=== PATIENT | male | born 1950 | race American Indian/Alaskan Native ===

== ENCOUNTER 2018-03-25 03:30 | Inpatient (IN) | payer MEDICARE ==
[2018-03-25 04:06] LABS: Basophils % (Auto) 0.4 % (0.0-1.8); Eosinophils # (Auto) 0.6 K/mm3 (0.0-0.4); Eosinophils % (Auto) 11.6 % (0.0-4.3); Hematocrit 34.6 % (35.5-45.6); Hemoglobin 11.1 gm/dl (11.8-15.2); Lymphocytes # (Auto) 1.5 K/mm3 (1.2-5.4); Lymphocytes % (Auto) 28.8 % (13.4-35.0); Mean Corpuscular HGB Conc 32 % (32-34); Mean Corpuscular Volume 97 fl (84-94); Monocytes # (Auto) 0.5 K/mm3 (0.0-0.8); Monocytes % (Auto) 9.7 % (0.0-7.3); Platelet Count 236 K/mm3 (140-440); Red Blood Count 3.56 M/mm3 (3.65-5.03); Red Cell Distribution Width 16.6 % (13.2-15.2)
[2018-03-25 04:23] LABS: Calcium 8.8 mg/dL (8.4-10.2)
--- NOTE | 2018-03-25 04:32 | XRay Report ---
FINAL REPORT EXAM: XR CHEST 1V AP HISTORY: sob TECHNIQUE: AP portable view(s) of the chest obtained. PRIORS: 08/08/2017 FINDINGS: No mediastinal shift. Cardiac silhouette is not enlarged. No pneumothorax, effusion, or focal pulmona ry opacity identified. No acute skeletal findings. IMPRESSION: No acute pulmonary finding identified.
[2018-03-25 04:53] LABS: Chol/HDL Ratio 3.31 %
--- NOTE | 2018-03-25 05:15 | Emergency Department Report ---
ED General Adult HPI - General Chief complaint: Chest Pain Stated complaint: MISSING DIALYSIS Time Seen by Provider: 03/25/18 03:57 Source: patient Mode of arrival: Ambulatory Limitations: No Limitations - History of Present Illness Initial comments: 67-year-old male with ESRD presents to the ED for dialysis. She states it has been one week since he was dialyzed states he missed 3 sessions because he was out of town. When patient returned to his dialysis clinic today, he was told to come to the ER. Patient reports very mild chest pain and shortness of breath. 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 States has no PCP. -: week(s) (1) Location: chest Consistency: intermittent Improves with: none Worsens with: none Associated Symptoms: chest pain, shortness of breath - Related Data Home Medications Medication Instructions Recorded Confirmed Last Taken Allopurinol [Zyloprim] 100 mg PO QDAY 11/02/17 03/25/18 01/04/18 Cholecalciferol (Vitamin D3) 2,000 unit PO DAILY 11/02/17 03/25/18 01/04/18 [Vitamin D3] Furosemide [Lasix] 80 mg PO DAILY 11/02/17 03/25/18 01/04/18 Omeprazole 40 mg PO QDAY 11/02/17 03/25/18 01/05/18 04:15 Previous Rx's Medication Instructions Recorded Last Taken Type AtorvaSTATin [Lipitor] 40 mg PO QHS #30 tab 08/14/17 01/04/18 Rx Polyethylene Glycol 3350 [Miralax 17 gm PO BID #60 packet 08/14/17 01/04/18 Rx 3350] Aspirin EC [Aspirin Enteric Coated 81 mg PO QDAY #30 tablet 11/04/17 01/04/18 Rx TAB] HYDROcodone/ACETAMINOPHEN 1 each PO Q6H PRN #20 tablet 01/05/18 Unknown Rx [Hydrocodone-Acetamin 5-325 mg] Allergies Allergy/AdvReac Type Severity Reaction Status Date / Time No Known Allergies Allergy Verified 11/02/17 07:12 ED Review of Systems ROS: Stated complaint: MISSING DIALYSIS Other details as noted in HPI Comment: All other systems reviewed and negative Constitutional: denies: chills, fever Respiratory: shortness of breath Cardiovascular: chest pain ED Past Medical Hx - Past Medical History Previous Medical History?: Yes Hx Hypertension: Yes Hx CVA: Yes Hx Heart Attack/AMI: Yes (07/2017) Hx Congestive Heart Failure: Yes Hx GERD: Yes Hx Renal Disease: Yes Hx Arthritis: Yes (Feet, ankles) Hx Seizures: No Hx Asthma: Yes (asymptomatic today) Hx HIV: No Additional medical history: cholesterol - Surgical History Past Surgical History?: Yes Additional Surgical History: Exploratory laparotomy for his pancreas - Social History Smoking Status: Current Every Day Smoker Substance Use Type: Marijuana - Medications Home Medications: Home Medications Medication Instructions Recorded Confirmed Last Taken Type AtorvaSTATin [Lipitor] 40 mg PO QHS #30 tab 08/14/17 03/25/18 01/04/18 Rx Polyethylene Glycol 3350 [Miralax 17 gm PO BID #60 packet 08/14/17 03/25/18 01/04/18 Rx 3350] Allopurinol [Zyloprim] 100 mg PO QDAY 11/02/17 03/25/18 01/04/18 History Cholecalciferol (Vitamin D3) 2,000 unit PO DAILY 11/02/17 03/25/18 01/04/18 History [Vitamin D3] Furosemide [Lasix] 80 mg PO DAILY 11/02/17 03/25/18 01/04/18 History Omeprazole 40 mg PO QDAY 11/02/17 03/25/18 01/05/18 04:15 History Aspirin EC [Aspirin Enteric Coated 81 mg PO QDAY #30 tablet 11/04/17 03/25/18 01/04/18 Rx TAB] HYDROcodone/ACETAMINOPHEN 1 each PO Q6H PRN #20 tablet 01/05/18 03/25/18 Unknown Rx [Hydrocodone-Acetamin 5-325 mg] ED Physical Exam - General Limitations: No Limitations General appearance: alert, in no apparent distress - Head Head exam: Present: atraumatic, normocephalic - Eye Eye exam: Present: normal appearance - ENT ENT exam: Present: mucous membranes moist - Neck Neck exam: Present: normal inspection - Respiratory Respiratory exam: Present: normal lung sounds bilaterally. Absent: respiratory distress - Cardiovascular Cardiovascular Exam: Present: regular rate, normal rhythm - GI/Abdominal GI/Abdominal exam: Present: soft. Absent: distended - Extremities Exam Extremities exam: Present: normal inspection - Neurological Exam Neurological exam: Present: alert, oriented X3 - Psychiatric Psychiatric exam: Present: normal affect, normal mood - Skin Skin exam: Present: warm, dry, intact, normal color. Absent: rash ED Course Vital Signs 03/25/18 03/25/18 03/25/18 03:39 04:08 05:00 Temperature 98.3 F 97.9 F Pulse Rate 82 70 64 Respiratory 18 17 14 Rate Blood Pressure 187/86 148/79 Blood Pressure 137/72 [Right] O2 Sat by Pulse 98 100 97 Oximetry ED Medical Decision Making - Lab Data Result diagrams: 03/25/18 03:49 03/25/18 03:49 - EKG Data -: EKG Interpreted by Me EKG shows normal: sinus rhythm, axis, QRS complexes, ST-T waves Rate: normal - EKG Data Interpretation: other (prolonged QT) - Radiology Data Radiology results: report reviewed, image reviewed - Medical Decision Making 67-year-old male has not been to dialysis in one week. Potassium normal, patient in no respiratory distress, chest x-ray normal. No signs of pulmonary edema. Will admit patient so that he may be dialyzed. - Differential Diagnosis hyperkalemia, pulm edema Critical care attestation.: If time is entered above; I have spent that time in minutes in the direct care of this critically ill patient, excluding procedure time. ED Disposition Clinical Impression: ESRD (end stage renal disease) Disposition: -09 OP ADMIT IP TO THIS HOSP Is pt being admited?: Yes Condition: Stable Time of Disposition: 05:14
--- NOTE | 2018-03-25 15:30 | History and Physical Report ---
History of Present Illness Date of examination: 03/25/18 Date of admission: 03/25/18 05:14 Chief complaint: L AVF Malfunction History of present illness: 67-year-old male with ESRD presents to the ED for dialysis. paatient states his last HD was on Wednesday.He missed 2 HD sessions on Wednesday and . When patient returned to his dialysis clinic today, he was told to come to the ER. Patient reports very mild chest pain and shortness of breath.He follows with [facility].No Orthopnea. Past Medical History Previous Medical History?: Yes Hx Hypertension: Yes Hx CVA: Yes Hx Heart Attack/AMI: Yes (07/2017) Hx Congestive Heart Failure: Yes Hx GERD: Yes Hx Renal Disease: Yes Hx Arthritis: Yes (Feet, ankles) Hx Asthma: Yes (asymptomatic today) Additional medical history: cholesterol Surgical History Past Surgical History?: Yes Additional Surgical History: Exploratory laparotomy for his pancreas Social History Smoking Status: Current Every Day Smoker Substance Use Type: Marijuana Family History Htn Medications Home Medications: Home Medications Medication Instructions Recorded Confirmed Last Taken Type AtorvaSTATin [Lipitor] 40 mg PO QHS #30 tab 08/14/17 03/25/18 01/04/18 Rx Polyethylene Glycol 3350 [Miralax 17 gm PO BID #60 packet 08/14/17 03/25/18 01/04/18 Rx 3350] Allopurinol [Zyloprim] 100 mg PO QDAY 11/02/17 03/25/18 01/04/18 History Cholecalciferol (Vitamin D3) 2,000 unit PO DAILY 11/02/17 03/25/18 01/04/18 History [Vitamin D3] Furosemide [Lasix] 80 mg PO DAILY 11/02/17 03/25/18 01/04/18 History Omeprazole 40 mg PO QDAY 11/02/17 03/25/18 01/05/18 04:15 History Aspirin EC [Aspirin Enteric Coated 81 mg PO QDAY #30 tablet 11/04/17 03/25/18 01/04/18 Rx TAB] HYDROcodone/ACETAMINOPHEN 1 each PO Q6H PRN #20 tablet 01/05/18 03/25/18 Unknown Rx [Hydrocodone-Acetamin 5-325 mg] Review of Systems ROS: Stated complaint: MISSING DIALYSIS Other details as noted in HPI Comment: All other systems reviewed and negative Constitutional: denies: chills, fever Respiratory: shortness of breath Cardiovascular: chest pain Medications and Allergies Allergies Allergy/AdvReac Type Severity Reaction Status Date / Time No Known Allergies Allergy Verified 11/02/17 07:12 Home Medications Medication Instructions Recorded Confirmed Last Taken Type AtorvaSTATin [Lipitor] 40 mg PO QHS #30 tab 08/14/17 03/25/18 01/04/18 Rx Polyethylene Glycol 3350 [Miralax 17 gm PO BID #60 packet 08/14/17 03/25/18 01/04/18 Rx 3350] Allopurinol [Zyloprim] 100 mg PO QDAY 11/02/17 03/25/18 01/04/18 History Cholecalciferol (Vitamin D3) 2,000 unit PO DAILY 11/02/17 03/25/18 01/04/18 History [Vitamin D3] Furosemide [Lasix] 80 mg PO DAILY 11/02/17 03/25/18 01/04/18 History Omeprazole 40 mg PO QDAY 11/02/17 03/25/18 01/05/18 04:15 History Aspirin EC [Aspirin Enteric Coated 81 mg PO QDAY #30 tablet 11/04/17 03/25/18 1 03/06/17 Rx TAB] HYDROcodone/ACETAMINOPHEN 1 each PO Q6H PRN #20 tablet 01/05/18 03/25/18 Unknown Rx [Hydrocodone-Acetamin 5-325 mg] Exam - Constitutional Vitals: Temp Pulse Resp BP Pulse Ox 98.1 F 66 18 127/73 99 03/25/18 13:56 03/25/18 13:56 03/25/18 13:56 03/25/18 13:56 03/25/18 13:56 General appearance: Present: no acute distress, well-nourished - EENT Eyes: Present: PERRL ENT: hearing intact, clear oral mucosa - Neck Neck: Present: supple, normal ROM - Respiratory Respiratory effort: normal Respiratory: bilateral: CTA - Cardiovascular Heart rate: 78 Rhythm: regular Heart Sounds: Present: S1 & S2. Absent: rub, click - Extremities Extremities: no ischemia, pulses symmetrical, No edema, abnormal (L AVG --No thrill) Peripheral Pulses: within normal limits - Abdominal General gastrointestinal: Present: soft, non-tender, non-distended, normal bowel sounds Male genitourinary: Present: normal - Rectal Rectal Exam: deferred - Integumentary Integumentary: Present: clear, warm, dry - Musculoskeletal Musculoskeletal: gait normal, strength equal bilaterally - Psychiatric Psychiatric: appropriate mood/affect, intact judgment & insight - Neurologic Neurologic: CNII-XII intact, moves all extremities Results - Labs CBC & Chem 7: 03/25/18 03:49 03/25/18 03:49 Labs: Laboratory Last Values WBC 5.2 K/mm3 (4.5-11.0) 03/25/18 03:49 RBC 3.56 M/mm3 (3.65-5.03) L 03/25/18 03:49 Hgb 11.1 gm/dl (11.8-15.2) L 03/25/18 03:49 Hct 34.6 % (35.5-45.6) L 03/25/18 03:49 MCV 97 fl (84-94) H 03/25/18 03:49 MCH 31 pg (28-32) 03/25/18 03:49 MCHC 32 % (32-34) 03/25/18 03:49 RDW 16.6 % (13.2-15.2) H 03/25/18 03:49 Plt Count 236 K/mm3 (140-440) 03/25/18 03:49 Lymph % (Auto) 28.8 % (13.4-35.0) 03/25/18 03:49 [place] % (Auto) 9.7 % (0.0-7.3) H 03/25/18 03:49 Eos % (Auto) 11.6 % (0.0-4.3) H 03/25/18 03:49 Baso % (Auto) 0.4 % (0.0-1.8) 03/25/18 03:49 Lymph # 1.5 K/mm3 (1.2-5.4) 03/25/18 03:49 [place] # 0.5 K/mm3 (0.0-0.8) 03/25/18 03:49 Eos # 0.6 K/mm3 (0.0-0.4) H 03/25/18 03:49 Baso # 0.0 K/mm3 (0.0-0.1) 03/25/18 03:49 Seg Neutrophils % 49.5 % (40.0-70.0) 03/25/18 03:49 Seg Neutrophils # 2.6 K/mm3 (1.8-7.7) 03/25/18 03:49 Sodium 144 mmol/L (137-145) 03/25/18 03:49 Potassium 4.8 mmol/L (3.6-5.0) 03/25/18 03:49 Chloride 103.5 mmol/L (98-107) 03/25/18 03:49 Carbon Dioxide 24 mmol/L (22-30) 03/25/18 03:49 Anion Gap 21 mmol/L 03/25/18 03:49 BUN 79 mg/dL (9-20) H 03/25/18 03:49 Creatinine 14.2 mg/dL (0.8-1.5) H 03/25/18 03:49 Estimated GFR 4 ml/min 03/25/18 03:49 BUN/Creatinine Ratio 6 % 03/25/18 03:49 Glucose 96 mg/dL (75-100) 03/25/18 03:49 Calcium 8.8 mg/dL (8.4-10.2) 03/25/18 03:49 Troponin T 0.048 ng/mL (0.00-0.029) H 03/25/18 10:15 Triglycerides 153 mg/dL (2-149) H 03/25/18 03:49 Cholesterol 169 mg/dL (50-199) 03/25/18 03:49 LDL Cholesterol Direct 105 mg/dL (50-130) 03/25/18 03:49 HDL Cholesterol 51 mg/dL (40-59) 03/25/18 03:49 Cholesterol/HDL Ratio 3.31 % 03/25/18 03:49 Assessment and Plan Advance Directives: Yes (Full code) VTE prophylaxis?: Chemical Plan of care discussed with patient/family: Yes - Patient Problems (1) Acute exacerbation of CHF (congestive heart failure) Current Visit: No Status: Acute Qualifiers: Heart failure type: combined systolic and diastolic Qualified Code(s): I 50.43 - Acute on chronic combined systolic (congestive) and diastolic (congestive) heart failure Plan to address problem: Sec to volume overload Needs HD for increased UF (2) HTN (hypertension) Current Visit: Yes Status: Chronic Qualifiers: Hypertension type: essential hypertension Qualified Code(s): I10 - Essential (primary) hypertension Plan to address problem: Well controlled (3) Volume overload Current Visit: Yes Status: Acute (4) Malfunction of arteriovenous graft Current Visit: Yes Status: Acute Qualifiers: Encounter type: initial encounter Qualified Code(s): T82.590A - Other mechanical complication of surgically created arteriovenous fistula, initial encounter Plan to address problem: Vascular surgery consult requested (5) GERD (gastroesophageal reflux disease) Current Visit: Yes Status: Chronic Qualifiers: Esophagitis presence: without esophagitis Qualified Code(s): K21.9 - Gastro-esophageal reflux disease without esophagitis Plan to address problem: Cont Famotidine (6) HLD (hyperlipidemia) Current Visit: Yes Status: Chronic Qualifiers: Hyperlipidemia type: mixed hyperlipidemia Qualified Code(s): E78.2 - Mixed hyperlipidemia Plan to address problem: Cont statins (7) Gout Current Visit: Yes Status: Inactive Plan to address problem: Cont Allopurinol (8) DVT prophylaxis Current Visit: Yes Status: Acute Plan to address problem: On Heparin
[2018-03-25] MEDS ORDERED: REGLAN IV PRN (15:56)
[2018-03-25] MEDS ORDERED: DILAUDID IV PRN (15:56)
[2018-03-25] MEDS ORDERED: TYLENOL PO PRN (15:56)
[2018-03-25] MEDS ORDERED: ZOFRAN IV PRN (15:56)
[2018-03-25] MEDS ORDERED: SODIUM CHLORIDE FLUSH SYRINGE 10 ML IV PRN (15:56)
[2018-03-25] MEDS ORDERED: NORCO 5/325 PO PRN (16:02)
[2018-03-25] MEDS ORDERED: NON-FORMULARY (Furosemide [Lasix] 80 MG) PO SCH (16:15)
[2018-03-25] MEDS ORDERED: NON-FORMULARY (Cholecalciferol (Vitamin D3) [Vitamin D3] 2,000 UNIT) PO SCH (16:15)
[2018-03-25] MEDS: LASIX PO SCH (17:54)
[2018-03-25] MEDS: HALFPRIN EC PO SCH (17:54)
[2018-03-25] MEDS: ZYLOPRIM PO SCH (17:55)
[2018-03-25] MEDS: MIRALAX 3350 PO SCH (21:13)
[2018-03-25] MEDS: SODIUM CHLORIDE FLUSH SYRINGE 10 ML IV SCH (21:15)
[2018-03-25] MEDS ORDERED: PEPCID PO SCH (22:00)
[2018-03-25] MEDS: PEPCID PO SCH (22:36)
[2018-03-26 04:59] LABS: Basophils % (Auto) 0.7 % (0.0-1.8); Eosinophils # (Auto) 0.6 K/mm3 (0.0-0.4); Eosinophils % (Auto) 11.8 % (0.0-4.3); Hematocrit 32.6 % (35.5-45.6); Hemoglobin 10.6 gm/dl (11.8-15.2); Lymphocytes # (Auto) 1.5 K/mm3 (1.2-5.4); Mean Corpuscular HGB Conc 33 % (32-34); Mean Corpuscular Volume 96 fl (84-94); Monocytes # (Auto) 0.6 K/mm3 (0.0-0.8); Monocytes % (Auto) 10.8 % (0.0-7.3); Platelet Count 228 K/mm3 (140-440); Red Blood Count 3.39 M/mm3 (3.65-5.03); Red Cell Distribution Width 16.3 % (13.2-15.2)
[2018-03-26] MEDS: LASIX PO SCH (05:06)
[2018-03-26 05:15] LABS: Albumin 3.6 g/dL (3.9-5)
[2018-03-26] MEDS: PEPCID PO SCH ×2 (09:45→21:10)
[2018-03-26] MEDS: HALFPRIN EC PO SCH (09:46)
[2018-03-26] MEDS: ZYLOPRIM PO SCH (09:46)
[2018-03-26] MEDS: VITAMIN D3 PO SCH (09:46)
[2018-03-26] MEDS: MIRALAX 3350 PO SCH ×2 (09:46→21:11)
[2018-03-26] MEDS: SODIUM CHLORIDE FLUSH SYRINGE 10 ML IV SCH ×2 (09:47→21:11)
--- NOTE | 2018-03-26 10:27 | Consultation ---
History of Present Illness - Reason for Consult Consult date: 03/26/18 end stage renal disease, accelerated hypertension Requesting physician: LADARIUS TELLEZ - History of Present Illness 67-year-old male with ESRD presents to the ED for dialysis. She states it has been one week since he was dialyzed states he missed 3 sessions because he was out of town. When patient returned to his dialysis clinic today, he was told to come to the ER. Patient reports very mild chest pain and shortness of breath. 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 States has no PCP. -: week(s) (1) Location: chest Consistency: intermittent Improves with: none Worsens with: none Associated Symptoms: chest pain, shortness of breath ROS: Stated complaint: MISSING DIALYSIS Other details as noted in HPI Comment: All other systems reviewed and negative Constitutional: denies: chills, fever Respiratory: shortness of breath Cardiovascular: chest pain - Past Medical History Previous Medical History?: Yes Hx Hypertension: Yes Hx CVA: Yes Hx Heart Attack/AMI: Yes (07/2017) Hx Congestive Heart Failure: Yes Hx GERD: Yes Hx Renal Disease: Yes Hx Arthritis: Yes (Feet, ankles) Hx Seizures: No Hx Asthma: Yes (asymptomatic today) Hx HIV: No Additional medical history: cholesterol - Surgical History Past Surgical History?: Yes Additional Surgical History: Exploratory laparotomy for his pancreas - Social History Smoking Status: Current Every Day Smoker Substance Use Type: Marijuana Medications and Allergies Allergies Allergy/AdvReac Type Severity Reaction Status Date / Time No Known Allergies Allergy Verified 11/02/17 07:12 Home Medications Medication Instructions Recorded Confirmed Last Taken Type AtorvaSTATin [Lipitor] 40 mg PO QHS #30 tab 08/14/17 03/25/18 01/04/18 Rx Polyethylene Glycol 3350 [Miralax 17 gm PO BID #60 packet 08/14/17 03/25/18 01/04/18 Rx 3350] Allopurinol [Zyloprim] 100 mg PO QDAY 11/02/17 03/25/18 01/04/18 History Cholecalciferol (Vitamin D3) 2,000 unit PO DAILY 11/02/17 03/25/18 01/04/18 History [Vitamin D3] Furosemide [Lasix] 80 mg PO DAILY 11/02/17 03/25/18 01/04/18 History Omeprazole 40 mg PO QDAY 11/02/17 03/25/18 01/05/18 04:15 History Aspirin EC [Aspirin Enteric Coated 81 mg PO QDAY #30 tablet 11/04/17 03/25/18 01/04/18 Rx TAB] HYDROcodone/ACETAMINOPHEN 1 each PO Q6H PRN #20 tablet 01/05/18 03/25/18 Unknown Rx [Hydrocodone-Acetamin 5-325 mg] Active Meds: Active Medications Acetaminophen (Tylenol) 650 mg PO Q4H PRN PRN Reason: Pain MILD(1-3)/Fever >100.5/[place] Acetaminophen/Hydrocodone Bitart ([place] 5/325) 1 each PO Q6H PRN PRN Reason: Pain, Moderate (4-6) Allopurinol (Zyloprim) 100 mg PO QDAY [facility] Last Admin: 03/26/18 09:46 Dose: 100 mg Documented by: Aspirin (Halfprin Ec) 81 mg PO QDAY [facility] Last Admin: 03/26/18 09:46 Dose: 81 mg Documented by: Atorvastatin Calcium (Lipitor) 40 mg PO QHS [facility] Last Admin: 03/25/18 21:12 Dose: 40 mg Documented by: Cholecalciferol (Vitamin D3) 2,000 unit PO DAILY [facility] Last Admin: 03/26/18 09:46 Dose: 2,000 unit Documented by: Famotidine (Pepcid) 10 mg PO BID [facility] Last Admin: 03/26/18 09:45 Dose: 10 mg Documented by: Furosemide (Lasix) 80 mg PO DAILY@0600 [facility] Last Admin: 03/26/18 05:06 Dose: 80 mg Documented by: Hydromorphone HCl (Dilaudid) 0.5 mg IV Q3H PRN PRN Reason: Pain , Severe (7-10) Metoclopramide HCl (Reglan) 5 mg IV Q6H PRN PRN Reason: Nausea And Vomiting Ondansetron HCl (Zofran) 4 mg IV Q8H PRN PRN Reason: Nausea And Vomiting Polyethylene Glycol (Miralax 3350) 17 gm PO BID [facility] Last Admin: 03/26/18 09:46 Dose: 17 gm Documented by: Sodium Chloride (Sodium Chloride Flush Syringe 10 Ml) 10 ml IV BID [facility] Last Admin: 03/26/18 09:47 Dose: 10 ml Documented by: Sodium Chloride (Sodium Chloride Flush Syringe 10 Ml) 10 ml IV PRN PRN PRN Reason: LINE FLUSH Exam - Vital Signs Vital signs: Vital Signs Temp Pulse Resp BP Pulse Ox 98.3 F 82 18 187/86 98 03/25/18 03:39 03/25/18 03:39 03/25/18 03:39 03/25/18 03:39 03/25/18 03:39 - Physical Exam Narrative exam: - General Limitations: No Limitations General appearance: alert, in no apparent distress - Head Head exam: Present: atraumatic, normocephalic - Eye Eye exam: Present: normal appearance - ENT ENT exam: Present: mucous membranes moist - Neck Neck exam: Present: normal inspection - Respiratory Respiratory exam: Present: normal lung sounds bilaterally. Absent: respiratory distress - Cardiovascular Cardiovascular Exam: Present: regular rate, normal rhythm - GI/Abdominal GI/Abdominal exam: Present: soft. Absent: distended - Extremities Exam Extremities exam: Present: normal inspection - Neurological Exam Neurological exam: Present: alert, oriented X3 - Psychiatric Psychiatric exam: Present: normal affect, normal mood - Skin Skin exam: Present: warm, dry, intact, normal color. Absent: rash Results - Lab Results 03/26/18 04:12 03/26/18 04:12 Most recent lab results Calcium 8.0 mg/dL (8.4-10.2) L 03/26/18 04:12 Assessment and Plan impression * Chest pain * ESRD * noncompliance with dialysis * Hypertension * Anemia * Diabetes Recommendations * Continue dialysis on TTS schedule as outpatient * avoid nephrotoxins * Adjust diet and meds for ESRD state * No IV, BP or venipuncture in access arm * Procrit with dialysis * Binders with diet * OK to discharge after dialysis from renal standpoint
[2018-03-26] MEDS ORDERED: NACL 0.9% 100 ML IV PRN (10:29)
--- NOTE | 2018-03-26 12:14 | Consultation ---
History of Present Illness - Reason for Consult Consult date: 03/26/18 left arm AVF malfunction - History of Present Illness Patient admitted for that having dialysis for about a week. Last dialysis session was last and fascia was irrigated nonfunctional, clotted on Wednesday. Patient had to go out of town for and came back now. He is walking around ok, no SOB. Past History Past Medical History: diabetes, dialysis, hypertension Past Surgical History: Other (right knee surgery, right neck, permcath x 2, AVF, stomach surgeries) Social history: smoking, IV drug use (Marijuana) Medications and Allergies Allergies Allergy/AdvReac Type Severity Reaction Status Date / Time No Known Allergies Allergy Verified 11/02/17 07:12 Home Medications Medication Instructions Recorded Confirmed Last Taken Type AtorvaSTATin [Lipitor] 40 mg PO QHS #30 tab 08/14/17 03/25/18 01/04/18 Rx Polyethylene Glycol 3350 [Miralax 17 gm PO BID #60 packet 08/14/17 03/25/18 01/04/18 Rx 3350] Allopurinol [Zyloprim] 100 mg PO QDAY 11/02/17 03/25/18 01/04/18 History Cholecalciferol (Vitamin D3) 2,000 unit PO DAILY 11/02/17 03/25/18 01/04/18 History [Vitamin D3] Furosemide [Lasix] 80 mg PO DAILY 11/02/17 03/25/18 01/04/18 History Omeprazole 40 mg PO QDAY 11/02/17 03/25/18 01/05/18 04:15 History Aspirin EC [Aspirin Enteric Coated 81 mg PO QDAY #30 tablet 11/04/17 03/25/18 01/04/18 Rx TAB] HYDROcodone/ACETAMINOPHEN 1 each PO Q6H PRN #20 tablet 01/05/18 03/25/18 Unknown Rx [Hydrocodone-Acetamin 5-325 mg] Active Meds: Active Medications Acetaminophen (Tylenol) 650 mg PO Q4H PRN PRN Reason: Pain MILD(1-3)/Fever >100.5/[place] Acetaminophen/Hydrocodone Bitart ([place] 5/325) 1 each PO Q6H PRN PRN Reason: Pain, Moderate (4-6) Allopurinol (Zyloprim) 100 mg PO QDAY [facility] Last Admin: 03/26/18 09:46 Dose: 100 mg Documented by: Aspirin (Halfprin Ec) 81 mg PO QDAY [facility] Last Admin: 03/26/18 09:46 Dose: 81 mg Documented by: Atorvastatin Calcium (Lipitor) 40 mg PO QHS [facility] Last Admin: 03/25/18 21:12 Dose: 40 mg Documented by: Cholecalciferol (Vitamin D3) 2,000 unit PO DAILY [facility] Last Admin: 03/26/18 09:46 Dose: 2,000 unit Documented by: Famotidine (Pepcid) 10 mg PO BID [facility] Last Admin: 03/26/18 09:45 Dose: 10 mg Documented by: Furosemide (Lasix) 80 mg PO DAILY@0600 [facility] Last Admin: 03/26/18 05:06 Dose: 80 mg Documented by: Hydromorphone HCl (Dilaudid) 0.5 mg IV Q3H PRN PRN Reason: Pain , Severe (7-10) Sodium Chloride (Nacl 0.9%) 100 mls @ 999 mls/hr IV NAHOMI PRN PRN Reason: Hypotension Metoclopramide HCl (Reglan) 5 mg IV Q6H PRN PRN Reason: Nausea And Vomiting Ondansetron HCl (Zofran) 4 mg IV Q8H PRN PRN Reason: Nausea And Vomiting Polyethylene Glycol (Miralax 3350) 17 gm PO BID [facility] Last Admin: 03/26/18 09:46 Dose: 17 gm Documented by: Sodium Chloride (Sodium Chloride Flush Syringe 10 Ml) 10 ml IV BID [facility] Last Admin: 03/26/18 09:47 Dose: 10 ml Documented by: Sodium Chloride (Sodium Chloride Flush Syringe 10 Ml) 10 ml IV PRN PRN PRN Reason: LINE FLUSH Review of Systems All systems: negative (mentioned in HPI) Exam - Physical Exam Narrative exam: no thrill over left AVF site - Constitutional Vitals: Temp Pulse Resp BP Pulse Ox 98.1 F 68 18 145/85 96 03/26/18 07:56 03/26/18 07:56 03/26/18 07:56 03/26/18 07:56 03/26/18 07:56 General appearance: Present: no acute distress - Cardiovascular Heart Sounds: Present: S1 & S2 - Extremities Extremities: no ischemia Results - Labs CBC & Chem 7: 03/26/18 04:12 03/26/18 04:12 Labs: Abnormal lab results 03/26/18 03/26/18 Range/Units 04:12 04:12 RBC 3.39 L (3.65-5.03) M/mm3 Hgb 10.6 L (11.8-15.2) gm/dl Hct 32.6 L (35.5-45.6) % MCV 96 H (84-94) fl RDW 16.3 H (13.2-15.2) % [place] % (Auto) 10.8 H (0.0-7.3) % Eos % (Auto) 11.8 H (0.0-4.3) % Eos # 0.6 H (0.0-0.4) K/mm3 Potassium 5.2 H (3.6-5.0) mmol/L Chloride 111.7 H (98-107) mmol/L BUN 81 H (9-20) mg/dL Creatinine 14.0 H (0.8-1.5) mg/dL Glucose 70 L (75-100) mg/dL Calcium 8.0 L (8.4-10.2) mg/dL Albumin 3.6 L (3.9-5) g/dL Assessment and Plan 67-year-old with clotted AV access Plan for left arm AV graft creation on Wednesday If patient needs urgent dialysis over the weekend, we'll put a temporary catheter in.
[2018-03-26 12:32] LABS: Hepatitis B Surface Antigen Non-Reactive (Negative); Hepatitis C Virus Antibody Non-Reactive (NonReactive)
[2018-03-27] MEDS: LASIX PO SCH (05:30)
--- NOTE | 2018-03-27 06:26 | Progress Note ---
Assessment and Plan - Patient Problems (1) Acute exacerbation of CHF (congestive heart failure) Current Visit: No Status: Acute Qualifiers: Heart failure type: combined systolic and diastolic Qualified Code(s): I50.43 - Acute on chronic combined systolic (congestive) and diastolic (congestive) heart failure Plan to address problem: Sec to volume overload Needs HD for increased UF (2) HTN (hypertension) Current Visit: Yes Status: Chronic Qualifiers: Hypertension type: essential hypertension Qualified Code(s): I10 - Essential (primary) hypertension Plan to address problem: Well controlled (3) Volume overload Current Visit: Yes Status: Acute Plan to address problem: Needs HD Not acutely SOB (4) Malfunction of arteriovenous graft Current Visit: Yes Status: Acute Qualifiers: Encounter type: initial encounter Qualified Code(s): T82.590A - Other mechanical complication of surgically created arteriovenous fistula, initial encounter Plan to address problem: For AVG On Tuesday 03/28 D/w Dr Charles (5) GERD (gastroesophageal reflux disease) Current Visit: Yes Status: Chronic Qualifiers: Esophagitis presence: without esophagitis Qualified Code(s): K21.9 - Gastro-esophageal reflux disease without esophagitis Plan to address problem: Cont Famotidine (6) HLD (hyperlipidemia) Current Visit: Yes Status: Chronic Qualifiers: Hyperlipidemia type: mixed hyperlipidemia Qualified Code(s): E78.2 - Mixed hyperlipidemia Plan to address problem: Cont statins (7) Gout Current Visit: Yes Status: Inactive Plan to address problem: Cont Allopurinol (8) DVT prophylaxis Current Visit: Yes Status: Acute Plan to address problem: On Heparin Subjective Date of service: 03/26/18 Principal diagnosis: Clotted AV access Interval history: No SOB,Walking around Objective - Constitutional Vitals: Vital Signs - 12hr 03/26/18 03/26/18 03/27/18 20:04 22:00 00:13 Temperature 98.5 F Pulse Rate 66 Pulse Rate [ 69 Right Brachial] Respiratory 20 20 Rate Blood Pressure 174/89 140/86 O2 Sat by Pulse 98 98 Oximetry General appearance: Present: no acute distress, well-nourished - EENT Eyes: PERRL, EOM intact ENT: hearing intact, clear oral mucosa Ears: bilateral: normal - Neck Neck: supple, normal ROM - Respiratory Respiratory effort: normal Respiratory: bilateral: CTA - Breasts Breasts: normal - Cardiovascular Rhythm: regular Heart Sounds: Present: S1 & S2. Absent: gallop, rub Extremities: pulses intact, No edema, normal color, Full ROM - Gastrointestinal General gastrointestinal: Present: soft, non-tender, non-distended, normal bowel sounds - Genitourinary Male genitourinary: normal - Integumentary Integumentary: clear, warm, dry - Musculoskeletal Musculoskeletal: 1, strength equal bilaterally - Neurologic Neurologic: moves all extremities - Psychiatric Psychiatric: memory intact, appropriate mood/affect, intact judgment & insight - Labs CBC & Chem 7: 03/26/18 04:12 03/26/18 04:12
[2018-03-27] MEDS: PEPCID PO SCH ×2 (09:34→21:28)
[2018-03-27] MEDS: HALFPRIN EC PO SCH (09:34)
[2018-03-27] MEDS: VITAMIN D3 PO SCH (09:35)
[2018-03-27] MEDS: ZYLOPRIM PO SCH (09:35)
[2018-03-27] MEDS: MIRALAX 3350 PO SCH ×2 (09:36→21:28)
[2018-03-27] MEDS: SODIUM CHLORIDE FLUSH SYRINGE 10 ML IV SCH ×2 (09:36→21:28)
--- NOTE | 2018-03-27 12:10 | Progress Note ---
Assessment and Plan 67-year-old with clotted AV access Plan for left arm AV graft creation on Wednesday discussed with patient in detail Subjective Date of service: 03/27/18 Principal diagnosis: Clotted AV access Interval history: Patient is doing well, comfortable Objective - Exam Narrative Exam: no thrill over left AVF site - Constitutional Vitals: Vital Signs - 12hr 03/27/18 03/27/18 03/27/18 00:13 01:57 07:35 Temperature 98.2 F 98.5 F Pulse Rate 68 71 Pulse Rate [ Right Brachial] Respiratory 18 20 Rate Blood Pressure 140/86 163/85 129/72 O2 Sat by Pulse 94 95 Oximetry 03/27/18 10:00 Temperature Pulse Rate Pulse Rate [ 71 Right Brachial] Respiratory 20 Rate Blood Pressure O2 Sat by Pulse 95 Oximetry - Labs CBC & Chem 7: 03/26/18 04:12 03/26/18 04:12 Medications & Allergies - Medications Allergies/Adverse Reactions: Allergies No Known Allergies Allergy (Verified 11/02/17 07:12) Home Medications: Home Medications Medication Instructions Recorded Confirmed Last Taken Type AtorvaSTATin [Lipitor] 40 mg PO QHS #30 tab 08/14/17 03/25/18 01/04/18 Rx Polyethylene Glycol 3350 [Miralax 17 gm PO BID #60 packet 08/14/17 03/25/18 01/04/18 Rx 3350] Allopurinol [Zyloprim] 100 mg PO QDAY 11/02/17 03/25/18 01/04/18 History Cholecalciferol (Vitamin D3) 2,000 unit PO DAILY 11/02/17 03/25/18 01/04/18 History [Vitamin D3] Furosemide [Lasix] 80 mg PO DAILY 11/02/17 03/25/18 01/04/18 History Omeprazole 40 mg PO QDAY 11/02/17 03/25/18 01/05/18 04:15 History Aspirin EC [Aspirin Enteric Coated 81 mg PO QDAY #30 tablet 11/04/17 03/25/18 01/04/18 Rx TAB] HYDROcodone/ACETAMINOPHEN 1 each PO Q6H PRN #20 tablet 01/05/18 03/25/18 Unknown Rx [Hydrocodone-Acetamin 5-325 mg] Active Medications: Generic Name Dose Route Start Last Admin Trade Name Freq PRN Reason Stop Dose Admin Acetaminophen 650 mg 03/25/18 15:56 Tylenol PO Q4H PRN Pain MILD(1-3)/Fever >100.5/TH[place]ON Acetaminophen/Hydrocodone Bitart 1 each 03/25/18 16:02 [place] 5/325 PO Q6H PRN Pain, Moderate (4-6) Allopurinol 100 mg 03/25/18 17:00 03/27/18 09:35 Zyloprim PO 100 mg QDAY ZENAIDA Administration Aspirin 81 mg 03/25/18 17:00 03/27/18 09:34 Halfprin Ec PO 81 mg QDAY ZENAIDA Administration Atorvastatin Calcium 40 mg 03/25/18 22:00 03/26/18 21:10 Lipitor PO 40 mg QHS ZENAIDA Administration Cholecalciferol 2,000 unit 03/26/18 10:00 03/27/18 09:35 Vitamin D3 PO 2,000 unit DAILY ZENAIDA Administration Famotidine 10 mg 03/25/18 22:00 03/27/18 09:34 Pepcid PO 10 mg BID ZENAIDA Administration Furosemide 80 mg 03/25/18 17:00 03/27/18 05:30 Lasix PO 80 mg DAILY@0600 ZENAIDA Administration Hydromorphone HCl 0.5 mg 03/25/18 15:56 Dilaudid IV Q3H PRN Pain , Severe (7-10) Sodium Chloride 100 mls @ 999 mls/hr 03/26/18 10:29 Nacl 0.9% IV NAHOMI PRN Hypotension Metoclopramide HCl 5 mg 03/25/18 15:56 Reglan IV Q6H PRN Nausea And Vomiting Ondansetron HCl 4 mg 03/25/18 15:56 Zofran IV Q8H PRN Nausea And Vomiting Polyethylene Glycol 17 gm 03/25/18 22:00 03/27/18 09:36 Miralax 3350 PO 17 gm BID ZENAIDA Administration Sodium Chloride 10 ml 03/25/18 22:00 03/27/18 09:36 Sodium Chloride Flush Syringe 10 Ml IV 10 ml BID ZENAIDA Administration Sodium Chloride 10 ml 03/25/18 15:56 Sodium Chloride Flush Syringe 10 Ml IV PRN PRN LINE FLUSH
--- NOTE | 2018-03-27 12:14 | Progress Note ---
Assessment and Plan impression * Chest pain * ESRD * noncompliance with dialysis * Hypertension * Anemia * Diabetes Recommendations * Continue dialysis on TTS schedule as outpatient * plans for hd after vascular access placed * avoid nephrotoxins * Adjust diet and meds for ESRD state * No IV, BP or venipuncture in access arm * Procrit with dialysis * Binders with diet Subjective Date of service: 03/20/18 Principal diagnosis: Clotted AV access Interval history: resting in bed Objective - Exam Narrative Exam: - General Limitations: No Limitations General appearance: alert, in no apparent distress - Head Head exam: Present: atraumatic, normocephalic - Eye Eye exam: Present: normal appearance - ENT ENT exam: Present: mucous membranes moist - Neck Neck exam: Present: normal inspection - Respiratory Respiratory exam: Present: normal lung sounds bilaterally. Absent: respiratory distress - Cardiovascular Cardiovascular Exam: Present: regular rate, normal rhythm - GI/Abdominal GI/Abdominal exam: Present: soft. Absent: distended - Extremities Exam Extremities exam: Present: normal inspection - Neurological Exam Neurological exam: Present: alert, oriented X3 - Psychiatric Psychiatric exam: Present: normal affect, normal mood - Skin Skin exam: Present: warm, dry, intact, normal color. Absent: rash - Vital Signs Vital signs: Vital Signs - 12hr 03/27/18 03/27/18 03/27/18 01:57 07:35 10:00 Temperature 98.2 F 98.5 F Pulse Rate 68 71 Pulse Rate [ 71 Right Brachial] Respiratory 18 20 20 Rate Blood Pressure 163/85 129/72 O2 Sat by Pulse 94 95 95 Oximetry - Lab 03/26/18 04:12 03/26/18 04:12 Most recent lab results Calcium 8.0 mg/dL (8.4-10.2) L 03/26/18 04:12 Medications & Allergies - Medications Allergies/Adverse Reactions: Allergies No Known Allergies Allergy (Verified 11/02/17 07:12) Home Medications: Home Medications Medication Instructions Recorded Confirmed Last Taken Type AtorvaSTATin [Lipitor] 40 mg PO QHS #30 tab 08/14/17 03/25/18 01/04/18 Rx Polyethylene Glycol 3350 [Miralax 17 gm PO BID #60 packet 08/14/17 03/25/18 01/04/18 Rx 3350] Allopurinol [Zyloprim] 100 mg PO QDAY 09/06/1603/25/18 01/04/18 History Cholecalciferol (Vitamin D3) 2,000 unit PO DAILY 11/02/17 03/25/18 01/04/18 History [Vitamin D3] Furosemide [Lasix] 80 mg PO DAILY 11/02/17 03/25/18 01/04/18 History Omeprazole 40 mg PO QDAY 11/02/17 03/25/18 01/05/18 04:15 History Aspirin EC [Aspirin Enteric Coated 81 mg PO QDAY #30 tablet 11/04/17 03/25/18 01/04/18 Rx TAB] HYDROcodone/ACETAMINOPHEN 1 each PO Q6H PRN #20 tablet 01/05/18 03/25/18 Unknown Rx [Hydrocodone-Acetamin 5-325 mg] Active Medications: Generic Name Dose Route Start Last Admin Trade Name Freq PRN Reason Stop Dose Admin Acetaminophen 650 mg 03/25/18 15:56 Tylenol PO Q4H PRN Pain MILD(1-3)/Fever >100.5/[place] Acetaminophen/Hydrocodone Bitart 1 each 03/25/18 16:02 [place] 5/325 PO Q6H PRN Pain, Moderate (4-6) Allopurinol 100 mg 03/25/18 17:00 03/27/18 09:35 Zyloprim PO 100 mg QDAY ZENAIDA Administration Aspirin 81 mg 03/25/18 17:00 03/27/18 09:34 Halfprin Ec PO 81 mg QDAY ZENAIDA Administration Atorvastatin Calcium 40 mg 03/25/18 22:00 03/26/18 21:10 Lipitor PO 40 mg QHS ZENAIDA Administration Cholecalciferol 2,000 unit 03/26/18 10:00 03/27/18 09:35 Vitamin D3 PO 2,000 unit DAILY ZENAIDA Administration Famotidine 10 mg 03/25/18 22:00 03/27/18 09:34 Pepcid PO 10 mg BID ZENAIDA Administration Furosemide 80 mg 03/25/18 17:00 03/27/18 05:30 Lasix PO 80 mg DAILY@0600 ZENAIDA Administration Hydromorphone HCl 0.5 mg 03/25/18 15:56 Dilaudid IV Q3H PRN Pain , Severe (7-10) Sodium Chloride 100 mls @ 999 mls/hr 03/26/18 10:29 Nacl 0.9% IV NAHOMI PRN Hypotension Metoclopramide HCl 5 mg 03/25/18 15:56 Reglan IV Q6H PRN Nausea And Vomiting Ondansetron HCl 4 mg 03/25/18 15:56 Zofran IV Q8H PRN Nausea And Vomiting Polyethylene Glycol 17 gm 03/25/18 22:00 03/27/18 09:36 Miralax 3350 PO 17 gm BID ZENAIDA Administration Sodium Chloride 10 ml 03/25/18 22:00 03/27/18 09:36 Sodium Chloride Flush Syringe 10 Ml IV 10 ml BID ZENAIDA Administration Sodium Chloride 10 ml 03/25/18 15:56 Sodium Chloride Flush Syringe 10 Ml IV PRN PRN LINE FLUSH
--- NOTE | 2018-03-27 13:22 | Progress Note ---
Assessment and Plan / Acute exacerbation of CHF (congestive heart failure): Sec to volume overload, s/p emergent HD Now compensated, cont home meds EF 40-45% on 10/2017 /HTN (hypertension) Well controlled on current meds /Volume overload due to mossed HD, resolved now after HD / Malfunction of arteriovenous graft For AVG On Tuesday 03/[address] Charles / GERD (gastroesophageal reflux disease) Cont Famotidine / HLD (hyperlipidemia) Cont statins / Gout Cont Allopurinol /Atypical chest pain, denies now likely from GERD, troponin chronically elevated /Anemia of CD, follow h/h /DVT prophylaxis On Heparin Brief History: Patient admitted for that not having dialysis for about a week. Last dialysis session was last and fascia was irrigated nonfunctional, clotted on Wednesday. Patient was out of town for and came back now. Plan for AV graft placement on Wednesday. Subjective Date of service: 03/27/18 Principal diagnosis: Clotted AV access Interval history: Pt seen and examined denies chest pain or SOB tolerating diet, no acute issue Objective - Constitutional Vitals: Vital Signs - 12hr 03/27/18 03/27/18 03/27/18 01:57 07:35 10:00 Temperature 98.2 F 98.5 F Pulse Rate 68 71 Pulse Rate [ 71 Right Brachial] Respiratory 18 20 20 Rate Blood Pressure 163/85 129/72 O2 Sat by Pulse 94 95 95 Oximetry General appearance: Present: no acute distress, well-nourished - EENT Eyes: PERRL, EOM intact ENT: hearing intact, clear oral mucosa Ears: bilateral: normal - Neck Neck: supple, normal ROM - Respiratory Respiratory effort: normal Respiratory: bilateral: CTA - Cardiovascular Rhythm: regular Heart Sounds: Present: S1 & S2. Absent: gallop, rub Extremities: pulses intact, No edema, normal color, Full ROM - Gastrointestinal General gastrointestinal: Present: soft, non-tender, non-distended, normal bowel sounds - Integumentary Integumentary: clear, warm, dry - Musculoskeletal Musculoskeletal: 1, strength equal bilaterally - Neurologic Neurologic: moves all extremities - Psychiatric Psychiatric: memory intact, appropriate mood/affect, intact judgment & insight - Labs CBC & Chem 7: 03/26/18 04:12 03/28/18 05:53
[2018-03-27 14:38] LABS: Calcium 7.8 mg/dL (8.4-10.2)
[2018-03-28] MEDS: LASIX PO SCH (05:09)
[2018-03-28 06:50] LABS: Calcium 7.7 mg/dL (8.4-10.2)
[2018-03-28] MEDS: ZYLOPRIM PO SCH (09:18)
[2018-03-28] MEDS: HALFPRIN EC PO SCH (09:18)
[2018-03-28] MEDS: VITAMIN D3 PO SCH (09:18)
[2018-03-28] MEDS: PEPCID PO SCH ×2 (09:18→21:54)
[2018-03-28] MEDS: SODIUM CHLORIDE FLUSH SYRINGE 10 ML IV SCH ×2 (09:21→21:57)
[2018-03-28] MEDS: MIRALAX 3350 PO SCH ×2 (09:21→21:56)
--- NOTE | 2018-03-28 11:31 | Progress Note ---
Assessment and Plan impression * Chest pain * ESRD * noncompliance with dialysis * Hypertension * Anemia * Diabetes Recommendations * Continue dialysis on TTS schedule as outpatient * plans for hd after vascular access placed today * avoid nephrotoxins * Adjust diet and meds for ESRD state * No IV, BP or venipuncture in access arm * Procrit with dialysis * Binders with diet Subjective Date of service: 03/28/18 Principal diagnosis: Clotted AV access Interval history: resting in bed Objective - Exam Narrative Exam: - General Limitations: No Limitations General appearance: alert, in no apparent distress - Head Head exam: Present: atraumatic, normocephalic - Eye Eye exam: Present: normal appearance - ENT ENT exam: Present: mucous membranes moist - Neck Neck exam: Present: normal inspection - Respiratory Respiratory exam: Present: normal lung sounds bilaterally. Absent: respiratory distress - Cardiovascular Cardiovascular Exam: Present: regular rate, normal rhythm - GI/Abdominal GI/Abdominal exam: Present: soft. Absent: distended - Extremities Exam Extremities exam: Present: normal inspection - Neurological Exam Neurological exam: Present: alert, oriented X3 - Psychiatric Psychiatric exam: Present: normal affect, normal mood - Skin Skin exam: Present: warm, dry, intact, normal color. Absent: rash - Vital Signs Vital signs: Vital Signs - 12hr 03/28/18 03/28/18 03/28/18 02:15 02:17 02:18 Temperature 98.0 F Pulse Rate 75 Pulse Rate [ Right Radial] Respiratory Rate Blood Pressure 126/79 O2 Sat by Pulse Oximetry 03/28/18 03/28/18 03/28/18 08:04 08:40 10:00 Temperature 97.7 F Pulse Rate 72 Pulse Rate [ 72 Right Radial] Respiratory 18 Rate Blood Pressure 112/81 O2 Sat by Pulse 96 96 Oximetry - Lab 03/26/18 04:12 03/28/18 05:53 Most recent lab results Calcium 7.7 mg/dL (8.4-10.2) L 03/28/18 05:53 Medications & Allergies - Medications Allergies/Adverse Reactions: Allergies No Known Allergies Allergy (Verified 11/02/17 07:12) Home Medications: Home Medications Medication Instructions Recorded Confirmed Last Taken Type AtorvaSTATin [Lipitor] 40 mg PO QHS #30 tab 08/14/17 03/25/18 01/04/18 Rx Polyethylene Glycol 3350 [Miralax 17 gm PO BID #60 packet 08/14/17 03/25/18 01/04/18 Rx 3350] Allopurinol [Zyloprim] 100 mg PO QDAY 11/02/17 03/25/18 01/04/18 History Cholecalciferol (Vitamin D3) 2,000 unit PO DAILY 11/02/17 03/25/18 01/04/18 History [Vitamin D3] Furosemide [Lasix] 80 mg PO DAILY 11/02/17 03/25/18 01/04/18 History Omeprazole 40 mg PO QDAY 11/02/17 03/25/18 01/05/18 04:15 History Aspirin EC [Aspirin Enteric Coated 81 mg PO QDAY #30 tablet 11/04/17 03/25/18 01/04/18 Rx TAB] HYDROcodone/ACETAMINOPHEN 1 each PO Q6H PRN #20 tablet 01/05/18 03/25/18 Unknown Rx [Hydrocodone-Acetamin 5-325 mg] Active Medications: Generic Name Dose Route Start Last Admin Trade Name Freq PRN Reason Stop Dose Admin Acetaminophen 650 mg 03/25/18 15:56 Tylenol PO Q4H PRN Pain MILD(1-3)/Fever >100.5/THOMPSON Acetaminophen/Hydrocodone Bitart 1 each 03/25/18 16:02 [place] 5/325 PO Q6H PRN Pain, Moderate (4-6) Allopurinol 100 mg 03/25/18 17:00 03/28/18 09:18 Zyloprim PO 100 mg QDAY ZENAIDA Administration Aspirin 81 mg 03/25/18 17:00 03/28/18 09:18 Halfprin Ec PO 81 mg QDAY ZENAIDA Administration Atorvastatin Calcium 40 mg 03/25/18 22:00 03/27/18 21:28 Lipitor PO 40 mg QHS ZENAIDA Administration Cholecalciferol 2,000 unit 03/26/18 10:00 03/28/18 09:18 Vitamin D3 PO 2,000 unit DAILY ZENAIDA Administration Famotidine 10 mg 03/25/18 22:00 03/28/18 09:18 Pepcid PO 10 mg BID ZENAIDA Administration Furosemide 80 mg 03/25/18 17:00 03/28/18 05:09 Lasix PO 80 mg DAILY@0600 ZENAIDA Administration Hydromorphone HCl 0.5 mg 03/25/18 15:56 Dilaudid IV Q3H PRN Pain , Severe (7-10) Sodium Chloride 100 mls @ 999 mls/hr 03/26/18 10:29 Nacl 0.9% IV NAHOMI PRN Hypotension Metoclopramide HCl 5 mg 03/25/18 15:56 Reglan IV Q6H PRN Nausea And Vomiting Ondansetron HCl 4 mg 03/25/18 15:56 Zofran IV Q8H PRN Nausea And Vomiting Polyethylene Glycol 17 gm 03/25/18 22:00 03/28/18 09:21 Miralax 3350 PO Not Given BID ZENAIDA Sodium Chloride 10 ml 03/25/18 22:00 03/28/18 09:21 Sodium Chloride Flush Syringe 10 Ml IV 10 ml BID ZENAIDA Administration Sodium Chloride 10 ml 03/25/18 15:56 Sodium Chloride Flush Syringe 10 Ml IV PRN PRN LINE FLUSH
[2018-03-28] MEDS ORDERED: HEPARIN 10,000 UNITS/10 ML ONE (13:33)
[2018-03-28] MEDS ORDERED: MARCAINE-EPI/PF 0.25%-1:200,000 INFILTRATI ONE ×2 (13:33→14:49)
[2018-03-28] MEDS ORDERED: XYLOCAINE 1%/ EPI 1:100,000 INFILTRATI ONE ×2 (13:33→13:34)
[2018-03-28] MEDS ORDERED: THROMBIN (BOVINE) TP ONE (13:33)
[2018-03-28] MEDS ORDERED: GELFOAM TP ONE (13:34)
[2018-03-28] MEDS ORDERED: NACL 0.9% 500 ML 500 ML ONE (13:34)
[2018-03-28] MEDS ORDERED: ANCEF/STERILE WATER 2 GM/20 ML 2 GM/20 ML SYRINGE IV ONE (14:32)
--- NOTE | 2018-03-28 14:48 | Discharge Summary ---
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 Notified:: Sasha Phone number called:: [phone] Was contact made?: Yes If yes, spoke with:: Sasha Time called:: 09:00 03/25/18 13:19 Physical Therapy Evaluation and Treat [CONS] Routine Comment: Reason For Exam: General Weakness 03/25/18 15:54 Consult to Physician [CONS] Routine Comment: Consulting Provider: TEENA MOORE Physician Instructions: Reason For Exam: ESRD on HD 03/25/18 15:55 Consult to Physician [CONS] Routine Comment: Consulting Provider: ADALID PADILLA Physician Instructions: Reason For Exam: Malfunctioning AV Graft L arm Primary care physician: YENNI WHITT Hospitalization Reason for admission: missed HD Condition: Stable Pertinent studies: CXR : No acute pulmonary finding identified. Hospital course: Brief History: Patient admitted for that not having dialysis for about a week. Last dialysis session was last and fascia was irrigated nonfunctional, clotted on Wednesday. Patient was out of town for and came back now. admitted for malfunctioning AVF, vascular consulted. Discharge diagnosis and management: / Acute exacerbation of CHF (congestive heart failure): Sec to volume overload, due to missed HD Now compensated, cont home meds EF 40-45% on 10/2017 /HTN (hypertension) Well controlled on current meds /Volume overload due to missed HD, resolved now after HD /hyperkalemia, due to ESRD, improved with HD / Malfunction of arteriovenous graft s/p AVG thombolysis On 03/[address] Charles, but it was rethrombosed s/p perm cath placed today for HD, will f/u outpt / GERD (gastroesophageal reflux disease) Cont Famotidine / HLD (hyperlipidemia) Cont statins / Gout Cont Allopurinol /Atypical chest pain, denies now likely from GERD, troponin chronically elevated /Anemia of CD, follow h/h /DVT prophylaxis On Heparin Disposition: DC/[place]-06 HOME UNDER HOME HL Time spent for discharge: 34 minutes Core Measure Documentation - Palliative Care Palliative Care/ Comfort Measures: Not Applicable - Core Measures Any of the following diagnoses?: history only Exam - Physical Exam Narrative exam: General appearance: Present: no acute distress, well-nourished - EENT Eyes: PERRL, EOM intact ENT: hearing intact, clear oral mucosa Ears: bilateral: normal - Neck Neck: supple, normal ROM - Respiratory Respiratory effort: normal Respiratory: bilateral: CTA - Cardiovascular Rhythm: regular Heart Sounds: Present: S1 & S2. Absent: gallop, rub Extremities: pulses intact, No edema, normal color, Full ROM - Gastrointestinal General gastrointestinal: Present: soft, non-tender, non-distended, normal bowel sounds - Integumentary Integumentary: clear, warm, dry - Musculoskeletal Musculoskeletal: 1, strength equal bilaterally - Neurologic Neurologic: moves all extremities - Psychiatric Psychiatric: memory intact, appropriate mood/affect, intact judgment & insight - Constitutional Vitals: Temp Pulse Resp BP Pulse Ox 97.7 F 72 18 112/81 96 03/28/18 08:04 03/28/18 10:00 03/28/18 08:04 03/28/18 08:04 03/28/18 10:00 Plan Activity: advance as tolerated Weight Bearing Status: Weight Bear as Tolerated Diet: renal Follow up with: YENNI WHITT DO [Primary Care Provider] - 3-5 Days
[2018-03-28] MEDS ORDERED: NACL 0.9% IR ONE (14:49)
[2018-03-28] MEDS ORDERED: NACL 0.9% 500 ML IRRIGATION ONE (14:50)
[2018-03-28] MEDS ORDERED: HEPARIN 10,000 UNITS/10 ML IV ONE (14:51)
[2018-03-28] MEDS ORDERED: DIPRIVAN 10 MG/ML IV ONE (16:02)
[2018-03-28] MEDS ORDERED: SUBLIMAZE ONE (16:02)
[2018-03-28] MEDS ORDERED: ZOFRAN ONE (16:03)
--- NOTE | 2018-03-28 16:23 | Operative Report ---
Operative Report Operative Report: Operative note: Date: 03/28/2018 Preoperative diagnosis: Clotted left arm AV access Postoperative diagnosis: Same. Operation: Open thrombectomy of brachioaxillary AV graft. Fistulogram. Balloon angioplasty of axillary vein Surgeon: Lana Charles. Asst.: Jared Griffin Anesthesia: Gen. 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 No residual stenosis after angioplasty. Indications: 67-year-old gentleman came in with [id number] thrombosed AV access while he was out of town. He was discussed a possible placement of new AV graft. All risks, benefits and alternative procedure were discussed patient agreed and signed informed consent. Operative details: Patient was brought to the operating room and placed in supine position. Left arm was placed in extension table. It was ultrasounded before procedure and noted to have not AV fistula, but brachioaxillary AV graft. Decision was made to attempt to recover. Timeout was performed and all team members in agreement. Incision was made on the proximal portion of AV graft in a transverse fashion and dissected using electrocautery. Proximal and distal portions significantly graft was taken on vessel. Graftotomy was performed using 11 blade and extended with Thurman scissors. Proximal portion of AV graft toward the venous anastomosis thrombectomy was performed using #5 Damaso. Good backbleeding was seen. 7 [place] sheath was inserted. Fistulogram was performed identifying occlusion at the axillary vein at the venous anastomosis. Glidewire was advanced toward the lesion and vertebral catheter was followed. Wire was successfully maneuvered after few attempts into central system. Catheter was removed and 8 x 40 [place] balloon w as positioned at the occluded portion and balloon angioplasty was performed with few inflation 1 minute each. Postintervention venogram showed no residual stenosis. Thrombectomy of the graft was then performed with #5 Damaso and good backbleeding was appreciated. Next, I advanced #3 Damaso toward the arterial anastomosis and successful but there was performed with excellent backbleeding. It was irrigated with saline. An graftotomy was closed with 6-0 Prolene starting from each corner and finishing at the middle. At the end of procedure femoral and radial pulses were appreciated. Patient tolerated procedure well and was transferred to PACU in stable condition.
[2018-03-28] MEDS ORDERED: NACL 0.9 (PRIMING MACHINE ONLY DIALYSIS) MC ONE (18:19)
[2018-03-29 05:03] LABS: Basophils % (Auto) 0.5 % (0.0-1.8); Eosinophils # (Auto) 0.4 K/mm3 (0.0-0.4); Eosinophils % (Auto) 7.7 % (0.0-4.3); Hematocrit 34.4 % (35.5-45.6); Hemoglobin 10.8 gm/dl (11.8-15.2); Lymphocytes % (Auto) 18.2 % (13.4-35.0); Mean Corpuscular HGB Conc 32 % (32-34); Mean Corpuscular Volume 98 fl (84-94); Monocytes # (Auto) 0.5 K/mm3 (0.0-0.8); Monocytes % (Auto) 8.5 % (0.0-7.3); Platelet Count 128 K/mm3 (140-440); Red Blood Count 3.51 M/mm3 (3.65-5.03); Red Cell Distribution Width 16.6 % (13.2-15.2)
[2018-03-29] MEDS: LASIX PO SCH (05:44)
[2018-03-29 06:46] LABS: BUN/Creatinine Ratio TNR; Blood Urea Nitrogen TNR mg/dL (9-20); Calcium TNR mg/dL (8.4-10.2)
[2018-03-29 06:47] LABS: Hemolysis Index TNR
[2018-03-29 07:32] LABS: Calcium 7.5 mg/dL (8.4-10.2)
[2018-03-29] MEDS ORDERED: HEPARIN/NS 5000 UNIT/500ML(CATH LAB) 500 ML IR ONE (09:25)
[2018-03-29] MEDS ORDERED: HEPARIN 10,000 UNITS/10 ML ONE (09:25)
[2018-03-29] MEDS ORDERED: NACL 0.9% 250ML 250 ML ONE (09:35)
[2018-03-29] MEDS ORDERED: ANCEF/STERILE WATER 2 GM/20 ML 2 GM/20 ML SYRINGE IV ONE (09:48)
[2018-03-29] MEDS: VERSED ONE ×2 (09:49→10:02)
[2018-03-29] MEDS: SUBLIMAZE ONE ×2 (09:49→10:02)
[2018-03-29] MEDS: XYLOCAINE 2% INFILTRATI ONE ×2 (09:51→10:16)
--- NOTE | 2018-03-29 11:01 | Operative Report ---
Operative Report Operative Report: Operative note: Date: 03/29/2018 Preoperative diagnosis: Renal failure, thrombosed AV graft Postoperative diagnosis: Same. Operation: Left internal jugular PermCath insertion Surgeon: Lana Charles. Asst.: None Anesthesia: Gen. EBL: Minimal Indications: Renal failure requiring dialysis. Patient had missed dialysis for one week with knowing thrombosed AV graft. It was attempted to be rescued yesterday, however he thrombosed shortly after procedure. Patient needs dialysis access. Patient was discussed risks and benefits of procedure and chose to proceed, signed informed consent. Operative details: Patient was brought to the operating room and placed in supine position. She is left neck was prepped and draped in sterile fashion. Timeout was performed and all team members in agreement. Under ultrasound guidance left IJ was accessed with micropuncture needle. It was difficult to a dvance micropuncture wire shot with contrast was performed through the needle. This showed a tortuous left brachiocephalic vein. I used the 18 wire and navigated that through the turn into SVC. Micropuncture sheath was advanced. It was changed to a 5 [place] access sheath and used a vertebral catheter to navigate the wire into the IVC. J-wire was advanced into the distal IVC and catheter was removed. Tunnel was infiltrated with local anesthetic skin incision was created at the exit site. 27 cm PermCath was tunneled. Tract was dilated, but required a stiffer wire to go over that turn. I put a vertebral catheter again and changed J-wire to Amplatz wire. Tunnel was successfully dilated with serial dilators and peel-away sheath was inserted. The dilator from sheath was removed and wire was tracked into the PermCath tract into the peel-away sheath. It was positioned in the SVC atrial junction. Peel-away was peeled and the wire was maneuvered to remove extra curvature. It was secured in place using 2-0 nylon and Vicryl for entrance site. Ports were flushed and locked with 2 mL of heparin each. Sterile dressing was applied. Patient tolerated procedure well and was transferred to PACU in stable condition to go to dialysis. .
[2018-03-29] MEDS: MIRALAX 3350 PO SCH (11:04)
[2018-03-29] MEDS: PEPCID PO SCH (11:04)
[2018-03-29] MEDS: HALFPRIN EC PO SCH (11:04)
[2018-03-29] MEDS: SODIUM CHLORIDE FLUSH SYRINGE 10 ML IV SCH (11:04)
[2018-03-29] MEDS: VITAMIN D3 PO SCH (11:05)
[2018-03-29] MEDS: ZYLOPRIM PO SCH (11:05)
--- NOTE | 2018-03-29 12:59 | Progress Note ---
Assessment and Plan / Acute exacerbation of CHF (congestive heart failure): Sec to volume overload, as he is missed HD and now AVF is thrombosed Now compensated, cont home meds EF 40-45% on 10/2017 /HTN (hypertension) Well controlled on current meds /Volume overload due to mossed HD, resolved now after HD /hyperkalemia, due to ESRD, improved with HD / Malfunction of arteriovenous graft s/p AVG thombolysis today by Dr Charles, but it was rethrombosed planned for perm cath placement tomorrow for HD, / GERD (gastroesophageal reflux disease) Cont Famotidine / HLD (hyperlipidemia) Cont statins / Gout Cont Allopurinol /Atypical chest pain, denies now likely from GERD, troponin chronically elevated /Anemia of CD, follow h/h /DVT prophylaxis On Heparin Brief History: Patient admitted for that not having dialysis for about a week. Last dialysis session was last and fascia was irrigated nonfunctional, clotted on Wednesday. Patient was out of town for and came back now. Plan for AV graft placement on Wednesday. Subjective Date of service: 03/28/18 Principal diagnosis: Clotted AV access Interval history: Pt seen and examined denies chest pain or SOB tolerating diet, no acute issue unable to get HD as AVF didnot work even after thrombolysis Objective - Exam Narrative Exam: General appearance: Present: no acute distress, well-nourished - EENT Eyes: PERRL, EOM intact ENT: hearing intact, clear oral mucosa Ears: bilateral: normal - Neck Neck: supple, normal ROM - Respiratory Respiratory effort: normal Respiratory: bilateral: CTA - Cardiovascular Rhythm: regular Heart Sounds: Present: S1 & S2. Absent: gallop, rub Extremities: pulses intact, No edema, normal color, Full ROM - Gastrointestinal General gastrointestinal: Present: soft, non-tender, non-distended, normal bowel sounds - Integumentary Integumentary: clear, warm, dry - Musculoskeletal Musculoskeletal: 1, strength equal bilaterally - Neurologic Neurologic: moves all extremities - Psychiatric Psychiatric: memory intact, appropriate mood/affect, intact judgment & insight - Constitutional Vitals: Vital Signs - 12hr 03/29/18 03/29/18 03/29/18 01:44 02:35 07:37 Temperature 98.4 F 97.7 F Pulse Rate 74 72 Pulse Rate [ Right Radial] Respiratory 20 20 Rate Blood Pressure 122/76 141/76 O2 Sat by Pulse 96 95 Oximetry 03/29/18 03/29/18 10:00 11:10 Temperature 97.7 F Pulse Rate 66 Pulse Rate [ 72 Right Radial] Respiratory 18 18 Rate Blood Pressure 156/86 O2 Sat by Pulse Oximetry - Labs CBC & Chem 7: 03/29/18 03:56 03/29/18 06:58 Labs: Abnormal lab results 03/29/18 03/29/18 Range/Units 03:56 06:58 RBC 3.51 L (3.65-5.03) M/mm3 Hgb 10.8 L (11.8-15.2) gm/dl Hct 34.4 L (35.5-45.6) % MCV 98 H (84-94) fl RDW 16.6 H (13.2-15.2) % Plt Count 128 L (140-440) K/mm3 [place] % (Auto) 8.5 H (0.0-7.3) % Eos % (Auto) 7.7 H (0.0-4.3) % Lymph # 1.0 L (1.2-5.4) K/mm3 Potassium 5.1 H (3.6-5.0) mmol/L Carbon Dioxide 19 L (22-30) mmol/L BUN 86 H (9-20) mg/dL Creatinine 14.9 H (0.8-1.5) mg/dL Calcium 7.5 L (8.4-10.2) mg/dL
[2018-03-29 14:54] VITALS: BP 140/83
--- NOTE | 2018-03-29 15:40 | Progress Note ---
Assessment and Plan impression * Chest pain * ESRD * noncompliance with dialysis * Hypertension * Anemia * Diabetes Recommendations * Continue dialysis on TTS schedule as outpatient * new perm cath placed * avoid nephrotoxins * Adjust diet and meds for ESRD state * No IV, BP or venipuncture in access arm * Procrit with dialysis * Binders with diet * ok to dc home today Subjective Date of service: 03/29/18 Principal diagnosis: Clotted AV access Interval history: resting in bed Objective - Exam Narrative Exam: - General Limitations: No Limitations General appearance: alert, in no apparent distress - Head Head exam: Present: atraumatic, normocephalic - Eye Eye exam: Present: normal appearance - ENT ENT exam: Present: mucous membranes moist - Neck Neck exam: Present: normal inspection - Respiratory Respiratory exam: Present: normal lung sounds bilaterally. Absent: respiratory distress - Cardiovascular Cardiovascular Exam: Present: regular rate, normal rhythm - GI/Abdominal GI/Abdominal exam: Present: soft. Absent: distended - Extremities Exam Extremities exam: Present: normal inspection - Neurological Exam Neurological exam: Present: alert, oriented X3 - Psychiatric Psychiatric exam: Present: normal affect, normal mood - Skin Skin exam: Present: warm, dry, intact, normal color. Absent: rash - Vital Signs Vital signs: Vital Signs - 12hr 03/29/18 03/29/18 03/29/18 07:37 10:00 11:10 Temperature 97.7 F 97.7 F Pulse Rate 72 66 Pulse Rate [ 72 Right Radial] Respiratory 20 18 18 Rate Blood Pressure 141/76 156/86 O2 Sat by Pulse 95 Oximetry 03/29/18 03/29/18 03/29/18 11:15 11:30 11:45 Temperature Pulse Rate 67 72 74 Pulse Rate [ Right Radial] Respiratory Rate Blood Pressure 163/91 140/89 156/94 O2 Sat by Pulse Oximetry 03/29/18 03/29/18 03/29/18 12:00 12:15 12:30 Temperature Pulse Rate 72 78 72 Pulse Rate [ Right Radial] Respiratory Rate Blood Pressure 133/95 154/92 130/88 O2 Sat by Pulse Oximetry 03/29/18 03/29/18 03/29/18 12:45 13:00 13:15 Temperature Pulse Rate 76 75 89 Pulse Rate [ Right Radial] Respiratory Rate Blood Pressure 135/91 140/95 131/91 O2 Sat by Pulse Oximetry 03/29/18 03/29/18 03/29/18 13:30 13:45 14:00 Temperature Pulse Rate 78 76 76 Pulse Rate [ Right Radial] Respiratory Rate Blood Pressure 125/90 136/88 135/91 O2 Sat by Pulse Oximetry 03/29/18 03/29/18 03/29/18 14:15 14:30 14:40 Temperature Pulse Rate 83 75 76 Pulse Rate [ Right Radial] Respiratory Rate Blood Pressure 130/92 142/88 140/83 O2 Sat by Pulse Oximetry - Lab 03/29/18 03:56 03/29/18 06:58 Most recent lab results Calcium 7.5 mg/dL (8.4-10.2) L 03/29/18 06:58 Medications & Allergies - Medications Allergies/Adverse Reactions: Allergies No Known Allergies Allergy (Verified 11/02/17 07:12) Home Medications: Home Medications Medication Instructions Recorded Confirmed Last Taken Type AtorvaSTATin [Lipitor] 40 mg PO QHS #30 tab 08/14/17 03/25/18 01/04/18 Rx Polyethylene Glycol 3350 [Miralax 17 gm PO BID #60 packet 08/14/17 03/25/18 1108/16 Rx 3350] Allopurinol [Zyloprim] 100 mg PO QDAY 11/02/17 03/25/18 01/04/18 History Cholecalciferol (Vitamin D3) 2,000 unit PO DAILY 11/02/17 03/25/18 01/04/18 History [Vitamin D3] Furosemide [Lasix] 80 mg PO DAILY 11/02/17 03/25/18 01/04/18 History Omeprazole 40 mg PO QDAY 11/02/17 03/25/18 01/05/18 04:15 History Aspirin EC [Aspirin Enteric Coated 81 mg PO QDAY #30 tablet 11/04/17 03/25/18 01/04/18 Rx TAB] HYDROcodone/ACETAMINOPHEN 1 each PO Q6H PRN #20 tablet 01/05/18 03/25/18 Unknown Rx [Hydrocodone-Acetamin 5-325 mg] Active Medications: Generic Name Dose Route Start Last Admin Trade Name Freq PRN Reason Stop Dose Admin Acetaminophen 650 mg 03/25/18 15:56 Tylenol PO Q4H PRN Pain MILD(1-3)/Fever >100.5/[place] Acetaminophen/Hydrocodone Bitart 1 each 03/25/18 16:02 [place] 5/325 PO Q6H PRN Pain, Moderate (4-6) Allopurinol 100 mg 03/25/18 17:00 03/29/18 11:05 Zyloprim PO Not Given QDAY [facility] Aspirin 81 mg 03/25/18 17:00 03/29/18 11:04 Halfprin Ec PO Not Given QDAY [facility] Atorvastatin Calcium 40 mg 03/25/18 22:00 03/28/18 21:54 Lipitor PO 40 mg QHS [facility] Administration Cholecalciferol 2,000 unit 03/26/18 10:00 03/29/18 11:05 Vitamin D3 PO Not Given DAILY [facility] Famotidine 10 mg 03/25/18 22:00 03/29/18 11:04 Pepcid PO Not Given BID [facility] Furosemide 80 mg 03/25/18 17:00 03/29/18 05:44 Lasix PO Not Given DAILY@0600 [facility] Hydromorphone HCl 0.5 mg 03/25/18 15:56 Dilaudid IV Q3H PRN Pain , Severe (7-10) Sodium Chloride 100 mls @ 999 mls/hr 03/26/18 10:29 Nacl 0.9% IV NAHOMI PRN Hypotension Metoclopramide HCl 5 mg 03/25/18 15:56 Reglan IV Q6H PRN Nausea And Vomiting Ondansetron HCl 4 mg 03/25/18 15:56 Zofran IV Q8H PRN Nausea And Vomiting Polyethylene Glycol 17 gm 03/25/18 22:00 03/29/18 11:04 Miralax 3350 PO Not Given BID [facility] Sodium Chloride 10 ml 03/25/18 22:00 03/29/18 11:04 Sodium Chloride Flush Syringe 10 Ml IV Not Given BID [facility] Sodium Chloride 10 ml 03/25/18 15:56 Sodium Chloride Flush Syringe 10 Ml IV PRN PRN LINE FLUSH
[2018-03-29] MEDS ORDERED: NACL 0.9 (PRIMING MACHINE ONLY DIALYSIS) MC ONE (15:52)
== END 2018-03-29 18:25 | disposition home health service (06) | DRG 252 ==
LOC: ED 03:30 → 2B-ACE 05:14 → OBSVTOIN 03-28 09:37
PROVIDERS: ADMIT Internal Medicine; ATTEND Internal Medicine
PROC: 05C80ZZ Extirpation of Matter from Left Axillary Vein, Open Approach (ICD-10-PCS; principal; 2018-03-28)
PROC: 05780DZ Dilation of Left Axillary Vein with Intraluminal Device, Open Approach (ICD-10-PCS; 2018-03-28)
PROC: B51W1ZZ Fluoroscopy of Dialysis Shunt/Fistula using Low Osmolar Contrast (ICD-10-PCS; 2018-03-28)
PROC: 5A1D70Z Performance of Urinary Filtration, Intermittent, Less than 6 Hours Per Day (ICD-10-PCS; 2018-03-29)
PROC: 0JH63XZ Insertion of Tunneled Vascular Access Device into Chest Subcutaneous Tissue and Fascia, Percutaneous Approach (ICD-10-PCS; 2018-03-29)
PROC: 02HV33Z Insertion of Infusion Device into Superior Vena Cava, Percutaneous Approach (ICD-10-PCS; 2018-03-29)
PROC: B548ZZA Ultrasonography of Superior Vena Cava, Guidance (ICD-10-PCS; 2018-03-29)
DX: T82.868A Thrombosis due to vascular prosthetic devices, implants and grafts, initial encounter (principal); I50.43 Acute on chronic combined systolic (congestive) and diastolic (congestive) heart failure; N18.6 End stage renal disease; T82.318A Breakdown (mechanical) of other vascular grafts, initial encounter; I13.2 Hypertensive heart and chronic kidney disease with heart failure and with stage 5 chronic kidney disease, or end stage renal disease; I25.2 Old myocardial infarction; K21.9 Gastro-esophageal reflux disease without esophagitis; M19.072 Primary osteoarthritis, left ankle and foot; M19.071 Primary osteoarthritis, right ankle and foot; J45.909 Unspecified asthma, uncomplicated; F17.210 Nicotine dependence, cigarettes, uncomplicated; Y83.8 Other surgical procedures as the cause of abnormal reaction of the patient, or of later complication, without mention of misadventure at the time of the procedure; Y92.89 Other specified places as the place of occurrence of the external cause; E78.2 Mixed hyperlipidemia; M10.9 Gout, unspecified; E11.22 Type 2 diabetes mellitus with diabetic chronic kidney disease; D63.8 Anemia in other chronic diseases classified elsewhere; E87.5 Hyperkalemia; E87.70 Fluid overload, unspecified; Z91.15 Patient's noncompliance with renal dialysis; Z79.82 Long term (current) use of aspirin; Z86.73 Personal history of transient ischemic attack (TIA), and cerebral infarction without residual deficits
CPT/HCPCS: 36415; 36558; 71045; 76937; 77001; 80048; 80053; 80061; 80074; 83036; 84484; 85025; 93005; 93010; G0378; A4649; A9270-GY; C1725; C1750; C1751; C1757; C1769; C1894; J0690; J1644; J2250; J2405; J2704; J3010; J7030; J7040; J7050; Q9966; Q9967

== ENCOUNTER 2018-05-19 07:13 | Day surgery (SDC) | payer MEDICARE ==
[~2018-05-19 07:13] MED LIST: ANCEF/STERILE WATER 2 GM/20 ML 2 GM/20 ML SYRINGE IV NR; NACL 0.9% 1000 ML 1,000 ML IV SCH; VERSED IV NR
[2018-05-19] MEDS ORDERED: XYLOCAINE MPF 2% ONE (07:17)
[2018-05-19] MEDS ORDERED: DIPRIVAN 10 MG/ML IV ONE (07:18)
[2018-05-19] MEDS ORDERED: SUBLIMAZE ONE (07:18)
[2018-05-19] MEDS ORDERED: XYLOCAINE 1%/ EPI 1:100,000 INFILTRATI ONE (07:44)
[2018-05-19] MEDS ORDERED: MARCAINE 0.5% INFILTRATI ONE ×3 (07:44→09:05)
[2018-05-19] MEDS ORDERED: NACL 0.9% 500 ML 500 ML ONE (07:44)
[2018-05-19] MEDS ORDERED: HEPARIN 10,000 UNITS/10 ML ONE (07:44)
[2018-05-19] MEDS ORDERED: SODIUM BICARBONATE ONE (07:45)
[2018-05-19] MEDS ORDERED: PROVENTIL IH ONE (08:03)
[2018-05-19] MEDS ORDERED: PEPCID IV ONE (08:04)
--- NOTE | 2018-05-19 08:41 | Anesthesia Day of Surgery ---
Anesthesia Day of Surgery - Day of Surgery Patient Examined: Yes Patient H&P Reviewed: Yes Patient is NPO: Yes
--- NOTE | 2018-05-19 08:41 | Anesthesia Consultation ---
Anesthesia Consult and Med Hx Date of service: 05/19/18 - Airway Anesthetic Teeth Evaluation: Poor ROM Head & Neck: Adequate Mental/Hyoid Distance: Adequate Mallampati Class: Class III Intubation Access Assessment: Probably Good (previous easy LMA placements) - Pulmonary Exam CTA: No (expiratory wheezing and rhonchi somewhat improved with cough) - Cardiac Exam Cardiac Exam: RRR - Pre-Operative Health Status ASA Pre-Surgery Classification: ASA4 Proposed Anesthetic Plan: General - Pulmonary Hx Smoking: Yes Hx Asthma: Yes (albuterol neb in POHA) Hx Respiratory Symptoms: Yes (chronic productive cough) Home Oxygen Therapy: No Hx Sleep Apnea: Yes (noncompliant with CPAP) - Cardiovascular System Hx Hypertension: Yes Hx Coronary Artery Disease: Yes Hx Heart Attack/AMI: Yes (07/2017) Hx Percutaneous Transluminal Coronary Angioplasty (PTCA): No Hx Cardia Arrhythmia: No - Central Nervous System CVA: Yes (no residual deficits) Hx Psychiatric Problems: No - Endocrine Hx Renal Disease: Yes Hx End Stage Renal Disease: Yes (last HD 05/18/18) Hx Non-Insulin Dependent Diabetes: Yes Hx Thyroid Disease: No - Hematic Hx Anemia: Yes - Other Systems Hx Substance Use: Yes (Marijuana daily) Hx Cancer: No Hx Obesity: Yes - Additional Comments Anesthesia Medical History Comments: No hx anesthetic complications. Hx CHF with EF 45-50% in 2018.
[2018-05-19] MEDS ORDERED: SUBLIMAZE IV PRN (09:00)
[2018-05-19] MEDS ORDERED: NACL 0.9% 500 ML IRRIGATION ONE (09:03)
[2018-05-19] MEDS ORDERED: NACL 0.9% IR ONE (09:03)
[2018-05-19] MEDS ORDERED: HEPARIN 10,000 UNITS/10 ML IV ONE (09:04)
--- NOTE | 2018-05-19 11:17 | Operative Report ---
Operative Report Operative Report: Date of procedure: 05/19/2018 Pre-operative diagnosis: Mechanical complication of AV graft, end-stage renal disease Post-operative diagnosis: Same Procedure name(s): Creation of brachial artery to axillary vein hemodialysis graft right arm using bovine carotid artery (Artegraft) Surgeon: Leif Oliver MD Cellophane Tester: None Anesthesia: Gen. via LMA EBL: Minimal Specimen(s): None Complications: None Findings: Adequate caliber brachial artery. Good thrill and bruit in graft at the completion of surgery. All radial pulse. Procedure: Patient in the supine position with the right arm extended the entire extremity is prepped and draped using standard sterile technique. Through anesthetized skin longitudinal incision was made over the brachial pulse just above the antecubital fossa and carried down through the subcutaneous tissue. The brachial artery was identified and mobilized for several centimeters and encircled using vessel loops. Attention was then turned to the axilla where again a longitudinal incision was made through anesthetized skin and carried d own through subcutaneous tissue until the axillary vein was identified and mobilized for several centimeters. Attention was then again and turned to the brachial incision with artery was occluded and a longitudinal arteriotomy was then made. A 7 mm Artegraft t was brought into the surgical field,and an end to side anastomosis was then created using 6-0 Prolene suture and running technique. The arteriotomy was Smaller than the graft and the graft was cuffed in place using standard technique. Prior to completion of the suture line antegrade and retrograde flushing was performed. Suture line was then completed, the graft controlled and flow was released back to the hand. A curved Chantal-Wick tunneling device was used to create a curvilinear subcutaneous tunnel from the axillary incision into the brachial incision. The graft was then attached and withdrawn in a nonrotational fashion. Axillary vein was then controlled and opened longitudinally and the graft was then trimmed to an a ppropriate length and configuration and sutured end to side fashion with 6-0 Prolene suture 4 needle technique. The graft was then released evacuating air. Flow was then released retrograde down the brachial vein and subsequently released to the shoulder. Hemostasis was excellent. Graft developed a very nice thrill and bruit. There was a strong radial pulse at the completion of the procedure. Hemostasis was adequate. The incisions were then blocked with Marcaine 0.5% plain and closed in layers using 3-0 Vicryl subcutaneous for Monocryl subcuticular. Skin was reapproximated with octylseal. Patient was then extubated and returned to the recovery room in stable condition having tolerated the procedure well. Sponge and needle counts were correct.
[2018-05-19] MEDS ORDERED: BREVIBLOC IV ONE (11:20)
[2018-05-19] MEDS ORDERED: ZOFRAN ONE (11:20)
--- NOTE | 2018-05-19 11:21 | Short Stay Summary ---
Short Stay Documentation Date of service: 05/19/18 Narrative H&P: Patient is admitted to the operating room for outpatient creation of a hemodialysis graft in his right arm - History H&P: obtained from office - Allergies and Medications Current Medications: Allergies No Known Allergies Allergy (Verified 05/18/18 14:57) Home Medications Medication Instructions Recorded Confirmed Last Taken Type AtorvaSTATin [Lipitor] 40 mg PO QHS #30 tab 08/14/17 05/19/18 05/18/18 20:00 Rx Polyethylene Glycol 3350 [Miralax 17 gm PO BID #60 packet 08/14/17 05/19/18 05/18/18 20:00 Rx 3350] Allopurinol [Zyloprim] 100 mg PO QDAY 11/02/17 05/19/18 05/18/18 20:00 History Cholecalciferol (Vitamin D3) 2,000 unit PO DAILY 11/02/17 05/19/18 05/18/18 09:00 History [Vitamin D3] Furosemide [Lasix] 80 mg PO DAILY 11/02/17 05/19/18 05/18/18 20:00 History Omeprazole 40 mg PO QDAY 11/02/17 05/19/18 05/18/18 20:00 History Aspirin EC [Aspirin Enteric Coated 81 mg PO QDAY #30 tablet 11/04/17 05/19/18 05/18/18 20:00 Rx TAB] HYDROcodone/ACETAMINOPHEN 1 each PO Q6H PRN #20 tablet 01/05/18 05/18/18 Unknown Rx [Hydrocodone-Acetamin 5-325 mg] Active Medications Fentanyl (Sublimaze) 50 mcg IV Q5MIN PRN PRN Reason: Pain , Severe (7-10) Stop: 05/19/18 16:00 Sodium Chloride (Nacl 0.9% 1000 Ml) 1,000 mls @ 42 mls/hr IV DIRECT ZENAIDA Last Admin: 05/19/18 07:45 Dose: 42 mls/hr Documented by: Cefazolin Sodium (Ancef/Sterile Water 2 Gm/20 Ml) 2 gm in 20 mls @ 80 mls/hr IV PREOP NR; Protocol Stop: 05/19/18 23:59 Midazolam HCl (Versed) 2 mg IV PREOP NR Stop: 05/19/18 23:00 - Brief post op/procedure progress note Date of procedure: 05/19/18 Procedure: Pre-operative diagnosis: Mechanical complication of AV graft, end-stage renal disease Post-operative diagnosis: Same Procedure name(s): Creation of brachial artery to axillary vein hemodialysis graft right arm using bovine carotid artery (Artegraft) Surgeon: Leif Oliver MD Technical Coordinator: None Anesthesia: Gen. via LMA EBL: Minimal Specimen(s): None Complications: None Findings: Adequate caliber brachial artery. Good thrill and bruit in graft at the completion of surgery. All radial pulse. Procedure: Patient in the supine position with the right arm extended the entire extremity is prepped and draped using standard sterile technique. Through anesthetized skin longitudinal incision was made over the brachial pulse just above the antecubital fossa and carried down through the subcutaneous tissue. The brachial artery was identified and mobilized for several centimeters and encircled using vessel loops. Attention was then turned to the axilla where again a longitudinal incision was made through anesthetized skin and carried down through subcutaneous tissue until the axillary vein was identified and mobilized for several centimeters. Attention was then again and turned to the brachial incision with artery was occluded and a longitudinal arteriotomy was then made. A 7 mm Artegraft t was brought into the surgical field,and an end to side anastomosis was then created using 6-0 Prolene suture and running technique. The arteriotomy was Smaller than the graft and the graft was cuffed in place using standard technique. Prior to completion of the suture line antegrade and retrograde flushing was performed. Suture line was then completed, the graft controlled and flow was released back to the hand. A curved Chantal-Wick tunneling device was used to create a curvilinear subcutaneous tunnel from the axillary incision into the brachial incision. The graft was then attached and withdrawn in a nonrotational fashion. Axillary vein was then controlled and opened longitudinally and the graft was then trimmed to an appropriate length and configuration and sutured end to side fashion with 6-0 Prolene suture 4 needle technique. The graft was then released evacuating air. Flow was then released retrograde down the brachial vein and subsequently released to the shoulder. Hemostasis was excellent. Graft developed a very nice thrill and bruit. There was a strong radial pulse at the completion of the procedure. Hemostasis was adequate. The incisions were then blocked with Marcaine 0.5% plain and closed in layers using 3-0 Vicryl subcutaneous for Monocryl subcuticular. Skin was reapproximated with octylseal. Patient was then extubated and returned to the recovery room in stable condition having tolerated the procedure well. Sponge and needle counts were correct. - Hospital course Hospital course: Unremarkable - Disposition Condition at discharge: Stable Disposition: DC-01 TO HOME OR SELFCARE - Discharge Diagnoses (1) ESRD (end stage renal disease) on dialysis Status: Chronic (2) Malfunction of arteriovenous graft Status: Chronic Qualifiers: Encounter type: subsequent encounter Qualified Code(s): T82.590D - Other mechanical complication of surgically created arteriovenous fistula, subsequent encounter Short Stay Discharge Plan Activity: advance as tolerated Weight Bearing Status: Full Weight Bearing Diet: renal Wound: keep clean and dry Special Instructions: no heavy lifting Follow up with: YENNI WHITT DO [Primary Care Provider] - 7 Days LEIF OLIVER MD [Staff Physician] - 7 Days Prescriptions: HYDROcodone/ACETAMINOPHEN [Hydrocodone-Acetamin 5-325 mg] 1 each PO Q6H PRN #20 tablet PRN Reason: Pain, Moderate (4-6)
[2018-05-19] MEDS ORDERED: NEO SYNEPHRINE/NS Syringe(OR USE) IV ONE (11:48)
[2018-05-19] MEDS ORDERED: NORCO 5/325 PO PRN (13:38)
[2018-05-19 13:53] VITALS: BP 119/59
--- NOTE | 2018-05-19 15:15 | Post Anesthesia Evaluation ---
- Post Anesthesia Evaluation Patient Participated: Yes Airway Patent: Yes Stable Respiratory Function: Yes Nausea/Vomiting: No Temp > 96.8F: Yes Pain Manageable: Yes Adequeate Hydration: Yes Anesthesia Complications: No
== END 2018-05-19 07:14 | disposition home or self-care (01) ==
LOC: OR 07:13
PROVIDERS: ATTEND Surgery Vascular Surgery
DX: T82.590A Other mechanical complication of surgically created arteriovenous fistula, initial encounter (principal); I13.2 Hypertensive heart and chronic kidney disease with heart failure and with stage 5 chronic kidney disease, or end stage renal disease; E11.22 Type 2 diabetes mellitus with diabetic chronic kidney disease; N18.6 End stage renal disease; I50.9 Heart failure, unspecified; D64.9 Anemia, unspecified; K21.9 Gastro-esophageal reflux disease without esophagitis; E78.5 Hyperlipidemia, unspecified; M10.9 Gout, unspecified; I25.10 Atherosclerotic heart disease of native coronary artery without angina pectoris; E78.00 Pure hypercholesterolemia, unspecified; G47.30 Sleep apnea, unspecified; J45.909 Unspecified asthma, uncomplicated; F17.210 Nicotine dependence, cigarettes, uncomplicated; E66.9 Obesity, unspecified; Z68.31 Body mass index [BMI] 31.0-31.9, adult; Z98.890 Other specified postprocedural states; Z79.899 Other long term (current) drug therapy; Z79.82 Long term (current) use of aspirin; Z86.73 Personal history of transient ischemic attack (TIA), and cerebral infarction without residual deficits; Y83.8 Other surgical procedures as the cause of abnormal reaction of the patient, or of later complication, without mention of misadventure at the time of the procedure; Y92.89 Other specified places as the place of occurrence of the external cause
CPT/HCPCS: 36830; 82803; C1768; J0690; J1644; J2370; J2405; J2704; J3010; J7030; J7040

== ENCOUNTER 2018-06-09 08:03 | Inpatient (IN) | payer MEDICARE ==
[2018-06-09] MEDS ORDERED: VANCOMYCIN 1,500 MG in NACL 0.9% 500 ML 500 ML IV ONE (08:52)
[2018-06-09] MEDS ORDERED: VANCOMYCIN PHARMACY TO DOSE IV SCH ×2 (09:00→22:00)
[2018-06-09] MEDS ORDERED: MAXIPIME/NS 2 GM/100 ML 2 GM/100 ML BAG IV SCH (09:00)
--- NOTE | 2018-06-09 09:09 | XRay Report ---
AP CHEST: HISTORY: Fever, Rales Compared to 03/25/18. AP view of the chest demonstrates a normal mediastinal and cardiac contour with clear lungs and normal bony and soft tissue structures. Left IJ dual-lumen venous catheter terminates in the right atrium. No pneumothorax. IMPRESSION: Unremarkable AP chest.
[2018-06-09 09:37] LABS: Basophils # (Auto) 0.1 K/mm3 (0.0-0.1); Basophils % (Auto) 0.6 % (0.0-1.8); Eosinophils # (Auto) 0.1 K/mm3 (0.0-0.4); Eosinophils % (Auto) 1.1 % (0.0-4.3); Hematocrit 32.1 % (35.5-45.6); Hemoglobin 10.5 gm/dl (11.8-15.2); Lymphocytes # (Auto) 1.2 K/mm3 (1.2-5.4); Lymphocytes % (Auto) 9.6 % (13.4-35.0); Mean Corpuscular HGB Conc 33 % (32-34); Mean Corpuscular Volume 100 fl (84-94); Monocytes # (Auto) 0.9 K/mm3 (0.0-0.8); Monocytes % (Auto) 7.3 % (0.0-7.3); Platelet Count 237 K/mm3 (140-440); Red Blood Count 3.22 M/mm3 (3.65-5.03); Red Cell Distribution Width 16.8 % (13.2-15.2)
[2018-06-09] MEDS ORDERED: NACL 0.9% 1000 ML 1,000 ML IV ONE ×2 (10:37→11:54)
[2018-06-09] MEDS ORDERED: TYLENOL PO ONE ×2 (10:39→19:45)
[2018-06-09 10:50] LABS: Albumin 3.4 g/dL (3.9-5)
[2018-06-09 11:01] LABS: Chol/HDL Ratio 3.23 %
[2018-06-09 12:32] LABS: Albumin 3.7 g/dL (3.9-5); BUN/Creatinine Ratio 4; Blood Urea Nitrogen 45 mg/dL (9-20); Calcium 8.8 mg/dL (8.4-10.2); Hemolysis Index 157
[2018-06-09 12:42] LABS: Alanine Aminotransferase TNR units/L (7-56)
--- NOTE | 2018-06-09 15:00 | Emergency Department Report ---
ED Fever HPI - General Chief Complaint: Chest Pain Stated Complaint: WEAKNESS/CHEST PAIN Time Seen by Provider: 06/09/18 08:44 - History of Present Illness Initial Comments: Mr. Ramirez is a 68-year-old male with history of end-stage renal disease on dialysis Wednesday who presents with generalized weakness and chills. He is concerned for infection or clot in his catheter. He feels a sharp pain at the site radiating to his back. He has associated chest pain which he attributes to the catheter. According to his history, "I feel really bad.". He has such generalized weakness that he was unable to walk. Denies any focal weakness. Last month underwent AV graft placement in the right upper extremity by Dr. Leif Oliver for dialysis access. He currently receives dialysis through a tunneled catheter on the left side. He is unable to recall the name of his recovery assistant. He receives dialysis in [place]. Timing/Duration: yesterday Fever Severity/Quality: subjective ED Review of Systems ROS: Stated complaint: WEAKNESS/CHEST PAIN Other details as noted in HPI Comment: All other systems reviewed and negative Constitutional: chills, fever, malaise Respiratory: cough ED Past Medical Hx - Past Medical History Previous Medical History?: Yes Hx Hypertension: Yes Hx CVA: Yes Hx Heart Attack/AMI: Yes (07/2017) Hx Congestive Heart Failure: Yes Hx GERD: Yes Hx Renal Disease: Yes Hx Arthritis: Yes (Feet, ankles) Hx Asthma: Yes (albuterol neb in [facility]) Additional medical history: cholesterol - Surgical History Past Surgical History?: Yes Additional Surgical History: Exploratory laparotomy for his pancreas, AV graft placement right upper extremity April 2018 - Social History Smoking Status: Current Every Day Smoker Substance Use Type: None - Medications Home Medications: Home Medications Medication Instructions Recorded Confirmed Last Taken Type AtorvaSTATin [Lipitor] 40 mg PO QHS #30 tab 08/14/17 06/09/18 05/18/18 20:00 Rx Polyethylene Glycol 3350 [Miralax 17 gm PO BID #60 packet 08/14/17 06/09/18 05/18/18 20:00 Rx 3350] Allopurinol [Zyloprim] 100 mg PO QDAY 11/02/17 06/09/18 05/18/18 20:00 History Cholecalciferol (Vitamin D3) 2,000 unit PO DAILY 11/02/17 06/09/18 05/18/18 09:00 History [Vitamin D3] Furosemide [Lasix] 80 mg PO DAILY 11/02/17 06/09/18 05/18/18 20:00 History Omeprazole 40 mg PO QDAY 11/02/17 06/09/18 05/18/18 20:00 History Aspirin EC [Aspirin Enteric Coated 81 mg PO QDAY #30 tablet 11/04/17 06/09/18 05/18/18 20:00 Rx TAB] HYDROcodone/ACETAMINOPHEN 1 each PO Q6H PRN #20 tablet 05/19/18 06/09/18 Unknown Rx [Hydrocodone-Acetamin 5-325 mg] ED Physical Exam - General Limitations: No Limitations General appearance: alert, other (appears frail, appears ill) - Head Head exam: Present: atraumatic, normocephalic - Eye Eye exam: Present: normal appearance - ENT ENT exam: Present: mucous membranes moist - Neck Neck exam: Present: normal inspection, full ROM - Respiratory Respiratory exam: Present: normal lung sounds bilaterally. Absent: respiratory distress, wheezes, rales, rhonchi, chest wall tenderness - Cardiovascular Cardiovascular Exam: Present: normal rhythm, tachycardia, normal heart sounds, other (left chest, left neck: very dirty tunneled catheter with sediment and debris at the entry site). Absent: systolic murmur, diastolic murmur, rubs, gallop - GI/Abdominal GI/Abdominal exam: Present: soft, normal bowel sounds. Absent: distended, tenderness, guarding - Rectal Rectal exam: Present: deferred - Extremities Exam Extremities exam: Present: other (right upper extremity well-healed incisional wound) - Neurological Exam Neurological exam: Present: alert, oriented X3 - Psychiatric Psychiatric exam: Present: normal affect, normal mood - Skin Skin exam: Present: warm, dry, intact, normal color. Absent: rash ED Course Vital Signs 06/09/18 06/09/18 06/09/18 09:00 09:10 10:13 Temperature 100.1 F H Pulse Rate 114 H Respiratory 20 20 19 Rate Blood Pressure 118/56 O2 Sat by Pulse 99 100 Oximetry 06/09/18 06/09/18 06/09/18 10:15 10:30 10:45 Temperature Pulse Rate 114 H 118 H 116 H Respiratory 28 H 25 H 26 H Rate Blood Pressure 101/50 101/50 110/59 O2 Sat by Pulse 94 97 Oximetry 06/09/18 06/09/18 06/09/18 10:46 10:54 11:00 Temperature 103.1 F H Pulse Rate 115 H Respiratory 18 27 H Rate Blood Pressure 99/66 O2 Sat by Pulse 96 Oximetry 06/09/18 06/09/18 06/09/18 11:15 11:30 11:45 Temperature Pulse Rate 116 H 120 H 116 H Respiratory 23 27 H 27 H Rate Blood Pressure 115/54 101/47 84/43 O2 Sat by Pulse 96 96 99 Oximetry 06/09/18 06/09/18 06/09/18 12:00 12:15 12:31 Temperature Pulse Rate 113 H 111 H 107 H Respiratory 23 15 16 Rate Blood Pressure 86/36 85/38 85/38 O2 Sat by Pulse 99 100 100 Oximetry 06/09/18 06/09/18 06/09/18 12:45 13:01 13:15 Temperature Pulse Rate 106 H 111 H 111 H Respiratory 15 18 17 Rate Blood Pressure 120/54 O2 Sat by Pulse 100 96 Oximetry 06/09/18 13:31 Temperature Pulse Rate 115 H Respiratory 20 Rate Blood Pressure O2 Sat by Pulse Oximetry - Central Line Placement Right Femoral Consent Obtained: verbal consent Time Out Performed: Yes Patient Placed on Monitor/Pulse Ox: Yes Prep: mask, gown, gloves, other (drape) Central Line Prep: sterile drapes applied Local Anesthesia Used: Lidocaine 1% Amount of Anesthesia Used (mls): 5 Ultrasound Used for Placement: Yes Central Line Lumen Inserted: triple Bloods Obtained for Lab: Yes (repeat lactic acid and potassium assays) Central Line Position: good blood return, all ports aspirated, flus, sutured in place with nyl Dressing Applied: Tegaderm, other (biopatch) Patient Tolerated Procedure: well, no complications Complications: none ED Medical Decision Making - Lab Data Result diagrams: 06/09/18 09:05 06/09/18 13:00 Laboratory Results - last 24 hr 06/09/18 06/09/18 06/09/18 09:05 09:05 09:05 WBC 12.2 H RBC 3.22 L Hgb 10.5 L Hct 32.1 L MCV 100 H MCH 33 H MCHC 33 RDW 16.8 H Plt Count 237 Lymph % (Auto) 9.6 L [place] % (Auto) 7.3 Eos % (Auto) 1.1 Baso % (Auto) 0.6 Lymph # 1.2 [place] # 0.9 H Eos # 0.1 Baso # 0.1 Seg Neutrophils % 81.4 H Seg Neutrophils # 9.9 H Sodium 137 Potassium 5.1 H Chloride 101.5 Carbon Dioxide 16 L Anion Gap 25 BUN 45 H Creatinine 10.6 H Estimated GFR 6 BUN/Creatinine Ratio 4 Glucose 72 L Lactic Acid 2.50 H* Calcium 9.0 Total Bilirubin 0.40 AST 34 ALT 11 Alkaline Phosphatase 60 Troponin T 0.063 H Total Protein 8.1 Albumin 3.4 L Albumin/Globulin Ratio 0.7 Triglycerides 120 Cholesterol 152 LDL Cholesterol Direct 92 HDL Cholesterol 47 Cholesterol/HDL Ratio 3.23 06/09/18 10:32 WBC RBC Hgb Hct MCV MCH MCHC RDW Plt Count Lymph % (Auto) [place] % (Auto) Eos % (Auto) Baso % (Auto) Lymph # [place] # Eos # Baso # Seg Neutrophils % Seg Neutrophils # Sodium 138 Potassium TNR Chloride 98.8 Carbon Dioxide 15 L Anion Gap 31 BUN 45 H Creatinine 10.9 H Estimated GFR 6 BUN/Creatinine Ratio 4 Glucose 65 L Lactic Acid Calcium 8.8 Total Bilirubin 0.40 AST TNR ALT TNR Alkaline Phosphatase 63 Troponin T Total Protein 7.5 Albumin 3.7 L Albumin/Globulin Ratio 1.0 Triglycerides Cholesterol LDL Cholesterol Direct HDL Cholesterol Cholesterol/HDL Ratio - Radiology Data Radiology results: report reviewed AP portable chest radiograph no acute process according to radiology report - Medical Decision Making Mr. Bynum presents with septic shock notable fever hypotension which resolved with IV fluid. He received 2 L normal saline which is short of the recommended 30 ml/kg due to history of end-stage renal disease. Femoral CVL's place. The femoral site was indicated due to suspected line sepsis; in this setting internal jugular or subclavian sites would not be recommended. Admitted to [facility]. Nephrology service of Dr. Hearn and Tatiana Gotti consulted. Dr. Urbina will admit in guarded condition. Critical Care Time: Yes Critical care time in (mins) excluding proc time.: 65 Critical care attestation.: If time is entered above; I have spent that time in minutes in the direct care of this critically ill patient, excluding procedure time. 65 minutes of critical care time excluding procedures were used in the care of the patient. Patient required multiple assessments and interventions. I reviewed the electronic medical record. I spoke with consultants involved in the care of the patient. ED Disposition Clinical Impression: Septic shock, Line sepsis associated with dialysis catheter Disposition: OP ADMIT IP TO THIS HOSP Is pt being admited?: Yes Does the pt Need Aspirin: No Condition: Critical
[2018-06-09] MEDS: LEVOPHED DRIP 4 MG/NS 250 ML 4 MG/250 ML BAG IV SCH (17:56)
[2018-06-09] MEDS ORDERED: TYLENOL ONE (20:00)
[2018-06-09] MEDS ORDERED: NORCO 5/325 PO PRN (21:32)
--- NOTE | 2018-06-09 21:32 | Event Note ---
Date: 06/09/18 See H/p in reports Sepsis/Bacteremia Line infection ESRD
[2018-06-09] MEDS ORDERED: ZOFRAN IV PRN (21:33)
[2018-06-09] MEDS ORDERED: TYLENOL PO PRN (21:33)
[2018-06-09] MEDS ORDERED: DILAUDID IV PRN (21:33)
[2018-06-09] MEDS ORDERED: SODIUM CHLORIDE FLUSH SYRINGE 10 ML IV PRN (21:33)
[2018-06-09] MEDS ORDERED: MAXIPIME/NS 1 GM/100 ML 1 GM/100 ML BAG IV SCH ×2 (22:00)
[2018-06-09] MEDS: SODIUM CHLORIDE FLUSH SYRINGE 10 ML IV SCH (22:55)
[2018-06-10] MEDS ORDERED: LEVOPHED DRIP 4 MG/NS 250 ML 4 MG/250 ML BAG IV ONE (03:44)
[2018-06-10] MEDS: LEVOPHED DRIP 4 MG/NS 250 ML 4 MG/250 ML BAG IV SCH (05:09)
--- NOTE | 2018-06-10 07:28 | History and Physical Report ---
CHIEF COMPLAINT: 1. Chest pain. 2. Fevers. HISTORY OF PRESENT ILLNESS: A 68-year-old male with history of end-stage renal disease comes in for chest pain secondary to his Vas-Cath. The patient has Vas-Cath in left infraclavicular region. The patient goes for dialysis on Tuesdays, and Saturdays. The patient has generalized weakness, fever, and chills. The patient also stated that he is unable to walk because of the severe weakness and feels lightheaded. The patient underwent AV graft placement in the right upper extremity for dialysis access. He currently receives dialysis via tunnel catheter on the left side. Unable to tell the vehicle maintenance technician's name. No recent travel. The patient also cannot tell me the date of the Vas-Cath placed placement. PAST MEDICAL HISTORY: Significant for hypertension, cerebrovascular accident, acute CO in the past in July 2017, congestive heart failure, GERD, end-stage renal disease, arthritis, asthma, and hyperlipidemia. PAST SURGICAL HISTORY: Exploratory laparotomy for his pancreas, AV graft placement in the right upper extremity in April 2018. SOCIAL HISTORY: Smokes over a pack a day. FAMILY HISTORY: Hypertension. CURRENT MEDICATIONS: Lipitor 40 mg daily, MiraLax 17 grams twice a day, allopurinol 100 mg once a day, Lasix 80 mg once a day, omeprazole 40 mg once a day, hydrocodone 5/325 one tablet q.6 p.r.n. REVIEW OF SYSTEMS: Significant for fever, chills and generalized weakness and difficulty walking. PHYSICAL EXAMINATION: GENERAL: Elderly male, cooperative during examination. VITAL SIGNS: Initial temperature was 101.3, blood pressure was 106/83. Later, blood pressure was 90/40, pulse is 105, respirations are 16, sats of 99%. HEENT: Unremarkable. Pupils are equal and reactive. NECK: Supple, no lymphadenopathy, no thyromegaly. CHEST: Has a Vas-Cath in the left infraclavicular region. LUNGS: Clear to auscultation and percussion. Good air entry. No rhonchi. CARDIOVASCULAR: S1, S2 heard. No gallop, no murmur, no rub. Apical impulse in left fifth intercostal space and midclavicular line. ABDOMEN: Soft and benign. No hepatosplenomegaly. No guarding, no rigidity. EXTREMITIES: Has a right AV fistula. CENTRAL NERVOUS SYSTEM: Alert and oriented x 4, nonfocal exam. LABORATORY DATA: Significant for white count of 12,200, H and H of 10.5 and 32.1, platelet count of 237,000. Sodium is 138, potassium is 5.1, BUN and creatinine is 45 and 10.9, glucose is 65. Lactic acid is 2.5. Troponin is 0.063, albumin is 3.7, slightly low. Chest x-ray is unremarkable chest x-ray. ASSESSMENT AND PLAN: 1. Sepsis/bacteremia. Gram-negative rods were reported by the ED nurse. Identification to follow. The patient started on IV cefepime and IV vancomycin. A Cardiology consult requested. Microbiology shows Gram-positive cocci in clusters. The report called to me was Gram-negative rods. ID consult for antibiotic recommendations. Vas-Cath needs to be removed. Vascular Surgery to be consulted. 2. Vas-Cath infection. Vas-Cath has to be removed. Dr. Leif Oliver was consulted. 3. End-stage renal disease. Nephrology, Dr. Hearn consulted. The patient to continue dialysis on Wednesday, and Saturdays 4. Hypertension, mild at this point. We will give 500 mL saline bolus. If necessary, the patient to be started on Levophed. 5. Gout. Continue allopurinol. 6. Hyperlipidemia. Continue atorvastatin. 7. Hypertension. The patient not on any medications at this point. 8. Deep venous thrombosis prophylaxis, heparin 5000 q.12. 9. Vitamin D deficiency. Continue vitamin D. CRITICAL CARE TIME: 32 minutes. JOB# [id number] NICOLAS/ALESSANDRO CALLEJAS
[2018-06-10] MEDS ORDERED: NON-FORMULARY (Furosemide [Lasix] 80 MG) PO SCH (10:00)
[2018-06-10] MEDS ORDERED: NON-FORMULARY (Cholecalciferol (Vitamin D3) [Vitamin D3] 2,000 UNIT) PO SCH (10:00)
[2018-06-10] MEDS ORDERED: NON-FORMULARY (Omeprazole [Omeprazole] 40 MG) PO SCH (10:00)
[2018-06-10] MEDS ORDERED: MAXIPIME/NS 1 GM/100 ML 1 GM/100 ML BAG IV SCH (10:00)
[2018-06-10 10:18] LABS: Basophils % (Auto) 0.4 % (0.0-1.8); Eosinophils # (Auto) 0.4 K/mm3 (0.0-0.4); Eosinophils % (Auto) 4.5 % (0.0-4.3); Hematocrit 29.1 % (35.5-45.6); Hemoglobin 9.3 gm/dl (11.8-15.2); Lymphocytes # (Auto) 0.8 K/mm3 (1.2-5.4); Lymphocytes % (Auto) 8.5 % (13.4-35.0); Mean Corpuscular HGB Conc 32 % (32-34); Mean Corpuscular Volume 99 fl (84-94); Monocytes # (Auto) 0.9 K/mm3 (0.0-0.8); Monocytes % (Auto) 9.3 % (0.0-7.3); Platelet Count 202 K/mm3 (140-440); Red Blood Count 2.94 M/mm3 (3.65-5.03); Red Cell Distribution Width 16.5 % (13.2-15.2)
[2018-06-10 10:38] LABS: Albumin 2.8 g/dL (3.9-5); Calcium 8.1 mg/dL (8.4-10.2)
--- NOTE | 2018-06-10 10:38 | Consultation ---
History of Present Illness - Reason for Consult Consult date: 06/10/18 end stage renal disease Requesting physician: LADARIUS TELLEZ - History of Present Illness Mr. Ramirez is a 68-year-old male with history of end-stage renal disease on dialysis Wednesday who presents with generalized weakness and chills. He is concerned for infection or clot in his catheter. He feels a sharp pain at the site radiating to his back. He has associated chest pain which he attributes to the catheter. According to his history, "I feel really bad.". He has such generalized weakness that he was unable to walk. Denies any focal weakness. Last month underwent AV graft placement in the right upper extremity by Dr. Leif Oliver for dialysis access. He currently receives dialysis through a tunneled catheter on the left side. 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 He receives dialysis in [place]. Timing/Duration: yesterday Fever Severity/Quality: subjective ROS: Stated complaint: WEAKNESS/CHEST PAIN Other details as noted in HPI Comment: All other systems reviewed and negative Constitutional: chills, fever, malaise Respiratory: cough - Past Medical History Previous Medical History?: Yes Hx Hypertension: Yes Hx CVA: Yes Hx Heart Attack/AMI: Yes (07/2017) Hx Congestive Heart Failure: Yes Hx GERD: Yes Hx Renal Disease: Yes Hx Arthritis: Yes (Feet, ankles) Hx Asthma: Yes (albuterol neb in [facility]) Additional medical history: cholesterol - Surgical History Past Surgical History?: Yes Additional Surgical History: Exploratory laparotomy for his pancreas, AV graft placement right upper extremity April 2018 - Social History Smoking Status: Current Every Day Smoker Substance Use Type: None Medications and Allergies Allergies Allergy/AdvReac Type Severity Reaction Status Date / Time No Known Allergies Allergy Verified 05/18/18 14:57 Home Medications Medication Instructions Recorded Confirmed Last Taken Type AtorvaSTATin [Lipitor] 40 mg PO QHS #30 tab 08/14/17 06/09/18 05/18/18 20:00 Rx Polyethylene Glycol 3350 [Miralax 17 gm PO BID #60 packet 08/14/17 06/09/18 05/18/18 20:00 Rx 3350] Allopurinol [Zyloprim] 100 mg PO QDAY 11/02/17 06/09/18 05/18/18 20:00 History Cholecalciferol (Vitamin D3) 2,000 unit PO DAILY 11/02/17 06/09/18 05/18/18 09:00 History [Vitamin D3] Furosemide [Lasix] 80 mg PO DAILY 11/02/17 06/09/18 05/18/18 20:00 History Omeprazole 40 mg PO QDAY 11/02/17 06/09/18 05/18/18 20:00 History Aspirin EC [Aspirin Enteric Coated 81 mg PO QDAY #30 tablet 11/04/17 06/09/18 05/18/18 20:00 Rx TAB] HYDROcodone/ACETAMINOPHEN 1 each PO Q6H PRN #20 tablet 05/19/18 06/09/18 Unknown Rx [Hydrocodone-Acetamin 5-325 mg] Active Meds: Active Medications Acetaminophen (Tylenol) 650 mg PO Q4H PRN PRN Reason: Pain MILD(1-3)/Fever >100.5/[place] Acetaminophen/Hydrocodone Bitart ([place] 5/325) 1 each PO Q6H PRN PRN Reason: Pain, Moderate (4-6) Allopurinol (Zyloprim) 100 mg PO QDAY [facility] Aspirin (Halfprin Ec) 81 mg PO QDAY [facility] Atorvastatin Calcium (Lipitor) 40 mg PO QHS [facility] Last Admin: 06/09/18 22:54 Dose: 40 mg Documented by: Cholecalciferol (Vitamin D3) 2,000 unit PO DAILY [facility] Furosemide (Lasix) 80 mg PO DAILY [facility] Hydromorphone HCl (Dilaudid) 0.5 mg IV Q3H PRN PRN Reason: Pain , Severe (7-10) Norepinephrine (Levophed Drip 4 Mg/Ns 250 Ml) 4 mg in 250 mls @ 7.5 mls/hr IV T ITR [facility]; Protocol Last Titration: 06/10/18 09:05 Dose: 4 mcg/min, 15 mls/hr Documented by: Cefepime HCl (Maxipime/Ns 1 Gm/100 Ml) 1 gm in 100 mls @ 200 mls/hr IV Q24H [facility]; Protocol Ondansetron HCl (Zofran) 4 mg IV Q8H PRN PRN Reason: Nausea And Vomiting Pantoprazole Sodium (Protonix) 40 mg PO DAILY [facility] Sodium Chloride (Sodium Chloride Flush Syringe 10 Ml) 10 ml IV BID [facility] Last Admin: 06/09/18 22:55 Dose: 10 ml Documented by: Sodium Chloride (Sodium Chloride Flush Syringe 10 Ml) 10 ml IV PRN PRN PRN Reason: LINE FLUSH Exam - Vital Signs Vital signs: Vital Signs Temp Pulse Resp BP Pulse Ox 100.1 F H 114 H 20 118/56 99 06/09/18 09:00 06/09/18 09:00 06/09/18 09:00 06/09/18 09:00 06/09/18 09:00 - Physical Exam Narrative exam: - General Limitations: No Limitations General appearance: alert, other (appears frail, appears ill) - Head Head exam: Present: atraumatic, normocephalic - Eye Eye exam: Present: normal appearance - ENT ENT exam: Present: mucous membranes moist - Neck Neck exam: Present: normal inspection, full ROM - Respiratory Respiratory exam: Present: normal lung sounds bilaterally. Absent: respiratory distress, wheezes, rales, rhonchi, chest wall tenderness - Cardiovascular Cardiovascular Exam: Present: normal rhythm, tachycardia, normal heart sounds, other (left chest, left neck: very dirty tunneled catheter with sediment and debris at the entry site). Absent: systolic murmur, diastolic murmur, rubs, gallop - GI/Abdominal GI/Abdominal exam: Present: soft, normal bowel sounds. Absent: distended, tenderness, guarding - Rectal Rectal exam: Present: deferred - Extremities Exam Extremities exam: Present: other (right upper extremity well-healed incisional wound) - Neurological Exam Neurological exam: Present: alert, oriented X3 - Psychiatric Psychiatric exam: Present: normal affect, normal mood - Skin Skin exam: Present: warm, dry, intact, normal color. Absent: rash Results - Lab Results 06/10/18 10:00 06/09/18 13:00 Most recent lab results Calcium 8.8 mg/dL (8.4-10.2) 06/09/18 10:32 Assessment and Plan impression * ESRD * sepsis * fever * hypotension * tachycardia * bactermia * noncompliance with dialysis * Hypertension * Anemia * Diabetes Recommendations * Continue dialysis on TTS schedule as outpatient * needs perm cath removal by vascular * would like to use av access if cleared to use by vascular * iv abx * vasopressors to keep map >65 * avoid nephrotoxins * Adjust diet and meds for ESRD state * No IV, BP or venipuncture in access arm * Procrit with dialysis * Binders with diet
--- NOTE | 2018-06-10 10:49 | Progress Note ---
<EUGENE INGRAM - Last Filed: 06/10/18 15:33> Assessment and Plan Assessment and plan: 68-year-old -[place] male with history of ESRD on HD T/Th/Sat, hyperlipidemia, and hypertension presented to the ED with complaints of generalized weakness, chest pain, chills. He was admitted on 06/09 for sepsis. He was started on levophed gtt, which was discontinued this morning. Sepsis/ bacteremia WBC on admission 12.2; this a.m. 9.7 MAXIMUM TEMPERATURE 103.1 Positive blood culture 2- gram-positive cocci Staphylococcus aureus Currently on cefepime Start on renal dose of vancomycin Suspicion of Vascath site as source of infection ID consult pending ESRD on HD Currently on HD: Wednesday AV graft performed by Dr. Leif Oliver a month ago Vascular consult with Dr. Oliver pending Nephrology consult pending Hypotension- resolved Levophed gtt discontinued this am Hx Hypertension- Start Norvasc 10mg Continue to monitor BP Chronic anemia Hyperlipidemia Vitamin D deficiency History Interval history: 68-year-old -[place] male with history of ESRD on HD T/Th/Sat, hyperlipidemia, and hypertension presented to the ED with complaints of generalized weakness, chest pain, chills. Admitted on 06/09 for sepsis. Levophed gtt was discontinued this morning. Hospitalist Physical - Constitutional Vitals: Temp Pulse Resp BP Pulse Ox 99.1 F 131 H 25 H 153/65 99 06/10/18 00:25 06/10/18 10:15 06/10/18 10:15 06/10/18 10:15 06/10/18 10:15 General appearance: Present: no acute distress - EENT Eyes: Present: PERRL, EOM intact ENT: hearing intact - Neck Neck: Present: normal ROM - Respiratory Respiratory effort: normal Respiratory: bilateral: diminished (bases) - Cardiovascular Rhythm: regular Heart Sounds: Present: S1 & S2 - Extremities Extremities: pulses intact, No edema Peripheral Pulses: within normal limits - Abdominal General gastrointestinal: soft, non-tender - Integumentary Integumentary: Present: warm, dry - Psychiatric Psychiatric: cooperative - Neurologic Neurologic: CNII-XII intact Results - Labs CBC & Chem 7: 06/10/18 10:00 06/10/18 11:27 Labs: Laboratory Last Values WBC 9.7 K/mm3 (4.5-11.0) 06/10/18 10:00 RBC 2.94 M/mm3 (3.65-5.03) L 06/10/18 10:00 Hgb 9.3 gm/dl (11.8-15.2) L 06/10/18 10:00 Hct 29.1 % (35.5-45.6) L 06/10/18 10:00 MCV 99 fl (84-94) H 06/10/18 10:00 MCH 32 pg (28-32) 06/10/18 10:00 MCHC 32 % (32-34) 06/10/18 10:00 RDW 16.5 % (13.2-15.2) H 06/10/18 10:00 Plt Count 202 K/mm3 (140-440) 06/10/18 10:00 Lymph % (Auto) 8.5 % (13.4-35.0) L 06/10/18 10:00 [place] % (Auto) 9.3 % (0.0-7.3) H 06/10/18 10:00 Eos % (Auto) 4.5 % (0.0-4.3) H 06/10/18 10:00 Baso % (Auto) 0.4 % (0.0-1.8) 06/10/18 10:00 Lymph # 0.8 K/mm3 (1.2-5.4) L 06/10/18 10:00 [place] # 0.9 K/mm3 (0.0-0.8) H 06/10/18 10:00 Eos # 0.4 K/mm3 (0.0-0.4) 06/10/18 10:00 Baso # 0.0 K/mm3 (0.0-0.1) 06/10/18 10:00 Seg Neutrophils % 77.3 % (40.0-70.0) H 06/10/18 10:00 Seg Neutrophils # 7.5 K/mm3 (1.8-7.7) 06/10/18 10:00 Sodium 136 mmol/L (137-145) L 06/10/18 10:00 Potassium 4.9 mmol/L (3.6-5.0) 06/10/18 10:00 Chloride 102.8 mmol/L (98-107) 06/10/18 10:00 Carbon Dioxide 18 mmol/L (22-30) L 06/10/18 10:00 Anion Gap 20 mmol/L 06/10/18 10:00 BUN 58 mg/dL (9-20) H 06/10/18 10:00 Creatinine 12.1 mg/dL (0.8-1.5) H 06/10/18 10:00 Estimated GFR 5 ml/min 06/10/18 10:00 BUN/Creatinine Ratio 5 % 06/10/18 10:00 Glucose 115 mg/dL (75-100) H 06/10/18 10:00 Hemoglobin A1c 5.0 % (4-6) 06/09/18 22:50 Lactic Acid 1.20 mmol/L (0.7-2.0) 06/09/18 13:00 Calcium 8.1 mg/dL (8.4-10.2) L 06/10/18 10:00 Total Bilirubin 0.30 mg/dL (0.1-1.2) 06/10/18 10:00 AST 34 units/L (5-40) 06/10/18 10:00 ALT 16 units/L (7-56) 06/10/18 10:00 Alkaline Phosphatase 58 units/L (35-129) 06/10/18 10:00 Troponin T 0.063 ng/mL (0.00-0.029) H 06/09/18 09:05 Total Protein 6.6 g/dL (6.3-8.2) 06/10/18 10:00 Albumin 2.8 g/dL (3.9-5) L 06/10/18 10:00 Albumin/Globulin Ratio 0.7 % 06/10/18 10:00 Triglycerides 120 mg/dL (2-149) 06/09/18 09:05 Cholesterol 152 mg/dL (50-199) 06/09/18 09:05 LDL Cholesterol Direct 92 mg/dL (50-130) 06/09/18 09:05 HDL Cholesterol 47 mg/dL (40-59) 06/09/18 09:05 Cholesterol/HDL Ratio 3.23 % 06/09/18 09:05 Active Medications - Current Medications Current Medications: Generic Name Dose Route Start Last Admin Trade Name Freq PRN Reason Stop Dose Admin Acetaminophen 650 mg 06/09/18 21:33 Tylenol PO Q4H PRN Pain MILD(1-3)/Fever >100.5/[place] Acetaminophen/Hydrocodone Bitart 1 each 06/09/18 21:32 [place] 5/325 PO Q6H PRN Pain, Moderate (4-6) Allopurinol 100 mg 06/10/18 10:00 Zyloprim PO QDAY [facility] Aspirin 81 mg 06/10/18 10:00 Halfprin Ec PO QDAY [facility] Atorvastatin Calcium 40 mg 06/09/18 22:00 06/09/18 22:54 Lipitor PO 40 mg QHS ZENAIDA Administration Cholecalciferol 2,000 unit 06/10/18 10:00 Vitamin D3 PO DAILY ZENAIDA Furosemide 80 mg 06/10/18 10:00 Lasix PO DAILY [facility] Hydromorphone HCl 0.5 mg 06/09/18 21:33 Dilaudid IV Q3H PRN Pain , Severe (7-10) Norepinephrine 4 mg in 250 mls @ 7.5 mls/hr 06/09/18 17:00 06/10/18 09:05 Levophed Drip 4 Mg/Ns 250 Ml IV 4 mcg/min TITR ZENAIDA 15 mls/hr Titration Protocol 2 MCG/MIN Cefepime HCl 1 gm in 100 mls @ 200 mls/hr 06/10/18 10:00 Maxipime/Ns 1 Gm/100 Ml IV Q24H [facility] Protocol Ondansetron HCl 4 mg 06/09/18 21:33 Zofran IV Q8H PRN Nausea And Vomiting Pantoprazole Sodium 40 mg 06/10/18 10:00 Protonix PO DAILY ZENAIDA Sodium Chloride 10 ml 06/09/18 22:00 06/09/18 22:55 Sodium Chloride Flush Syringe 10 Ml IV 10 ml BID ZENAIDA Administration Sodium Chloride 10 ml 06/09/18 21:33 Sodium Chloride Flush Syringe 10 Ml IV PRN PRN LINE FLUSH <SHABANA TOLEDO M - Last Filed: 06/15/18 14:43> Assessment and Plan Assessment and plan: I saw and evaluated the patient. I agree with the findings and the plan of care as documented in the Nurse Practitioner's~note Hospitalist Physical - Constitutional Vitals: Temp Pulse Resp BP Pulse Ox 98.5 F 76 18 109/64 97 06/13/18 13:33 06/13/18 13:33 06/13/18 13:33 06/13/18 13:33 06/13/18 13:33 Results - Labs CBC & Chem 7: 06/13/18 05:10 06/13/18 05:10 Labs: Laboratory Last Values WBC 6.9 K/mm3 (4.5-11.0) 06/13/18 05:10 RBC 2.67 M/mm3 (3.65-5.03) L 06/13/18 05:10 Hgb 8.3 gm/dl (11.8-15.2) L 06/13/18 05:10 Hct 25.9 % (35.5-45.6) L 06/13/18 05:10 MCV 97 fl (84-94) H 06/13/18 05:10 MCH 31 pg (28-32) 06/13/18 05:10 MCHC 32 % (32-34) 06/13/18 05:10 RDW 16.8 % (13.2-15.2) H 06/13/18 05:10 Plt Count 225 K/mm3 (140-440) 06/13/18 05:10 Lymph % (Auto) [employer] Coverer Helper 06/13/18 05:10 [place] % (Auto) [employer] Cove[employer] Helper 06/13/18 05:10 Eos % (Auto) [employer] Coverer Helper 06/13/18 05:10 Baso % (Auto) [employer] Cove[employer] Helper 06/13/18 05:10 Lymph # [employer] Coverer Helper 06/13/18 05:10 [place] # Boiler Coverer Helper 06/13/18 05:10 Eos # Boiler Coverer Helper 06/13/18 05:10 Baso # Boiler Coverer Helper 06/13/18 05:10 Add Manual Diff Complete 06/13/18 05:10 Total Counted 100 06/13/18 05:10 Seg Neutrophils % [employer]iler Coverer Helper 06/13/18 05:10 Seg Neuts % (Manual) 51.0 % (40.0-70.0) 06/13/18 05:10 Band Neutrophils % 0 % 06/13/18 05:10 Lymphocytes % (Manual) 16.0 % (13.4-35.0) 06/13/18 05:10 Reactive Lymphs % (Man) 0 % 06/13/18 05:10 Monocytes % (Manual) 8.0 % (0.0-7.3) H 06/13/18 05:10 Eosinophils % (Manual) 25.0 % (0.0-4.3) H 06/13/18 05:10 Basophils % (Manual) 0 % (0.0-1.8) 06/13/18 05:10 Metamyelocytes % 0 % 06/13/18 05:10 Myelocytes % 0 % 06/13/18 05:10 Promyelocytes % 0 % 06/13/18 05:10 Blast Cells % 0 % 06/13/18 05:10 Nucleated RBC % Not Reportable 06/13/18 05:10 Seg Neutrophils # Boiler Coverer Helper 06/13/18 05:10 Seg Neutrophils # Man 3.5 K/mm3 (1.8-7.7) 06/13/18 05:10 Band Neutrophils # 0.0 K/mm3 06/13/18 05:10 Lymphocytes # (Manual) 1.1 K/mm3 (1.2-5.4) L 06/13/18 05:10 Abs React Lymphs (Man) 0.0 K/mm3 06/13/18 05:10 Monocytes # (Manual) 0.6 K/mm3 (0.0-0.8) 06/13/18 05:10 Eosinophils # (Manual) 1.7 K/mm3 (0.0-0.4) H 06/13/18 05:10 Basophils # (Manual) 0.0 K/mm3 (0.0-0.1) 06/13/18 05:10 Metamyelocytes # 0.0 K/mm3 06/13/18 05:10 Myelocytes # 0.0 K/mm3 06/13/18 05:10 Promyelocytes # 0.0 K/mm3 06/13/18 05:10 Blast Cells # 0.0 K/mm3 06/13/18 05:10 WBC Morphology Not Reportable 06/13/18 05:10 Hypersegmented Neuts Not Reportable 06/13/18 05:10 Hyposegmented Neuts Not Reportable 06/13/18 05:10 Hypogranular Neuts Not Reportable 06/13/18 05:10 Smudge Cells Not Reportable 06/13/18 05:10 Toxic Granulation Not Reportable 06/13/18 05:10 Toxic Vacuolation Not Reportable 06/13/18 05:10 Dohle Bodies Not Reportable 06/13/18 05:10 Pelger-Huet Anomaly Not Reportable 06/13/18 05:10 [place] Rods Not Reportable 06/13/18 05:10 Platelet Estimate Consistent w auto 06/13/18 05:10 Clumped Platelets Not Reportable 06/13/18 05:10 Plt Clumps, EDTA Not Reportable 06/13/18 05:10 Large Platelets 1+ 06/13/18 05:10 Giant Platelets Not Reportable 06/13/18 05:10 Platelet Satelliting Not Reportable 06/13/18 05:10 Plt Morphology Comment Not Reportable 06/13/18 05:10 RBC Morphology Not Reportable 06/13/18 05:10 Dimorphic RBCs Not Reportable 06/13/18 05:10 Polychromasia Not Reportable 06/13/18 05:10 Hypochromasia Not Reportable 06/13/18 05:10 Poikilocytosis Not Reportable 06/13/18 05:10 Anisocytosis 1+ 06/13/18 05:10 Microcytosis Not Reportable 06/13/18 05:10 Macrocytosis Not Reportable 06/13/18 05:10 Spherocytes Not Reportable 06/13/18 05:10 Pappenheimer Bodies Not Reportable 06/13/18 05:10 Sickle Cells Not Reportable 06/13/18 05:10 Target Cells Not Reportable 06/13/18 05:10 Tear Drop Cells Not Reportable 06/13/18 05:10 Ovalocytes 1+ 06/13/18 05:10 Helmet Cells Not Reportable 06/13/18 05:10 [place] Bodies Not Reportable 06/13/18 05:10 [place] Rings Not Reportable 06/13/18 05:10 Jose R Cells Not Reportable 06/13/18 05:10 Bite Cells Not Reportable 06/13/18 05:10 Crenated Cell Not Reportable 06/13/18 05:10 Elliptocytes Not Reportable 06/13/18 05:10 Acanthocytes (Spur) Not Reportable 06/13/18 05:10 Rouleaux Not Reportable 06/13/18 05:10 Hemoglobin C Crystals Not Reportable 06/13/18 05:10 Schistocytes Not Reportable 06/13/18 05:10 Malaria parasites Not Reportable 06/13/18 05:10 Willie Bodies Not Reportable 06/13/18 05:10 Hem Pathologist Commnt No 06/13/18 05:10 Sodium 140 mmol/L (137-145) 06/13/18 05:10 Potassium 5.1 mmol/L (3.6-5.0) H 06/13/18 05:10 Chloride 104.9 mmol/L (98-107) 06/13/18 05:10 Carbon Dioxide 19 mmol/L (22-30) L 06/13/18 05:10 Anion Gap 21 mmol/L 06/13/18 05:10 BUN 78 mg/dL (9-20) H 06/13/18 05:10 Creatinine 14.1 mg/dL (0.8-1.5) H 06/13/18 05:10 Estimated GFR 4 ml/min 06/13/18 05:10 BUN/Creatinine Ratio 6 % 06/13/18 05:10 Glucose 85 mg/dL (75-100) 06/13/18 05:10 Hemoglobin A1c 5.0 % (4-6) 06/09/18 22:50 Lactic Acid 1.20 mmol/L (0.7-2.0) 06/09/18 13:00 Calcium 8.1 mg/dL (8.4-10.2) L 06/13/18 05:10 Total Bilirubin 0.30 mg/dL (0.1-1.2) 06/10/18 10:00 AST 34 units/L (5-40) 06/10/18 10:00 ALT 16 units/L (7-56) 06/10/18 10:00 Alkaline Phosphatase 58 units/L (35-129) 06/10/18 10:00 Troponin T 0.063 ng/mL (0.00-0.029) H 06/09/18 09:05 Total Protein 6.6 g/dL (6.3-8.2) 06/10/18 10:00 Albumin 2.8 g/dL (3.9-5) L 06/10/18 10:00 Albumin/Globulin Ratio 0.7 % 06/10/18 10:00 Triglycerides 120 mg/dL (2-149) 06/09/18 09:05 Cholesterol 152 mg/dL (50-199) 06/09/18 09:05 LDL Cholesterol Direct 92 mg/dL (50-130) 06/09/18 09:05 HDL Cholesterol 47 mg/dL (40-59) 06/09/18 09:05 Cholesterol/HDL Ratio 3.23 % 06/09/18 09:05 Random Vancomycin 11.2 ug/mL (0-40.0) 06/11/18 06:12
[2018-06-10] MEDS ORDERED: XYLOCAINE 1% 20 mL ONE (10:53)
[2018-06-10] MEDS ORDERED: XYLOCAINE 1% 20 mL INFILTRATI ONE (11:03)
--- NOTE | 2018-06-10 11:20 | Consultation ---
History of Present Illness - Reason for Consult Consult date: 06/10/18 Bacteremia, sepsis, ESRD Requesting physician: LADARIUS TELLEZ - History of Present Illness The patient is a 68-year-old male with ESRD on hemodialysis, hypertension, gout, hyperlipidemia who presented to the emergency room yesterday with complaints of chest pain and fever. The patient is status post creation of a right arm AV graft using bovine carotid artery on 05/19/[address] Oliver from vascular surgery but currently receives dialysis through an HD catheter. Patient had blood cultures done on admission which turned positive for staph aureus. Infectious diseases was consulted for additional recommendations. Vascular surgery has also been consulted for possible Vas-Cath removal. Review of Systems: General: + for fevers,chills or rigors HEENT: no new visual disturbance Respiratory: No cough, sputum, hemoptysis or shortness of breath Cardiovascular: No chest pain, syncope Gastrointestinal: No nausea, vomiting or diarrhea Genitourinary: No dysuria or hematuria Musculoskeletal: No new or worsening neck pain or back pain Neurologic: No headaches, seizures Hematologic: No easy bruising or bleeding Endocrine: No night sweats or acute weight loss Skin: negative for rash, jaundice Psychiatric: No suicidal or homicidal ideation Medications and Allergies Allergies Allergy/AdvReac Type Severity Reaction Status Date / Time No Known Allergies Allergy Verified 05/18/18 14:57 Home Medications Medication Instructions Recorded Confirmed Last Taken Type AtorvaSTATin [Lipitor] 40 mg PO QHS #30 tab 08/14/17 06/09/18 05/18/18 20:00 Rx Polyethylene Glycol 3350 [Miralax 17 gm PO BID #60 packet 08/14/17 06/09/18 05/18/18 20:00 Rx 3350] Allopurinol [Zyloprim] 100 mg PO QDAY 11/02/17 06/09/18 05/18/18 20:00 History Cholecalciferol (Vitamin D3) 2,000 unit PO DAILY 11/02/17 06/09/18 05/18/18 09:00 History [Vitamin D3] Furosemide [Lasix] 80 mg PO DAILY 11/02/17 06/09/18 05/18/18 20:00 History Omeprazole 40 mg PO QDAY 11/02/17 06/09/18 05/18/18 20:00 History Aspirin EC [Aspirin Enteric Coated 81 mg PO QDAY #30 tablet 11/04/17 06/09/18 05/18/18 20:00 Rx TAB] HYDROcodone/ACETAMINOPHEN 1 each PO Q6H PRN #20 tablet 05/19/18 06/09/18 Unknown Rx [Hydrocodone-Acetamin 5-325 mg] Active Meds: Active Medications Acetaminophen (Tylenol) 650 mg PO Q4H PRN PRN Reason: Pain MILD(1-3)/Fever >100.5/[place] Acetaminophen/Hydrocodone Bitart ([place] 5/325) 1 each PO Q6H PRN PRN Reason: Pain, Moderate (4-6) Allopurinol (Zyloprim) 100 mg PO QDAY ZENAIDA Aspirin (Halfprin Ec) 81 mg PO QDAY ZENAIDA Atorvastatin Calcium (Lipitor) 40 mg PO QHS [facility] Last Admin: 06/09/18 22:54 Dose: 40 mg Documented by: Cholecalciferol (Vitamin D3) 2,000 unit PO DAILY [facility] Furosemide (Lasix) 80 mg PO DAILY [facility] Hydromorphone HCl (Dilaudid) 0.5 mg IV Q3H PRN PRN Reason: Pain , Severe (7-10) Norepinephrine (Levophed Drip 4 Mg/Ns 250 Ml) 4 mg in 250 mls @ 7.5 mls/hr IV TITR ZENAIDA; Protocol Last Titration: 06/10/18 09:05 Dose: 4 mcg/min, 15 mls/hr Documented by: Ondansetron HCl (Zofran) 4 mg IV Q8H PRN PRN Reason: Nausea And Vomiting Pantoprazole Sodium (Protonix) 40 mg PO DAILY [facility] Sodium Chloride (Sodium Chloride Flush Syringe 10 Ml) 10 ml IV BID [facility] Last Admin: 06/09/18 22:55 Dose: 10 ml Documented by: Sodium Chloride (Sodium Chloride Flush Syringe 10 Ml) 10 ml IV PRN PRN PRN Reason: LINE FLUSH Physical Examination - Physical Exam Narrative exam: Physical Exam: Constitutional: Alert, cooperative. No acute distress Head, Ears, Nose: Normocephalic, atraumatic. External ears, nose normal Eyes: Conjunctivae/corneas clear. No icterus. No ptosis. Neck: Supple, no meningeal signs Oral: dentition fair, no thrush Cardiovascular: S1, S2 normal. Respiratory: Good air entry, clear to auscultation bilaterally GI: Soft, non-tender; bowel sounds normal. No peritoneal signs Musculoskeletal: No pedal edema, no cyanosis. Right arm AVG and left subclavian HD cath + Skin: No rash or abscess Hem/Lymphatic: No palpable cervical or supraclavicular nodes. No lymphangitis Psych: Mood ok. Affect normal Neurological: Awake, alert, oriented. No gross abnormality - Constitutional Vitals: Vital Signs Temp Pulse Resp BP Pulse Ox 99.1 F 131 H 25 H 153/65 99 06/10/18 00:25 06/10/18 10:15 06/10/18 10:15 06/10/18 10:15 06/10/18 10:15 Temperature -Last 24 Hours Temperature 99.1 F Temperature 100.3 F Temperature 101.3 F Results - Labs CBC & Chem 7: 06/10/18 10:00 06/10/18 10:00 Labs: Abnormal lab results 06/09/18 06/10/18 06/10/18 Range/Units 10:32 10:00 10:00 RBC 2.94 L (3.65-5.03) M/mm3 Hgb 9.3 L (11.8-15.2) gm/dl Hct 29.1 L (35.5-45.6) % MCV 99 H (84-94) fl RDW 16.5 H (13.2-15.2) % Lymph % (Auto) 8.5 L (13.4-35.0) % [place] % (Auto) 9.3 H (0.0-7.3) % Eos % (Auto) 4.5 H (0.0-4.3) % Lymph # 0.8 L (1.2-5.4) K/mm3 [place] # 0.9 H (0.0-0.8) K/mm3 Seg Neutrophils % 77.3 H (40.0-70.0) % Sodium 136 L (137-145) mmol/L Carbon Dioxide 15 L 18 L (22-30) mmol/L BUN 45 H 58 H (9-20) mg/dL Creatinine 10.9 H 12.1 H (0.8-1.5) mg/dL Glucose 65 L 115 H (75-100) mg/dL Calcium 8.1 L (8.4-10.2) mg/dL Albumin 3.7 L 2.8 L (3.9-5) g/dL - Imaging and Cardiology Chest x-ray: report reviewed, image reviewed (no pneumonia seen. Left subclavian HD cath +) Assessment and Plan Cultures: 06/09/2018 blood culture: 2 sets positive for staph aureus, ID pending A/P: 68-year-old male with ESRD on hemodialysis, hypertension, gout, hyperlipidemia admitted with: 1) Sepsis secondary to staph aureus bacteremia: Source likely infected HD catheter 2) ESRD on hemodialysis: He does antibiotics. Nephrology following. patient is status post creation of a right arm AV graft using bovine carotid artery on 05/19/[address] Oliver. 3) Chronic anemia Recs: discontinued Cefepime continue IV Vancomycin, post HD renally adjusted repeat blood cultures ordered to ensure clearance TTE ordered awaiting vascular surgery eval, will need removal of HD catheter MD [facility] C: [phone] O: [phone] F: [phone]
[2018-06-10] MEDS ORDERED: LASIX ONE (11:26)
[2018-06-10] MEDS ORDERED: PROTONIX PO ONE (11:26)
[2018-06-10] MEDS: PROTONIX PO SCH (11:32)
[2018-06-10] MEDS: SODIUM CHLORIDE FLUSH SYRINGE 10 ML IV SCH ×2 (11:32→22:25)
[2018-06-10] MEDS: LASIX PO SCH (11:32)
[2018-06-10 12:06] LABS: Calcium 8.4 mg/dL (8.4-10.2)
[2018-06-10] MEDS: NORVASC PO SCH (12:48)
[2018-06-10] MEDS: HALFPRIN EC PO SCH (12:48)
[2018-06-10] MEDS: VITAMIN D3 PO SCH (12:48)
[2018-06-10] MEDS: ZYLOPRIM PO SCH (12:48)
--- NOTE | 2018-06-10 14:43 | Consultation ---
History of Present Illness - Reason for Consult Consult date: 06/10/18 Suspected infected [facility] - History of Present Illness (Pt evaluated in the ER early this am) This pt is a 68yo AAM that has been admitted via the ER on 06/09/18 due to sepsis with S. Aureus bacteremia. Pt is hypotensive on Levophed in the ER. The pt has a [facility] PC which he has been using for HD. He is s/p a RUE Bovine AVG placement ~3weeks ago. He has not used the Graft for HD thus far. A vascular surgery consult is requested to further evaluate. Pt c/o tunnel tract discomfort, with fever and chills yesterday. Past History Past Medical History: arthritis, CAD (s/p NH), diabetes, dialysis, ESRD, GERD, heart failure, hypertension, hyperlipidemia, stroke Past Surgical History: Other (Multiple Permacath placements, RUE AVG (Bovine) 04/2018, Exp Lap for Pancrease) Social history: smoking Family history: no significant family history (none listed.) Medications and Allergies Allergies Allergy/AdvReac Type Severity Reaction Status Date / Time No Known Allergies Allergy Verified 05/18/18 14:57 Home Medications Medication Instructions Recorded Confirmed Last Taken Type AtorvaSTATin [Lipitor] 40 mg PO QHS #30 tab 08/14/17 06/09/18 05/18/18 20:00 Rx Polyethylene Glycol 3350 [Miralax 17 gm PO BID #60 packet 08/14/17 06/09/18 05/18/18 20:00 Rx 3350] Allopurinol [Zyloprim] 100 mg PO QDAY 11/02/17 06/09/18 05/18/18 20:00 History Cholecalciferol (Vitamin D3) 2,000 unit PO DAILY 11/02/17 06/09/18 05/18/18 09:00 History [Vitamin D3] Furosemide [Lasix] 80 mg PO DAILY 11/02/17 06/09/18 05/18/18 20:00 History Omeprazole 40 mg PO QDAY 11/02/17 06/09/18 05/18/18 20:00 History Aspirin EC [Aspirin Enteric Coated 81 mg PO QDAY #30 tablet 11/04/17 06/09/18 05/18/18 20:00 Rx TAB] HYDROcodone/ACETAMINOPHEN 1 each PO Q6H PRN #20 tablet 05/19/18 06/09/18 Unknown Rx [Hydrocodone-Acetamin 5-325 mg] Active Meds: Active Medications Acetaminophen (Tylenol) 650 mg PO Q4H PRN PRN Reason: Pain MILD(1-3)/Fever >100.5/[place] Acetaminophen/Hydrocodone Bitart ([place] 5/325) 1 each PO Q6H PRN PRN Reason: Pain, Moderate (4-6) Allopurinol (Zyloprim) 100 mg PO QDAY [facility] Last Admin: 06/10/18 12:48 Dose: 100 mg Documented by: Amlodipine Besylate (Norvasc) 10 mg PO QDAY [facility] Last Admin: 06/10/18 12:48 Dose: 10 mg Documented by: Aspirin (Halfprin Ec) 81 mg PO QDAY [facility] Last Admin: 06/10/18 12:48 Dose: 81 mg Documented by: Atorvastatin Calcium (Lipitor) 40 mg PO QHS [facility] Last Admin: 06/09/18 22:54 Dose: 40 mg Documented by: Cholecalciferol (Vitamin D3) 2,000 unit PO DAILY [facility] Last Admin: 06/10/18 12:48 Dose: 2,000 unit Documented by: Furosemide (Lasix) 80 mg PO DAILY [facility] Last Admin: 06/10/18 11:32 Dose: 80 mg Documented by: Hydromorphone HCl (Dilaudid) 0.5 mg IV Q3H PRN PRN Reason: Pain , Severe (7-10) Ondansetron HCl (Zofran) 4 mg IV Q8H PRN PRN Reason: Nausea And Vomiting Pantoprazole Sodium (Protonix) 40 mg PO DAILY [facility] Last Admin: 06/10/18 11:32 Dose: 40 mg Documented by: Polyethylene Glycol (Miralax 3350) 17 gm PO BID [facility] Sodium Chloride (Sodium Chloride Flush Syringe 10 Ml) 10 ml IV BID [facility] Last Admin: 06/10/18 11:32 Dose: 10 ml Documented by: Sodium Chloride (Sodium Chloride Flush Syringe 10 Ml) 10 ml IV PRN PRN PRN Reason: LINE FLUSH Review of Systems All systems: negative Exam - Constitutional Vitals: Temp Pulse Resp BP Pulse Ox 98.6 F 92 H 21 153/63 94 06/10/18 12:00 06/10/18 13:00 06/10/18 13:00 06/10/18 12:48 06/10/18 13:00 General appearance: Present: no acute distress - EENT Eyes: Present: EOM intact ENT: hearing intact - Neck Neck: Present: supple ([facility] PC in place with Nylon suture at the exit site and catheter suture wings, Dried blood at the exit site surrounding the catheter. Tract site tender to manipulation.) - Extremities Extremities: no ischemia, abnormal (RUE upper arm avg with a palpable thrill.) - Psychiatric Psychiatric: appropriate mood/affect, intact judgment & insight, cooperative - Neurologic Neurologic: no focal deficits Results - Labs CBC & Chem 7: 06/10/18 10:00 06/10/18 11:27 Labs: Abnormal lab results 06/10/18 06/10/18 06/10/18 Range/Units 10:00 10:00 11:27 RBC 2.94 L (3.65-5.03) M/mm3 Hgb 9.3 L (11.8-15.2) gm/dl Hct 29.1 L (35.5-45.6) % MCV 99 H (84-94) fl RDW 16.5 H (13.2-15.2) % Lymph % (Auto) 8.5 L (13.4-35.0) % [place] % (Auto) 9.3 H (0.0-7.3) % Eos % (Auto) 4.5 H (0.0-4.3) % Lymph # 0.8 L (1.2-5.4) K/mm3 [place] # 0.9 H (0.0-0.8) K/mm3 Seg Neutrophils % 77.3 H (40.0-70.0) % Sodium 136 L (137-145) mmol/L Potassium 5.2 H (3.6-5.0) mmol/L Carbon Dioxide 18 L 18 L (22-30) mmol/L BUN 58 H 59 H (9-20) mg/dL Creatinine 12.1 H 12.1 H (0.8-1.5) mg/dL Glucose 115 H (75-100) mg/dL Calcium 8.1 L (8.4-10.2) mg/dL Albumin 2.8 L (3.9-5) g/dL Assessment and Plan Pt admitted with sepsis and Staph Aureus bacteremia. He is hypotensive requiring Levophed support. It is suspected that his catheter is infected. A vascular surgery consult was requested to evaluate for PC removal. I agree with catheter removal. Discussed with the pt who stated understanding and agreed. This will be performed urgently at the bedside in the ER.
--- NOTE | 2018-06-10 15:17 | Post Operative Note ---
Date of procedure: 06/10/18 Pre-op diagnosis: Infected LIJ PC Post-op diagnosis: same Findings: LIJ PC successfully removed. Cuff and tip were intact. Procedure: Removal of infected LIJ Perma-cath Anesthesia: local Surgeon: JANNETTE MOLINA (Xiang Mclaughlin MD) Estimated blood loss: minimal Pathology: list (Tip sent for culture) Specimen disposition: to lab Condition: stable Disposition: no change (Procedure: Pt's head was tilted to the right. His left neck and chest were prepped with betadine. The exit tract was injected with 1% lidocaine. The sutures were ligated and removed. Blunt disection and gentle retraction were used to free the cuff. The catheter was not well incorporated, and was removed easily. Once removed, gentle pressure was applied over his L clavicle at the venous access site. Pressure was maintained for ~10min. No bleeding was noted following the procedure. Sterile bandages were applied. The pt tolerated the procedure well. D/c instructions were given to the pt following the procedure (including topics such as bandage removal, and what to do if he should start bleeding from the exit site).)
[2018-06-10] MEDS ORDERED: APRESOLINE IV PRN (15:29)
[2018-06-10] MEDS: MIRALAX 3350 PO SCH (22:25)
[2018-06-11 06:41] LABS: Basophils % (Auto) 0.3 % (0.0-1.8); Eosinophils % (Auto) 13.6 % (0.0-4.3); Hematocrit 27.7 % (35.5-45.6); Hemoglobin 8.7 gm/dl (11.8-15.2); Lymphocytes % (Auto) 13.5 % (13.4-35.0); Mean Corpuscular HGB Conc 32 % (32-34); Mean Corpuscular Volume 99 fl (84-94); Monocytes % (Auto) 13.2 % (0.0-7.3); Platelet Count 181 K/mm3 (140-440); Red Blood Count 2.81 M/mm3 (3.65-5.03)
[2018-06-11 07:06] LABS: Calcium 8.4 mg/dL (8.4-10.2)
[2018-06-11] MEDS: LASIX PO SCH (10:37)
[2018-06-11] MEDS: PROTONIX PO SCH (10:37)
[2018-06-11] MEDS: ZYLOPRIM PO SCH (10:37)
[2018-06-11] MEDS: VITAMIN D3 PO SCH (10:37)
[2018-06-11] MEDS: NORVASC PO SCH (10:38)
[2018-06-11] MEDS: HALFPRIN EC PO SCH (10:38)
[2018-06-11] MEDS: SODIUM CHLORIDE FLUSH SYRINGE 10 ML IV SCH ×2 (10:38→22:03)
[2018-06-11] MEDS ORDERED: PROAMATINE PO NR (10:38)
[2018-06-11] MEDS: MIRALAX 3350 PO SCH (10:38)
--- NOTE | 2018-06-11 10:38 | Progress Note ---
Subjective Interval history: Patient was seen today for follow-up on multiple renal related issues Events of this hospitalization noted Patient denies having any chest pain pressure or shortness of breath Vitals labs intake output medications were reviewed Social history: Reviewed Allergies: Reviewed Family history: Reviewed Physical examination HEENT: Oral mucosa moist no pallor or icterus Neck: Supple no JVD Chest: Clear to auscultation anteriorly CVS: Regular rate and rhythm S1 and S2 heard Abdomen: Soft nontender no suprapubic masses no organomegaly appreciable Extremity: Dry skin less than 1+ peripheral edema Musculoskeletal: No joint effusion noted in knees and ankle Neurological: Alert awake Dermatology: No petechial rashes Psychiatry: No evidence of any agitation and aggression noted Assessment and plan End-stage renal disease: Patient is currently on hemodialysis, and will need to continue with hemodialysis on Wednesday schedule If possible would like to use AV graft, check with vascular surgery tomorrow Anemia and end-stage renal disease: Periodically on erythropoietin Secondary hyperparathyroidism: Check phosphorus and PTH level periodically, binders as needed Dialysis access: Currently working well, permacath removed as a Malnutrition risk: High consider high-protein diet dietitian evaluation and follow-up in general 1.5 g protein per KG body weight Fluid restriction: 1200 cc per day not to exceed more than that Adequately counseled and educated about other hospital related issues as well Labs were discussed with patient and simple Portuguese Patient does appear to have good understanding of all the dialysis related issues We'll continue to follow and make recommendation from renal standpoint Objective - Vital Signs Vital signs: Vital Signs - 12hr 06/10/18 06/10/18 06/10/18 22:41 22:51 23:00 Temperature Pulse Rate 86 84 84 Pulse Rate [ Apical] Respiratory 19 20 17 Rate Blood Pressure 117/54 117/54 126/53 O2 Sat by Pulse 100 98 96 Oximetry 06/10/18 06/10/18 06/10/18 23:11 23:27 23:30 Temperature Pulse Rate 86 86 88 Pulse Rate [ Apical] Respiratory 17 13 16 Rate Blood Pressure 126/53 O2 Sat by Pulse 95 97 97 Oximetry 06/10/18 06/10/18 06/10/18 23:40 23:50 23:56 Temperature Pulse Rate 86 87 86 Pulse Rate [ Apical] Respiratory 14 18 19 Rate Blood Pressure 126/53 126/53 126/53 O2 Sat by Pulse 97 99 96 Oximetry 06/11/18 06/11/18 06/11/18 00:00 00:04 00:10 Temperature 98.3 F Pulse Rate 87 88 88 Pulse Rate [ 85 Apical] Respiratory 18 14 16 Rate Blood Pressure 104/50 104/50 104/50 O2 Sat by Pulse 96 99 98 Oximetry 06/11/18 06/11/18 06/11/18 00:20 00:30 00:40 Temperature Pulse Rate 87 85 76 Pulse Rate [ Apical] Respiratory 17 12 18 Rate Blood Pressure 104/50 104/50 104/50 O2 Sat by Pulse 98 94 98 Oximetry 06/11/18 06/11/18 06/11/18 00:50 01:00 01:10 Temperature Pulse Rate 87 Pulse Rate [ Apical] Respiratory 18 12 12 Rate Blood Pressure 104/50 104/52 104/52 O2 Sat by Pulse 96 99 97 Oximetry 06/11/18 06/11/18 06/11/18 01:20 01:30 01:40 Temperature Pulse Rate 94 H 95 H 89 Pulse Rate [ Apical] Respiratory 15 24 18 Rate Blood Pressure 104/52 104/52 104/52 O2 Sat by Pulse 100 99 98 Oximetry 06/11/18 06/11/18 06/11/18 01:50 02:00 02:10 Temperature Pulse Rate 87 88 94 H Pulse Rate [ Apical] Respiratory 20 14 12 Rate Blood Pressure 104/52 104/52 140/80 O2 Sat by Pulse 100 96 Oximetry 06/11/18 06/11/18 06/11/18 02:20 02:30 02:40 Temperature Pulse Rate 88 90 82 Pulse Rate [ Apical] Respiratory 18 18 12 Rate Blood Pressure 140/80 140/80 140/80 O2 Sat by Pulse 98 99 96 Oximetry 06/11/18 06/11/18 06/11/18 02:50 03:00 03:10 Temperature Pulse Rate 86 85 83 Pulse Rate [ Apical] Respiratory 19 22 11 L Rate Blood Pressure 140/80 135/68 135/68 O2 Sat by Pulse 98 95 97 Oximetry 06/11/18 06/11/18 06/11/18 03:20 03:30 03:40 Temperature Pulse Rate 84 87 90 Pulse Rate [ Apical] Respiratory 12 12 13 Rate Blood Pressure 135/68 135/68 135/68 O2 Sat by Pulse 99 97 98 Oximetry 06/11/18 06/11/18 06/11/18 03:50 04:00 04:10 Temperature 98.6 F Pulse Rate 93 H 91 H 91 H Pulse Rate [ 90 Apical] Respiratory 14 12 16 Rate Blood Pressure 135/68 101/44 101/44 O2 Sat by Pulse 89 91 89 Oximetry 06/11/18 06/11/18 06/11/18 04:20 04:30 04:40 Temperature Pulse Rate 91 H 91 H 91 H Pulse Rate [ Apical] Respiratory 14 15 13 Rate Blood Pressure 135/68 135/68 135/68 O2 Sat by Pulse 86 87 88 Oximetry 06/11/18 06/11/18 06/11/18 04:50 05:00 05:10 Temperature Pulse Rate 90 89 90 Pulse Rate [ Apical] Respiratory 14 15 13 Rate Blood Pressure 101/44 102/48 102/48 O2 Sat by Pulse 89 89 90 Oximetry 06/11/18 06/11/18 06/11/18 05:20 05:30 05:40 Temperature Pulse Rate 88 85 84 Pulse Rate [ Apical] Respiratory 13 14 14 Rate Blood Pressure 102/48 102/48 102/48 O2 Sat by Pulse 90 93 96 Oximetry 06/11/18 06/11/18 06/11/18 05:50 06:00 06:10 Temperature Pulse Rate 85 79 Pulse Rate [ Apical] Respiratory 20 17 Rate Blood Pressure 102/48 108/50 108/50 O2 Sat by Pulse 95 98 98 Oximetry 06/11/18 06/11/18 06/11/18 06:20 06:30 06:40 Temperature Pulse Rate 83 84 81 Pulse Rate [ Apical] Respiratory 16 17 15 Rate Blood Pressure 108/50 102/48 102/48 O2 Sat by Pulse 96 97 98 Oximetry 06/11/18 06/11/18 06/11/18 06:50 07:00 07:10 Temperature Pulse Rate 82 79 81 Pulse Rate [ Apical] Respiratory 19 15 22 Rate Blood Pressure 102/48 99/48 99/48 O2 Sat by Pulse 99 97 99 Oximetry 06/11/18 08:00 Temperature 97.9 F Pulse Rate Pulse Rate [ Apical] Respiratory Rate Blood Pressure O2 Sat by Pulse Oximetry - Lab 06/12/18 05:00 06/12/18 05:00 Most recent lab results Calcium 8.4 mg/dL (8.4-10.2) 06/11/18 06:12 Medications & Allergies - Medications Allergies/Adverse Reactions: Allergies No Known Allergies Allergy (Verified 05/18/18 14:57) Home Medications: Home Medications Medication Instructions Recorded Confirmed Last Taken Type AtorvaSTATin [Lipitor] 40 mg PO QHS #30 tab 08/14/17 06/09/18 05/18/18 20:00 Rx Polyethylene Glycol 3350 [Miralax 17 gm PO BID #60 packet 08/14/17 06/09/18 05/18/18 20:00 Rx 3350] Allopurinol [Zyloprim] 100 mg PO QDAY 11/02/17 06/09/18 05/18/18 20:00 History Cholecalciferol (Vitamin D3) 2,000 unit PO DAILY 11/02/17 06/09/18 05/18/18 09:00 History [Vitamin D3] Furosemide [Lasix] 80 mg PO DAILY 11/02/17 06/09/18 05/18/18 20:00 History Omeprazole 40 mg PO QDAY 11/02/17 06/09/18 05/18/18 20:00 History Aspirin EC [Aspirin Enteric Coated 81 mg PO QDAY #30 tablet 11/04/17 06/09/18 05/18/18 20:00 Rx TAB] HYDROcodone/ACETAMINOPHEN 1 each PO Q6H PRN #20 tablet 05/19/18 06/09/18 Unknown Rx [Hydrocodone-Acetamin 5-325 mg] Active Medications: Generic Name Dose Route Start Last Admin Trade Name Freq PRN Reason Stop Dose Admin Acetaminophen 650 mg 06/09/18 21:33 Tylenol PO Q4H PRN Pain MILD(1-3)/Fever >100.5/THOMPSON Acetaminophen/Hydrocodone Bitart 1 each 06/09/18 21:32 [place] 5/325 PO Q6H PRN Pain, Moderate (4-6) Allopurinol 100 mg 06/10/18 10:00 06/10/18 12:48 Zyloprim PO 100 mg QDAY ZENAIDA Administration Amlodipine Besylate 10 mg 06/10/18 12:00 06/10/18 12:48 Norvasc PO 10 mg QDAY ZENAIDA Administration Aspirin 81 mg 06/10/18 10:00 06/10/18 12:48 Halfprin Ec PO 81 mg QDAY ZENAIDA Administration Atorvastatin Calcium 40 mg 06/09/18 22:00 06/10/18 22:25 Lipitor PO 40 mg QHS ZENAIDA Administration Cholecalciferol 2,000 unit 06/10/18 10:00 06/10/18 12:48 Vitamin D3 PO 2,000 unit DAILY ZENAIDA Administration Furosemide 80 mg 06/10/18 10:00 06/10/18 11:32 Lasix PO 80 mg DAILY ZENAIDA Administration Hydralazine HCl 10 mg 06/10/18 15:29 Apresoline IV Q4HR PRN Blood Pressure Hydromorphone HCl 0.5 mg 06/09/18 21:33 06/11/18 03:40 Dilaudid IV 0.5 mg Q3H PRN Administration Pain , Severe (7-10) Ondansetron HCl 4 mg 06/09/18 21:33 Zofran IV Q8H PRN Nausea And Vomiting Pantoprazole Sodium 40 mg 06/10/18 10:00 06/10/18 11:32 Protonix PO 40 mg DAILY ZENAIDA Administration Polyethylene Glycol 17 gm 06/10/18 22:00 06/10/18 22:25 Miralax 3350 PO Not Given BID ZENAIDA Sodium Chloride 10 ml 06/09/18 22:00 06/10/18 22:25 Sodium Chloride Flush Syringe 10 Ml IV 10 ml BID ZENAIDA Administration Sodium Chloride 10 ml 06/09/18 21:33 Sodium Chloride Flush Syringe 10 Ml IV PRN PRN LINE FLUSH
[2018-06-11] MEDS ORDERED: PROCRIT SUB-Q NR (11:00)
[2018-06-11] MEDS ORDERED: PROCRIT SUB-Q ONE (12:00)
[2018-06-11] MEDS: PROAMATINE PO SCH ×2 (12:10→17:33)
--- NOTE | 2018-06-11 12:28 | Progress Note ---
Assessment and Plan Assessment and plan: Patient is a 68-year-old -[place] man with history of Gout, ESRD on HD T//Wed, hyperlipidemia, and hypertension presented to the ED with complaints of generalized weakness, chest pain, chills. He was admitted on 06/09 for sepsis. He was started on levophed gtt, which was discontinued 06/10/18. Sepsis with shock (shock resolved of Vasopressors) from suspected HD catheter s/p removal Left IJ perm-a-cath on 06/10/18: follow cultures, continue abx, ID following ESRD on HD Currently on HD: Wednesday AV graft performed by Dr. Leif Oliver a month ago Vascular consult with Dr. Oliver pending, Nephrology following Hypertension- Start Norvasc 10mg Continue to monitor BP AOCD: monitor cbc closely h/o Hyperlipidemia h/o Vitamin D deficiency JYOTI pending Can tranfer out of IMCU History Interval history: Patient was seen and examined. Follow-up on current diagnosis sepsis. Overnight uneventful. Patient denies any chest pain, shortness breath, nausea/vomiting or severe headaches. Imaging, nursing note, chart, labs and old chart reviewed. Discussed with patient. Hospitalist Physical - Physical exam Narrative exam: Gen: WDWN, NAD, Awake, Alert, Orientated HEENT: NCAT, EOMI, PERRL, OP Clear Neck: supple, no adenopathy, no thyromegaly, no JVD CVS/Heart: RRR, normal S1S2, pulses present bilaterally Chest/Lungs: CTA B, Symmetrical chest expansion, good air entry bilaterally GI/Abdomen: soft, NTND, good bowel sounds, no guarding or rebound /Bladder: no suprapubic tenderness, no CVA or paraspinal tenderness Extermity/Skin: no c/c/e, no obvious rash MSK: FROM x 4 Neuro: CN 2-12 grossly intact, no new focal deficits Psych: calm - Constitutional Vitals: Temp Pulse Resp BP Pulse Ox 97.9 F 81 22 99/48 99 06/11/18 08:00 06/11/18 07:10 06/11/18 07:10 06/11/18 07:10 06/11/18 07:10 General appearance: Present: no acute distress Results - Labs CBC & Chem 7: 06/11/18 06:12 06/11/18 06:12 Labs: Laboratory Last Values WBC 7.5 K/mm3 (4.5-11.0) 06/11/18 06:12 RBC 2.81 M/mm3 (3.65-5.03) L 06/11/18 06:12 Hgb 8.7 gm/dl (11.8-15.2) L 06/11/18 06:12 Hct 27.7 % (35.5-45.6) L 06/11/18 06:12 MCV 99 fl (84-94) H 06/11/18 06:12 MCH 31 pg (28-32) 06/11/18 06:12 MCHC 32 % (32-34) 06/11/18 06:12 RDW 17.0 % (13.2-15.2) H 06/11/18 06:12 Plt Count 181 K/mm3 (140-440) 06/11/18 06:12 Lymph % (Auto) 13.5 % (13.4-35.0) 06/11/18 06:12 [place] % (Auto) 13.2 % (0.0-7.3) H 06/11/18 06:12 Eos % (Auto) 13.6 % (0.0-4.3) H 06/11/18 06:12 Baso % (Auto) 0.3 % (0.0-1.8) 06/11/18 06:12 Lymph # 1.0 K/mm3 (1.2-5.4) L 06/11/18 06:12 [place] # 1.0 K/mm3 (0.0-0.8) H 06/11/18 06:12 Eos # 1.0 K/mm3 (0.0-0.4) H 06/11/18 06:12 Baso # 0.0 K/mm3 (0.0-0.1) 06/11/18 06:12 Seg Neutrophils % 59.4 % (40.0-70.0) 06/11/18 06:12 Seg Neutrophils # 4.4 K/mm3 (1.8-7.7) 06/11/18 06:12 Sodium 137 mmol/L (137-145) 06/11/18 06:12 Potassium 4.9 mmol/L (3.6-5.0) 06/11/18 06:12 Chloride 101.8 mmol/L (98-107) 06/11/18 06:12 Carbon Dioxide 18 mmol/L (22-30) L 06/11/18 06:12 Anion Gap 22 mmol/L 06/11/18 06:12 BUN 65 mg/dL (9-20) H 06/11/18 06:12 Creatinine 12.0 mg/dL (0.8-1.5) H 06/11/18 06:12 Estimated GFR 5 ml/min 06/11/18 06:12 BUN/Creatinine Ratio 5 % 06/11/18 06:12 Glucose 87 mg/dL (75-100) 06/11/18 06:12 Hemoglobin A1c 5.0 % (4-6) 06/09/18 22:50 Lactic Acid 1.20 mmol/L (0.7-2.0) 06/09/18 13:00 Calcium 8.4 mg/dL (8.4-10.2) 06/11/18 06:12 Total Bilirubin 0.30 mg/dL (0.1-1.2) 06/10/18 10:00 AST 34 units/L (5-40) 06/10/18 10:00 ALT 16 units/L (7-56) 06/10/18 10:00 Alkaline Phosphatase 58 units/L (35-129) 06/10/18 10:00 Troponin T 0.063 ng/mL (0.00-0.029) H 06/09/18 09:05 Total Protein 6.6 g/dL (6.3-8.2) 06/10/18 10:00 Albumin 2.8 g/dL (3.9-5) L 06/10/18 10:00 Albumin/Globulin Ratio 0.7 % 06/10/18 10:00 Triglycerides 120 mg/dL (2-149) 06/09/18 09:05 Cholesterol 152 mg/dL (50-199) 06/09/18 09:05 LDL Cholesterol Direct 92 mg/dL (50-130) 06/09/18 09:05 HDL Cholesterol 47 mg/dL (40-59) 06/09/18 09:05 Cholesterol/HDL Ratio 3.23 % 06/09/18 09:05 Random Vancomycin 11.2 ug/mL (0-40.0) 06/11/18 06:12 Active Medications - Current Medications Current Medications: Generic Name Dose Route Start Last Admin Trade Name Freq PRN Reason Stop Dose Admin Acetaminophen 650 mg 06/09/18 21:33 Tylenol PO Q4H PRN Pain MILD(1-3)/Fever >100.5/THOMPSON Acetaminophen/Hydrocodone Bitart 1 each 06/09/18 21:32 [place] 5/325 PO Q6H PRN Pain, Moderate (4-6) Allopurinol 100 mg 06/10/18 10:00 06/11/18 10:37 Zyloprim PO 100 mg QDAY ZENAIDA Administration Amlodipine Besylate 10 mg 06/10/18 12:00 06/11/18 10:38 Norvasc PO 10 mg QDAY ZENAIDA Administration Aspirin 81 mg 06/10/18 10:00 06/11/18 10:38 Halfprin Ec PO 81 mg QDAY ZENAIDA Administration Atorvastatin Calcium 40 mg 06/09/18 22:00 06/10/18 22:25 Lipitor PO 40 mg QHS ZENAIDA Administration Cholecalciferol 2,000 unit 06/10/18 10:00 06/11/18 10:37 Vitamin D3 PO 2,000 unit DAILY ZENAIDA Administration Epoetin Andrez 10,000 unit 06/11/18 11:00 06/11/18 12:09 Procrit SUB-Q 06/11/18 13:00 10,000 unit ONCE NR Administration Furosemide 80 mg 06/10/18 10:00 06/11/18 10:37 Lasix PO 80 mg DAILY ZENAIDA Administration Hydralazine HCl 10 mg 06/10/18 15:29 Apresoline IV Q4HR PRN Blood Pressure Hydromorphone HCl 0.5 mg 06/09/18 21:33 06/11/18 03:40 Dilaudid IV 0.5 mg Q3H PRN Administration Pain , Severe (7-10) Midodrine 5 mg 06/11/18 11:15 06/11/18 12:10 Proamatine PO 5 mg BID@0600,1800 ZENAIDA Administration Ondansetron HCl 4 mg 06/09/18 21:33 Zofran IV Q8H PRN Nausea And Vomiting Pantoprazole Sodium 40 mg 06/10/18 10:00 06/11/18 10:37 Protonix PO 40 mg DAILY ZENAIDA Administration Polyethylene Glycol 17 gm 06/10/18 22:00 06/11/18 10:38 Miralax 3350 PO 17 gm BID ZENAIDA Administration Sodium Chloride 10 ml 06/09/18 22:00 06/11/18 10:38 Sodium Chloride Flush Syringe 10 Ml IV 10 ml BID ZENAIDA Administration Sodium Chloride 10 ml 06/09/18 21:33 Sodium Chloride Flush Syringe 10 Ml IV PRN PRN LINE FLUSH
[2018-06-12] MEDS: PROAMATINE PO SCH ×2 (06:06→18:08)
[2018-06-12 07:12] LABS: Calcium 8.2 mg/dL (8.4-10.2)
[2018-06-12 08:37] LABS: Hematocrit 27.1 % (35.5-45.6); Hemoglobin 8.7 gm/dl (11.8-15.2); Mean Corpuscular HGB Conc 32 % (32-34); Mean Corpuscular Volume 97 fl (84-94); Platelet Count 200 K/mm3 (140-440); Red Blood Count 2.79 M/mm3 (3.65-5.03); Red Cell Distribution Width 16.6 % (13.2-15.2)
[2018-06-12 10:22] LABS: Basophils % (Manual) 0 % (0.0-1.8); Total Cells Counted 100
[2018-06-12 10:24] LABS: Ovalocytes Few; Platelet Estimate Consistent w Auto
[2018-06-12] MEDS: PROTONIX PO SCH (10:50)
[2018-06-12] MEDS: VITAMIN D3 PO SCH (10:50)
[2018-06-12] MEDS: LASIX PO SCH (10:51)
[2018-06-12] MEDS: HALFPRIN EC PO SCH (10:51)
[2018-06-12] MEDS: ZYLOPRIM PO SCH (11:19)
[2018-06-12] MEDS: NORVASC PO SCH (11:19)
[2018-06-12] MEDS: SODIUM CHLORIDE FLUSH SYRINGE 10 ML IV SCH ×2 (11:20→21:39)
--- NOTE | 2018-06-12 12:33 | Progress Note ---
Assessment and Plan Assessment and plan: Patient is a 68-year-old -[place] man with history of Gout, ESRD on HD T//Wed, hyperlipidemia, and hypertension presented to the ED with complaints of generalized weakness, chest pain, chills. He was admitted on 06/09 for sepsis. He was started on levophed gtt, which was discontinued 06/10/18. Sepsis with shock (shock resolved of Vasopressors) from suspected HD catheter s/p removal Left IJ perm-a-cath on 06/10/18: follow cultures, continue abx, ID following ESRD on HD Currently on HD: Wednesday AV graft performed by Dr. Leif Oliver a month ago Vascular consult with Dr. Oliver pending, Nephrology following Hypertension- Start Norvasc 10mg Continue to monitor BP AOCD: monitor cbc closely h/o Hyperlipidemia h/o Vitamin D deficiency TTE reviewed, D/c once cleared by ID and vascular History Interval history: Patient was seen and examined. Follow-up on current diagnosis sepsis. Overnight uneventful. Patient denies any chest pain, shortness breath, nausea/vomiting or severe headaches. Imaging, nursing note, chart, labs and old chart reviewed. Discussed with patient. Hospitalist Physical - Physical exam Narrative exam: Gen: WDWN, NAD, Awake, Alert, Orientated HEENT: NCAT, EOMI, PERRL, OP Clear Neck: supple, no adenopathy, no thyromegaly, no JVD CVS/Heart: RRR, normal S1S2, pulses present bilaterally Chest/Lungs: CTA B, Symmetrical chest expansion, good air entry bilaterally GI/Abdomen: soft, NTND, good bowel sounds, no guarding or rebound /Bladder: no suprapubic tenderness, no CVA or paraspinal tenderness Extermity/Skin: no c/c/e, no obvious rash MSK: FROM x 4 Neuro: CN 2-12 grossly intact, no new focal deficits Psych: calm - Constitutional Vitals: Temp Pulse Resp BP Pulse Ox 97.4 F L 82 18 106/54 96 06/12/18 07:46 06/12/18 11:19 06/12/18 07:46 06/12/18 11:19 06/12/18 07:46 General appearance: Present: no acute distress Results - Labs CBC & Chem 7: 06/12/18 05:00 04/14/19 05:00 Labs: Laboratory Last Values WBC 6.9 K/mm3 (4.5-11.0) 06/12/18 05:00 RBC 2.79 M/mm3 (3.65-5.03) L 06/12/18 05:00 Hgb 8.7 gm/dl (11.8-15.2) L 06/12/18 05:00 Hct 27.1 % (35.5-45.6) L 06/12/18 05:00 MCV 97 fl (84-94) H 06/12/18 05:00 MCH 31 pg (28-32) 06/12/18 05:00 MCHC 32 % (32-34) 06/12/18 05:00 RDW 16.6 % (13.2-15.2) H 06/12/18 05:00 Plt Count 200 K/mm3 (140-440) 06/12/18 05:00 Lymph % (Auto) 13.5 % (13.4-35.0) 06/11/18 06:12 [place] % (Auto) 13.2 % (0.0-7.3) H 06/11/18 06:12 Eos % (Auto) [place] Administrator 06/12/18 05:00 Baso % (Auto) 0.3 % (0.0-1.8) 06/11/18 06:12 Lymph # 1.0 K/mm3 (1.2-5.4) L 06/11/18 06:12 [place] # 1.0 K/mm3 (0.0-0.8) H 06/11/18 06:12 Eos # 1.0 K/mm3 (0.0-0.4) H 06/11/18 06:12 Baso # 0.0 K/mm3 (0.0-0.1) 06/11/18 06:12 Add Manual Diff Complete 06/12/18 05:00 Total Counted 100 06/12/18 05:00 Seg Neutrophils % 59.4 % (40.0-70.0) 06/11/18 06:12 Seg Neuts % (Manual) 69.0 % (40.0-70.0) 06/12/18 05:00 Band Neutrophils % 0 % 06/12/18 05:00 Lymphocytes % (Manual) 8.0 % (13.4-35.0) L 06/12/18 05:00 Reactive Lymphs % (Man) 0 % 06/12/18 05:00 Monocytes % (Manual) 8.0 % (0.0-7.3) H 06/12/18 05:00 Eosinophils % (Manual) 15.0 % (0.0-4.3) H 06/12/18 05:00 Basophils % (Manual) 0 % (0.0-1.8) 06/12/18 05:00 Metamyelocytes % 0 % 06/12/18 05:00 Myelocytes % 0 % 06/12/18 05:00 Promyelocytes % 0 % 06/12/18 05:00 Blast Cells % 0 % 06/12/18 05:00 Nucleated RBC % Not Reportable 06/12/18 05:00 Seg Neutrophils # 4.4 K/mm3 (1.8-7.7) 06/11/18 06:12 Seg Neutrophils # Man 4.8 K/mm3 (1.8-7.7) 06/12/18 05:00 Band Neutrophils # 0.0 K/mm3 06/12/18 05:00 Lymphocytes # (Manual) 0.6 K/mm3 (1.2-5.4) L 06/12/18 05:00 Abs React Lymphs (Man) 0.0 K/mm3 06/12/18 05:00 Monocytes # (Manual) 0.6 K/mm3 (0.0-0.8) 06/12/18 05:00 Eosinophils # (Manual) 1.0 K/mm3 (0.0-0.4) H 06/12/18 05:00 Basophils # (Manual) 0.0 K/mm3 (0.0-0.1) 06/12/18 05:00 Metamyelocytes # 0.0 K/mm3 06/12/18 05:00 Myelocytes # 0.0 K/mm3 06/12/18 05:00 Promyelocytes # 0.0 K/mm3 06/12/18 05:00 Blast Cells # 0.0 K/mm3 06/12/18 05:00 WBC Morphology Not Reportable 06/12/18 05:00 Hypersegmented Neuts Not Reportable 06/12/18 05:00 Hyposegmented Neuts Not Reportable 06/12/18 05:00 Hypogranular Neuts Not Reportable 06/12/18 05:00 Smudge Cells Not Reportable 06/12/18 05:00 Toxic Granulation Not Reportable 06/12/18 05:00 Toxic Vacuolation Not Reportable 06/12/18 05:00 Dohle Bodies Not Reportable 06/12/18 05:00 Pel[place]-Huet Anomaly Not Reportable 06/12/18 05:00 [place] Rods Not Reportable 06/12/18 05:00 Platelet Estimate Consistent w auto 06/12/18 05:00 Clumped Platelets Not Reportable 06/12/18 05:00 Plt Clumps, EDTA Not Reportable 06/12/18 05:00 Large Platelets Not Reportable 06/12/18 05:00 Giant Platelets Not Reportable 06/12/18 05:00 Platelet Satelliting Not Reportable 06/12/18 05:00 Plt Morphology Comment Not Reportable 06/12/18 05:00 RBC Morphology Not Reportable 06/12/18 05:00 Dimorphic RBCs Not Reportable 06/12/18 05:00 Polychromasia Few 06/12/18 05:00 Hypochromasia Not Reportable 06/12/18 05:00 Poikilocytosis Not Reportable 06/12/18 05:00 Anisocytosis Not Reportable 06/12/18 05:00 Microcytosis Not Reportable 06/12/18 05:00 Macrocytosis Not Reportable 06/12/18 05:00 Spherocytes Not Reportable 06/12/18 05:00 Pappenheimer Bodies Not Reportable 06/12/18 05:00 Sickle Cells Not Reportable 06/12/18 05:00 Target Cells Not Reportable 06/12/18 05:00 Tear Drop Cells Not Reportable 06/12/18 05:00 Ovalocytes Few 06/12/18 05:00 Helmet Cells Not Reportable 06/12/18 05:00 [place] Bodies Not Reportable 06/12/18 05:00 [place] Rings Not Reportable 06/12/18 05:00 Jose R Cells Not Reportable 06/12/18 05:00 Bite Cells Not Reportable 06/12/18 05:00 Crenated Cell Not Reportable 06/12/18 05:00 Elliptocytes Not Reportable 06/12/18 05:00 Acanthocytes (Spur) Not Reportable 06/12/18 05:00 Rouleaux Not Reportable 06/12/18 05:00 Hemoglobin C Crystals Not Reportable 06/12/18 05:00 Schistocytes Not Reportable 06/12/18 05:00 Malaria parasites Not Reportable 06/12/18 05:00 Willie Bodies Not Reportable 06/12/18 05:00 Hem Pathologist Commnt No 06/12/18 05:00 Sodium 137 mmol/L (137-145) 06/12/18 05:00 Potassium 4.9 mmol/L (3.6-5.0) 06/12/18 05:00 Chloride 102.1 mmol/L (98-107) 06/12/18 05:00 Carbon Dioxide 19 mmol/L (22-30) L 06/12/18 05:00 Anion Gap 21 mmol/L 06/12/18 05:00 BUN 71 mg/dL (9-20) H 06/12/18 05:00 Creatinine 13.7 mg/dL (0.8-1.5) H 06/12/18 05:00 Estimated GFR 4 ml/min 06/12/18 05:00 BUN/Creatinine Ratio 5 % 06/12/18 05:00 Glucose 83 mg/dL (75-100) 06/12/18 05:00 Hemoglobin A1c 5.0 % (4-6) 06/09/18 22:50 Lactic Acid 1.20 mmol/L (0.7-2.0) 06/09/18 13:00 Calcium 8.2 mg/dL (8.4-10.2) L 06/12/18 05:00 Total Bilirubin 0.30 mg/dL (0.1-1.2) 06/10/18 10:00 AST 34 units/L (5-40) 06/10/18 10:00 ALT 16 units/L (7-56) 06/10/18 10:00 Alkaline Phosphatase 58 units/L (35-129) 06/10/18 10:00 Troponin T 0.063 ng/mL (0.00-0.029) H 06/09/18 09:05 Total Protein 6.6 g/dL (6.3-8.2) 06/10/18 10:00 Albumin 2.8 g/dL (3.9-5) L 06/10/18 10:00 Albumin/Globulin Ratio 0.7 % 06/10/18 10:00 Triglycerides 120 mg/dL (2-149) 06/09/18 09:05 Cholesterol 152 mg/dL (50-199) 06/09/18 09:05 LDL Cholesterol Direct 92 mg/dL (50-130) 06/09/18 09:05 HDL Cholesterol 47 mg/dL (40-59) 06/09/18 09:05 Cholesterol/HDL Ratio 3.23 % 06/09/18 09:05 Random Vancomycin 11.2 ug/mL (0-40.0) 06/11/18 06:12 Active Medications - Current Medications Current Medications: Generic Name Dose Route Start Last Admin Trade Name Freq PRN Reason Stop Dose Admin Acetaminophen 650 mg 06/09/18 21:33 Tylenol PO Q4H PRN Pain MILD(1-3)/Fever >100.5/THOMPSON Acetaminophen/Hydrocodone Bitart 1 each 06/09/18 21:32 [place] 5/325 PO Q6H PRN Pain, Moderate (4-6) Allopurinol 100 mg 06/10/18 10:00 06/12/18 11:19 Zyloprim PO 100 mg QDAY ZENAIDA Administration Amlodipine Besylate 10 mg 06/10/18 12:00 06/12/18 11:19 Norvasc PO Not Given QDAY ZENAIDA Aspirin 81 mg 06/10/18 10:00 06/12/18 10:51 Halfprin Ec PO 81 mg QDAY ZENAIDA Administration Atorvastatin Calcium 40 mg 06/09/18 22:00 06/11/18 22:03 Lipitor PO 40 mg QHS ZENAIDA Administration Cholecalciferol 2,000 unit 06/10/18 10:00 06/12/18 10:50 Vitamin D3 PO 2,000 unit DAILY ZENAIDA Administration Furosemide 80 mg 06/10/18 10:00 06/12/18 10:51 Lasix PO 80 mg DAILY ZENAIDA Administration Hydralazine HCl 10 mg 06/10/18 15:29 Apresoline IV Q4HR PRN Blood Pressure Hydromorphone HCl 0.5 mg 06/09/18 21:33 06/11/18 03:40 Dilaudid IV 0.5 mg Q3H PRN Administration Pain , Severe (7-10) Midodrine 5 mg 06/11/18 11:15 06/12/18 06:06 Proamatine PO 5 mg BID@0600,1800 ZENAIDA Administration Ondansetron HCl 4 mg 06/09/18 21:33 Zofran IV Q8H PRN Nausea And Vomiting Pantoprazole Sodium 40 mg 06/10/18 10:00 06/12/18 10:50 Protonix PO 40 mg DAILY ZENAIDA Administration Sodium Chloride 10 ml 06/09/18 22:00 06/12/18 11:20 Sodium Chloride Flush Syringe 10 Ml IV 10 ml BID ZENAIDA Administration Sodium Chloride 10 ml 06/09/18 21:33 Sodium Chloride Flush Syringe 10 Ml IV PRN PRN LINE FLUSH
--- NOTE | 2018-06-12 15:07 | Progress Note ---
Assessment and Plan Cultures: 06/09/2018 blood culture: 2 sets positive for MSSA 06/10/2018 Blood culture: negative at 48 hours A/P: 68-year-old male with ESRD on hemodialysis, hypertension, gout, hyperlipidemia admitted with: 1) Sepsis secondary to MSSA bacteremia: Source likely infected HD catheter, s/p removal 06/10/2018. TTE with normal EF, no vegetations noted. Since bacteremia cleared quickly, no need for JYOTI. 2) ESRD on hemodialysis: He does antibiotics. Nephrology following. patient is status post creation of a right arm AV graft using bovine carotid artery on 05/19/[address] Oliver. 3) Chronic anemia Recs: switched to IV Cefazolin for MSSA bacteremia TTE with normal EF, no vegetations noted. Since bacteremia cleared quickly, no need for JYOTI Zuleika Stephens MD [facility] C: [phone] O: [phone] F: [phone] Subjective Date of service: 06/12/18 Interval history: No fever. Had HD cath removed on Wednesday afternoon. Feeling well. Objective - Exam Narrative Exam: Physical Exam: Constitutional: Alert, cooperative. No acute distress Head, Ears, Nose: Normocephalic, atraumatic. External ears, nose normal Eyes: Conjunctivae/corneas clear. No icterus. No ptosis. Neck: Supple, no meningeal signs Oral: dentition fair, no thrush Cardiovascular: S1, S2 normal. Respiratory: Good air entry, clear to auscultation bilaterally GI: Soft, non-tender; bowel sounds normal. No peritoneal signs Musculoskeletal: No pedal edema, no cyanosis. Right arm AVG and left subclavian dressing + Skin: No rash or abscess Hem/Lymphatic: No palpable cervical or supraclavicular nodes. No lymphangitis Psych: Mood ok. Affect normal Neurological: Awake, alert, oriented. No gross abnormality - Constitutional Vitals: Vital Signs Temp Pulse Resp BP Pulse Ox 97.4 F L 82 18 106/54 96 06/12/18 07:46 06/12/18 11:19 06/12/18 07:46 06/12/18 11:19 06/12/18 10:00 Temperature -Last 24 Hours Temperature 97.4 F Temperature 98.0 F Temperature 98.8 F - Labs CBC & Chem 7: 06/12/18 05:00 06/12/18 05:00 Labs: Abnormal lab results 06/12/18 06/12/18 Range/Units 05:00 05:00 RBC 2.79 L (3.65-5.03) M/mm3 Hgb 8.7 L (11.8-15.2) gm/dl Hct 27.1 L (35.5-45.6) % MCV 97 H (84-94) fl RDW 16.6 H (13.2-15.2) % Lymphocytes % (Manual) 8.0 L (13.4-35.0) % Monocytes % (Manual) 8.0 H (0.0-7.3) % Eosinophils % (Manual) 15.0 H (0.0-4.3) % Lymphocytes # (Manual) 0.6 L (1.2-5.4) K/mm3 Eosinophils # (Manual) 1.0 H (0.0-0.4) K/mm3 Carbon Dioxide 19 L (22-30) mmol/L BUN 71 H (9-20) mg/dL Creatinine 13.7 H (0.8-1.5) mg/dL Calcium 8.2 L (8.4-10.2) mg/dL
--- NOTE | 2018-06-12 17:26 | Progress Note ---
Subjective Interval history: Patient was seen today for follow-up on multiple renal related issues Events of this hospitalization noted feeling much better Patient denies having any chest pain pressure or shortness of breath Vitals labs intake output medications were reviewed Social history: Reviewed Allergies: Reviewed Family history: Reviewed Physical examination HEENT: Oral mucosa moist no pallor or icterus Neck: Supple no JVD Chest: Clear to auscultation anteriorly CVS: Regular rate and rhythm S1 and S2 heard Abdomen: Soft nontender no suprapubic masses no organomegaly appreciable Extremity: Dry skin less than 1+ peripheral edema Musculoskeletal: No joint effusion noted in knees and ankle Neurological: Alert awake Dermatology: No petechial rashes Psychiatry: No evidence of any agitation and aggression noted Assessment and plan End-stage renal disease: Patient is currently on hemodialysis, and will need to continue with hemodialysis on Wednesday schedule Patient blood pressure is currently better today Hypotension has improved If possible would like to use AV graft, check with vascular surgery tomorrow Anemia and end-stage renal disease: Periodically on erythropoietin Secondary hyperparathyroidism: Check phosphorus and PTH level periodically, binders as needed Dialysis access: Currently working well, permacath removed as a Malnutrition risk: High consider high-protein diet dietitian evaluation and follow-up in general 1.5 g protein per KG body weight Fluid restriction: 1200 cc per day not to exceed more than that Adequately counseled and educated about other hospital related issues as well Labs were discussed with patient and simple Frisian Patient does appear to have good understanding of all the dialysis related issues We'll continue to follow and make recommendation from renal standpoint Objective - Vital Signs Vital signs: Vital Signs - 12hr 06/12/18 06/12/18 06/12/18 07:46 10:00 11:19 Temperature 97.4 F L Pulse Rate 82 82 Pulse Rate [ 82 Apical] Respiratory 18 Rate Blood Pressure 106/54 106/54 Blood Pressure [Left] O2 Sat by Pulse 96 96 Oximetry 06/12/18 15:55 Temperature 98.0 F Pulse Rate 80 Pulse Rate [ Apical] Respiratory 18 Rate Blood Pressure Blood Pressure 140/88 [Left] O2 Sat by Pulse 98 Oximetry - Lab 06/12/18 05:00 06/12/18 05:00 Most recent lab results Calcium 8.2 mg/dL (8.4-10.2) L 06/12/18 05:00 Medications & Allergies - Medications Allergies/Adverse Reactions: Allergies No Known Allergies Allergy (Verified 05/18/18 14:57) Home Medications: Home Medications Medication Instructions Recorded Confirmed Last Taken Type AtorvaSTATin [Lipitor] 40 mg PO QHS #30 tab 08/14/17 06/09/18 05/18/18 20:00 Rx Polyethylene Glycol 3350 [Miralax 17 gm PO BID #60 packet 08/14/17 06/09/18 05/18/18 20:00 Rx 3350] Allopurinol [Zyloprim] 100 mg PO QDAY 11/02/17 06/09/18 05/18/18 20:00 History Cholecalciferol (Vitamin D3) 2,000 unit PO DAILY 11/02/17 06/09/18 05/18/18 09:00 History [Vitamin D3] Furosemide [Lasix] 80 mg PO DAILY 11/02/17 06/09/18 05/18/18 20:00 History Omeprazole 40 mg PO QDAY 11/02/17 06/09/18 05/18/18 20:00 History Aspirin EC [Aspirin Enteric Coated 81 mg PO QDAY #30 tablet 11/04/17 06/09/18 0 05/18/18 20:00 Rx TAB] HYDROcodone/ACETAMINOPHEN 1 each PO Q6H PRN #20 tablet 05/19/18 06/09/18 Unknown Rx [Hydrocodone-Acetamin 5-325 mg] Active Medications: Generic Name Dose Route Start Last Admin Trade Name Freq PRN Reason Stop Dose Admin Acetaminophen 650 mg 06/09/18 21:33 Tylenol PO Q4H PRN Pain MILD(1-3)/Fever >100.5/THOMPSON Acetaminophen/Hydrocodone Bitart 1 each 06/09/18 21:32 [place] 5/325 PO Q6H PRN Pain, Moderate (4-6) Allopurinol 100 mg 06/10/18 10:00 06/12/18 11:19 Zyloprim PO 100 mg QDAY ZENAIDA Administration Amlodipine Besylate 10 mg 06/10/18 12:00 06/12/18 11:19 Norvasc PO Not Given QDAY ZENAIDA Aspirin 81 mg 06/10/18 10:00 06/12/18 10:51 Halfprin Ec PO 81 mg QDAY ZENAIDA Administration Atorvastatin Calcium 40 mg 06/09/18 22:00 06/11/18 22:03 Lipitor PO 40 mg QHS ZENAIDA Administration Cholecalciferol 2,000 unit 06/10/18 10:00 06/12/18 10:50 Vitamin D3 PO 2,000 unit DAILY ZENAIDA Administration Furosemide 80 mg 06/10/18 10:00 06/12/18 10:51 Lasix PO 80 mg DAILY ZENAIDA Administration Hydralazine HCl 10 mg 06/10/18 15:29 Apresoline IV Q4HR PRN Blood Pressure Hydromorphone HCl 0.5 mg 06/09/18 21:33 06/11/18 03:40 Dilaudid IV 0.5 mg Q3H PRN Administration Pain , Severe (7-10) Cefazolin Sodium 1 gm in 50 mls @ 100 mls/hr 06/12/18 22:00 Ancef/Ns 1 Gm/50 Ml IV Q24H [facility] Protocol Midodrine 5 mg 06/11/18 11:15 06/12/18 06:06 Proamatine PO 5 mg BID@0600,1800 ZENAIDA Administration Ondansetron HCl 4 mg 06/09/18 21:33 Zofran IV Q8H PRN Nausea And Vomiting Pantoprazole Sodium 40 mg 06/10/18 10:00 06/12/18 10:50 Protonix PO 40 mg DAILY ZENAIDA Administration Sodium Chloride 10 ml 06/09/18 22:00 06/12/18 11:20 Sodium Chloride Flush Syringe 10 Ml IV 10 ml BID ZENAIDA Administration Sodium Chloride 10 ml 06/09/18 21:33 Sodium Chloride Flush Syringe 10 Ml IV PRN PRN LINE FLUSH
[2018-06-12] MEDS ORDERED: ANCEF/NS 1 GM/50 ML 1 GM/50 ML BAG IV SCH (22:00)
[2018-06-13] MEDS: PROAMATINE PO SCH ×2 (05:11→17:51)
[2018-06-13 05:49] LABS: Hematocrit 25.9 % (35.5-45.6); Hemoglobin 8.3 gm/dl (11.8-15.2); Mean Corpuscular HGB Conc 32 % (32-34); Mean Corpuscular Volume 97 fl (84-94); Platelet Count 225 K/mm3 (140-440); Red Blood Count 2.67 M/mm3 (3.65-5.03); Red Cell Distribution Width 16.8 % (13.2-15.2)
[2018-06-13 06:00] LABS: Calcium 8.1 mg/dL (8.4-10.2)
[2018-06-13 06:39] LABS: Basophils % (Manual) 0 % (0.0-1.8); Total Cells Counted 100
[2018-06-13 06:40] LABS: Anisocytosis 1+; Large Platelets 1+; Ovalocytes 1+; Platelet Estimate Consistent w Auto
[2018-06-13] MEDS: NORVASC PO SCH (09:02)
--- NOTE | 2018-06-13 09:57 | Progress Note ---
Assessment and Plan impression * ESRD * Sepsis * Catheter associated MRSA bacteremia --Blood cx: MSSA (Jun 09) --Blood cx: NGTD (Jun 10) --L IJ PC successfully removed (Jun 10) * Hx of hypertension * Anemia * Type II DM Recommendations * Permcath removed on Wednesday; awaiting reinsertion vs vascular surgery AVG clearance for use * Continue dialysis on TTS schedule as outpatient * UF as tolerated * Kayexelate 15g x 1 dose * Adjust diet and meds for ESRD state * No IV, BP or venipuncture in access arm * Procrit with dialysis * Binders with diet Subjective Date of service: 06/13/18 Interval history: Patient has no complaints. Objective - Vital Signs Vital signs: Vital Signs - 12hr 06/13/18 06/13/18 02:19 07:52 Temperature 97.8 F 98.1 F Pulse Rate 83 76 Respiratory 17 20 Rate Blood Pressure 115/67 125/79 O2 Sat by Pulse 98 97 Oximetry - General Appearance General appearance: well-developed, well-nourished EENT: ATNC Respiratory: Present: Clear to Ascultation Cardiology: regular, S1S2 Gastrointestinal: normal, no tenderness, no distended Integumentary: no rash, warm and dry Neurologic: alert and oriented x3 Musculoskeletal: other (no edema) Psychiatric: cooperative - Lab 06/13/18 05:10 06/13/18 05:10 Most recent lab results Calcium 8.1 mg/dL (8.4-10.2) L 06/13/18 05:10 Medications & Allergies - Medications Allergies/Adverse Reactions: Allergies No Known Allergies Allergy (Verified 05/18/18 14:57) Home Medications: Home Medications Medication Instructions Recorded Confirmed Last Taken Type AtorvaSTATin [Lipitor] 40 mg PO QHS #30 tab 08/14/17 06/09/18 05/18/18 20:00 Rx Polyethylene Glycol 3350 [Miralax 17 gm PO BID #60 packet 08/14/17 06/09/18 05/18/18 20:00 Rx 3350] Allopurinol [Zyloprim] 100 mg PO QDAY 11/02/17 06/09/18 05/18/18 20:00 History Cholecalciferol (Vitamin D3) 2,000 unit PO DAILY 11/02/17 06/09/18 05/18/18 09:00 History [Vitamin D3] Furosemide [Lasix] 80 mg PO DAILY 11/02/17 06/09/18 05/18/18 20:00 History Omeprazole 40 mg PO QDAY 11/02/17 06/09/18 05/18/18 20:00 History Aspirin EC [Aspirin Enteric Coated 81 mg PO QDAY #30 tablet 11/04/17 06/09/18 05/18/18 20:00 Rx TAB] HYDROcodone/ACETAMINOPHEN 1 each PO Q6H PRN #20 tablet 05/19/18 06/09/18 Unknown Rx [Hydrocodone-Acetamin 5-325 mg] Active Medications: Generic Name Dose Route Start Last Admin Trade Name Freq PRN Reason Stop Dose Admin Acetaminophen 650 mg 06/09/18 21:33 Tylenol PO Q4H PRN Pain MILD(1-3)/Fever >100.5/THOMPSON Acetaminophen/Hydrocodone Bitart 1 each 06/09/18 21:32 [place] 5/325 PO Q6H PRN Pain, Moderate (4-6) Allopurinol 100 mg 06/10/18 10:00 06/12/18 11:19 Zyloprim PO 100 mg QDAY ZENAIDA Administration Amlodipine Besylate 10 mg 06/10/18 12:00 06/12/18 11:19 Norvasc PO Not Given QDAY ZENAIDA Aspirin 81 mg 06/10/18 10:00 06/12/18 10:51 Halfprin Ec PO 81 mg QDAY ZENAIDA Administration Atorvastatin Calcium 40 mg 06/09/18 22:00 06/12/18 21:38 Lipitor PO 40 mg QHS ZENAIDA Administration Cholecalciferol 2,000 unit 06/10/18 10:00 06/12/18 10:50 Vitamin D3 PO 2,000 unit DAILY ZENAIDA Administration Furosemide 80 mg 06/10/18 10:00 06/12/18 10:51 Lasix PO 80 mg DAILY ZENAIDA Administration Hydralazine HCl 10 mg 06/10/18 15:29 Apresoline IV Q4HR PRN Blood Pressure Hydromorphone HCl 0.5 mg 06/09/18 21:33 06/11/18 03:40 Dilaudid IV 0.5 mg Q3H PRN Administration Pain , Severe (7-10) Cefazolin Sodium 1 gm in 50 mls @ 100 mls/hr 06/12/18 22:00 06/12/18 21:38 Ancef/Ns 1 Gm/50 Ml IV 100 mls/hr Q24H ZENAIAD Administration Protocol Midodrine 5 mg 06/11/18 11:15 06/13/18 05:11 Proamatine PO 5 mg BID@0600,1800 ZENAIDA Administration Ondansetron HCl 4 mg 06/09/18 21:33 Zofran IV Q8H PRN Nausea And Vomiting Pantoprazole Sodium 40 mg 06/10/18 10:00 06/12/18 10:50 Protonix PO 40 mg DAILY ZENAIDA Administration Sodium Chloride 10 ml 06/09/18 22:00 06/12/18 21:39 Sodium Chloride Flush Syringe 10 Ml IV 10 ml BID ZENAIDA Administration Sodium Chloride 10 ml 06/09/18 21:33 Sodium Chloride Flush Syringe 10 Ml IV PRN PRN LINE FLUSH
--- NOTE | 2018-06-13 10:27 | Progress Note ---
Assessment and Plan Cultures: 06/09/2018 blood culture: 2 sets positive for MSSA, [place] susceptible 06/10/2018 Blood culture: negative at 48 hours A/P: 68-year-old male with ESRD on hemodialysis, hypertension, gout, hyperlipidemia admitted with: 1) Sepsis secondary to MSSA bacteremia: Source likely infected HD catheter, s/p removal 06/10/2018. TTE with normal EF, no vegetations noted. Since bacteremia cleared quickly, no need for JYOTI. 2) ESRD on hemodialysis: He does antibiotics. Nephrology following. patient is status post creation of a right arm AV graft using bovine carotid artery on 05/19/[address] Olievr. 3) Chronic anemia Recs: Continue IV Cefazolin, D2 Anticipate discharge on IV cefazolin 2gms IV Wednesday, 2gms IV and 3gms IV Wednesday Post HD for 4 weeks ending 07-08-18 Order placed with case management F/U ID clinic in 2 weeks Laila Ambrocio NP [facility] M: [phone] O:[phone] Subjective Date of service: 06/13/18 Interval history: Patient seen and examined. Siting up on the side of the bed reading. No generalized weakness, pain or SOB . No fevers. OPAT discussed, verbalized understanding. Objective - Exam Narrative Exam: Constitutional: Alert, cooperative. No acute distress Head, Ears, Nose: Normocephalic, atraumatic. External ears, nose normal Eyes: Conjunctivae/corneas clear. No icterus. No ptosis. Neck: Supple, no meningeal signs Oral: dentition fair, no thrush Cardiovascular: S1, S2 normal. Respiratory: Good air entry, clear to auscultation bilaterally GI: Soft, non-tender; bowel sounds normal. No peritoneal signs Musculoskeletal: No pedal edema, no cyanosis. Right arm AVG and left subclavian dressing + Skin: No rash or abscess Hem/Lymphatic: No palpable cervical or supraclavicular nodes. No lymphangitis Psych: Mood ok. Affect normal Neurological: Awake, alert, oriented. No gross abnormality - Constitutional Vitals: Vital Signs Temp Pulse Resp BP Pulse Ox 98.1 F 76 20 125/79 97 06/13/18 07:52 06/13/18 07:52 06/13/18 07:52 06/13/18 07:52 06/13/18 07:52 Temperature -Last 24 Hours Temperature 98.1 F Temperature 97.8 F Temperature 98.5 F Temperature 98.0 F - Labs CBC & Chem 7: 06/13/18 05:10 06/13/18 05:10 Labs: Abnormal lab results 06/13/18 06/13/18 Range/Units 05:10 05:10 RBC 2.67 L (3.65-5.03) M/mm3 Hgb 8.3 L (11.8-15.2) gm/dl Hct 25.9 L (35.5-45.6) % MCV 97 H (84-94) fl RDW 16.8 H (13.2-15.2) % Monocytes % (Manual) 8.0 H (0.0-7.3) % Eosinophils % (Manual) 25.0 H (0.0-4.3) % Lymphocytes # (Manual) 1.1 L (1.2-5.4) K/mm3 Eosinophils # (Manual) 1.7 H (0.0-0.4) K/mm3 Potassium 5.1 H (3.6-5.0) mmol/L Carbon Dioxide 19 L (22-30) mmol/L BUN 78 H (9-20) mg/dL Creatinine 14.1 H (0.8-1.5) mg/dL Calcium 8.1 L (8.4-10.2) mg/dL
--- NOTE | 2018-06-13 10:47 | Event Note ---
Date: 06/13/18 Pt awake and alert without complaint. Feels much better. LIJ PC removed. Bandages can be removed and left off. RUE upper arm avg with palpable thrill. No objection to using for HD. Pt can f/u in our office as an outpt as needed.
[2018-06-13] MEDS ORDERED: KIONEX PO ONE (11:00)
[2018-06-13] MEDS: PROTONIX PO SCH (11:05)
[2018-06-13] MEDS: VITAMIN D3 PO SCH (11:05)
[2018-06-13] MEDS: HALFPRIN EC PO SCH (11:05)
--- NOTE | 2018-06-13 11:05 | Discharge Summary ---
<EUGENE INGRAM - Last Filed: 06/13/18 11:47> Providers - Providers Date of Admission: 06/09/18 11:57 Date of discharge: 06/13/18 Attending physician: BREANA GONZALES 06/09/18 Consult to Case Management [CONS] Routine Services Needed at Discharge: Home Health Services Notified:: cm notified 06/09/18 13:59 Consult to Physician [CONS] Stat Comment: DR Lucio LOPEZ SPK W/MERCHANDISE PRESENTATION MANAGER SHAN @[facility] Consulting Provider: KEARA JARA Physician Instructions: Reason For Exam: ESRD on HD, line sepsis 06/10/18 06:14 Consult to Physician [CONS] Routine Comment: Consulting Provider: AFIA PROCTOR Physician Instructions: Reason For Exam: Sepsis/bacteremia 06/10/18 09:35 Consult to Physician [CONS] Routine Comment: SUKHI JESSE OVRHShannan PGD CAME 2 ER 1029 Consulting Provider: LEIF SYKES Physician Instructions: Reason For Exam: pc infection [facility] Reason for admission: Sepsis Procedures: Removal of LIJ Permacath Hospital course: 68-year-old -[place] male with history of ESRD on HD T//Wed, hyp erlipidemia, and hypertension presented to the ED with complaints of generalized weakness, chest pain, chills. He was admitted on 06/09 for sepsis with suspected site of origin as the LIJ permacath. He was started on levophed gtt, which was discontinued on 06/10. Pt has positive BC x1 showing gram positive staphylococcus aureus. The second culture NGTD. LIJ permacath was surgically removed under general anaesthesia on 06/10. Currently he is on IV Ancef per ID and will remain on it for approximately 4 weeks. Sepsis with shock (shock resolved of Vasopressors) from suspected HD catheter s/p removal Left IJ perm-a-cath on 06/10/18: follow cultures, continue abx, ID following ESRD on HD Currently on HD: Wednesday AV graft performed by Dr. Leif Sykes a month ago Vascular consult with Dr. Sykes pending, Nephrology following Hypertension- On Norvasc 10mg Continue to monitor BP AOCD: monitor cbc closely, h/o Hyperlipidemia h/o Vitamin D deficiency Per ID: TTE with normal EF (55%- 60%). No vegetations noted. Since bacteremia cleared quickly, no need for JYOTI Disposition: DC-01 TO HOME OR SELFCARE Core Measure Documentation - Palliative Care Palliative Care/ Comfort Measures: Not Applicable - Core Measures Any of the following diagnoses?: none - VTE Discharge Requirements Deep Vein Thrombosis/Pulmonary Embolism Present on Admission: No Exam - Constitutional Vitals: Temp Pulse Resp BP Pulse Ox 98.1 F 76 20 125/79 97 06/13/18 07:52 06/13/18 07:52 06/13/18 07:52 06/13/18 07:52 06/13/18 07:52 General appearance: Present: no acute distress - EENT Eyes: Present: PERRL, EOM intact ENT: hearing intact - Neck Neck: Present: supple - Respiratory Respiratory effort: normal Respiratory: bilateral: diminished (bases) - Cardiovascular Rhythm: regular Heart Sounds: Present: S1 & S2 - Extremities Extremities: normal temperature, normal color Peripheral Pulses: within normal limits - Abdominal General gastrointestinal: Present: soft, non-tender Male genitourinary: Present: deferred - Rectal Rectal Exam: deferred - Integumentary Integumentary: Present: warm, dry - Musculoskeletal Musculoskeletal: strength equal bilaterally - Psychiatric Psychiatric: appropriate mood/affect, cooperative - Neurologic Neurologic: CNII-XII intact Plan Diet: renal Additional Instructions: Pt will need 4 weeks of IV Ancef. ID will coordinate home IV Abx therapy with case management and HD clinic. Follow up with: CINDY ESPINALLA [place] MD LYLE [Primary Care Provider] - 7 Days <BREANA GONZALES - Last Filed: 06/13/18 12:08> Providers - Providers Date of Admission: 06/09/18 11:57 Attending physician: BREANA GONZALES 06/09/18 Consult to Case Management [CONS] Routine Services Needed at Discharge: Home Health Services Notified:: cm notified 06/09/18 13:59 Consult to Physician [CONS] Stat Comment: DR Lucio SHIN W/JAN TORREZ @[id number] Consulting Provider: KEARA JARA Physician Instructions: Reason For Exam: ESRD on HD, line sepsis 06/10/18 06:14 Consult to Physician [CONS] Routine Comment: Consulting Provider: AFIA PROCTOR Physician Instructions: Reason For Exam: Sepsis/bacteremia 06/10/18 09:35 Consult to Physician [CONS] Routine Comment: SUKHI MOLINA OVRHD PGD CAME 2 ER 1029 Consulting Provider: LEIF SYKES Physician Instructions: Reason For Exam: pc infection 06/13/18 11:12 Consult to Case Management [CONS] Urgent Services Needed at Discharge: Other Notified:: no Additional Physician Instructions: [facility] M [phone] O [phone] F [phone] OUTPATIENT PARENTERAL ANTIBIOTIC THERAPY ORDERS Diagnoses: MSSA Bacteremia Antimicrobial administration: Anticipate discharge on IV cefazolin 2gms IV Wednesday, 2gms IV and 3gms IV Wednesday Post HD for 4 weeks ending 07-08-18 Lines: AV graph Lab monitoring: CBC, ALT, AST, once a week preferly on Wednesday morning. Please fax results to [phone] and call [phone] for critical lab results. Laila Ambrocio NP/Dr. Proctor Date: 06/13/18 Primary [facility]: [facility] Hospitalization Hospital course: I saw and evaluated the patient. I agree with the findings and the plan of care as documented in the Nurse Practitioner's~note, with the following corrections and additions. Time spent for discharge: 33 minutes Exam - Constitutional Vitals: Temp Pulse Resp BP Pulse Ox 98.1 F 76 20 125/79 97 06/13/18 07:52 06/13/18 07:52 06/13/18 07:52 06/13/18 07:52 06/13/18 07:52
[2018-06-13] MEDS: SODIUM CHLORIDE FLUSH SYRINGE 10 ML IV SCH (11:07)
[2018-06-13] MEDS: ZYLOPRIM PO SCH (11:11)
[2018-06-13] MEDS: LASIX PO SCH (11:11)
[2018-06-14 17:51] VITALS: BP 109/64
== END 2018-06-13 19:49 | disposition home or self-care (01) | DRG 314 ==
LOC: ED 08:03 → IMCU 11:57 → CC1 06-10 09:35 → IMCU 06-10 10:42 → 2B-ACE 06-11 13:44
PROVIDERS: ADMIT Internal Medicine; ATTEND Internal Medicine
PROC: 06HM33Z Insertion of Infusion Device into Right Femoral Vein, Percutaneous Approach (ICD-10-PCS; principal; 2018-06-09)
PROC: B54BZZA Ultrasonography of Right Lower Extremity Veins, Guidance (ICD-10-PCS; 2018-06-09)
PROC: 05PY33Z Removal of Infusion Device from Upper Vein, Percutaneous Approach (ICD-10-PCS; 2018-06-10)
DX: T82.7XXA Infection and inflammatory reaction due to other cardiac and vascular devices, implants and grafts, initial encounter (principal); N18.6 End stage renal disease; R65.21 Severe sepsis with septic shock; A41.01 Sepsis due to Methicillin susceptible Staphylococcus aureus; A41.02 Sepsis due to Methicillin resistant Staphylococcus aureus; I13.2 Hypertensive heart and chronic kidney disease with heart failure and with stage 5 chronic kidney disease, or end stage renal disease; N25.81 Secondary hyperparathyroidism of renal origin; I25.2 Old myocardial infarction; I50.9 Heart failure, unspecified; K21.9 Gastro-esophageal reflux disease without esophagitis; M19.90 Unspecified osteoarthritis, unspecified site; J45.909 Unspecified asthma, uncomplicated; F17.210 Nicotine dependence, cigarettes, uncomplicated; E78.5 Hyperlipidemia, unspecified; E55.9 Vitamin D deficiency, unspecified; M10.9 Gout, unspecified; E11.22 Type 2 diabetes mellitus with diabetic chronic kidney disease; D63.8 Anemia in other chronic diseases classified elsewhere; Y83.8 Other surgical procedures as the cause of abnormal reaction of the patient, or of later complication, without mention of misadventure at the time of the procedure; Y92.89 Other specified places as the place of occurrence of the external cause; Z79.82 Long term (current) use of aspirin; Z86.73 Personal history of transient ischemic attack (TIA), and cerebral infarction without residual deficits
CPT/HCPCS: 36415; 71045; 80048; 80053; 80061; 80202; 82140; 83036; 84132; 84484; 85007; 85025; 87040; 87076; 87186; 93005; 93010; 93306; G0378; A9270-GY; J0690; J0692; J0885; J1170; J3370; J7030; J7040

== ENCOUNTER 2019-05-30 11:02 | Emergency (ER) | payer MEDICARE ==
[2019-05-30 11:17] VITALS: BP 140/92
[2019-05-30] MEDS ORDERED: HYDROcodone/ACETAMINOPHEN 10-325MG TAB PO ONE (11:40)
--- NOTE | 2019-05-30 12:10 | Emergency Department Report ---
Upper Extremity - HPI Chief Complaint: Medical Clearance Stated Complaint: LEFT SHOULDER PAIN Time Seen by Provider: 05/30/19 11:39 Upper Extremity: Left Shoulder Occurred When: 1 Day Symptoms: Yes Pain with Movement, No Deformity, No Limited Range of Movement, No Numbness, No Weakness, No Swelling, No Bruising/Ecchymosis, No Laceration or Abrasion Other History: 68-year-old -Irish male comes in complaining of left shoulder pain x1 day. Patient denies any chest pain shortness of breath or injuries. Patient reports he completed dialysis today. Patient reports he goes to dialysis Wednesday and Saturdays. ED Review of Systems ROS: Stated complaint: LEFT SHOULDER PAIN Other details as noted in HPI Comment: All other systems reviewed and negative ED Past Medical Hx - Past Medical History Previous Medical History?: Yes Hx Hypertension: Yes Hx CVA: Yes Hx Heart Attack/AMI: Yes Hx Congestive Heart Failure: Yes Hx GERD: Yes Hx Renal Disease: Yes (ESRD -) Hx Arthritis: Yes Hx Asthma: Yes Additional medical history: cholesterol, gout - Surgical History Past Surgical History?: Yes Additional Surgical History: Exploratory laparotomy for his pancreas, AV graft placement right upper extremity April 2018 - Social History Smoking Status: Light Tobacco Smoker - Medications Home Medications: Home Medications Medication Instructions Recorded Confirmed Last Taken Type AtorvaSTATin [Lipitor] 40 mg PO QHS #30 tab 08/14/17 05/19/19 05/05/19 20:00 Rx allopurinoL [Zyloprim] 100 mg PO Q48HR 11/02/17 05/19/19 05/05/19 09:00 History Cholecalciferol (Vitamin D3) 5,000 unit PO DAILY 04/01/19 05/19/19 05/05/19 09:00 History [Vitamin D3 5,000 UNIT] Ferric Citrate (Nf) [Auryxia] 2 tab PO TID 04/01/19 05/19/19 05/05/19 20:00 History Gabapentin 1 cap PO QHS 04/01/19 05/19/19 05/05/19 20:00 History Pantoprazole [Protonix TAB] 40 mg PO BID #60 tablet 04/05/19 05/19/19 05/05/19 20:00 Rx Clopidogrel [Plavix] 75 mg PO QDAY #30 tablet 05/11/19 05/19/19 Unknown Rx Hydrocortisone [Cortef TAB] 20 mg PO QDAY #30 tablet 05/11/19 05/19/19 Unknown Rx Midodrine [Proamatine] 5 mg PO TID@0800,1200,1600 #30 05/11/19 05/19/19 Unknown Rx tablet oxyCODONE /ACETAMINOPHEN [Percocet 1 tab PO Q4H PRN #20 tablet 05/11/19 05/19/19 Unknown Rx 5/325 mg] predniSONE [Deltasone] 40 mg PO QDAY #20 tablet 05/13/19 05/19/19 Unknown Rx Upper Extremity Exam - Exam General: Vital signs noted. No distress. Alert and acting appropriately. Head and Torso: No HEENT Abnormality, No Neck Tenderness, No Chest/Lungs Abnormality, No Abdominal Tenderness, No Back Tenderness Shoulder Exam: Yes Shoulder Tenderness, Yes Normal Range of Motion in Shoulder, Yes AC Joint Tenderness, No Clavicle Tenderness, No Shoulder Deformity Arm Exam: No Arm/Humerus Tenderness, No Arm Deformity Elbow: No Elbow Tenderness, No Normal Range of Motion in Elbow, No Elbow Deformity Forearm: No Forearm Tenderness, No Forearm Deformity, No Pain with Pronation, No Pain with Supination Wrist: Yes Normal ROM in Wrist, No Wrist Tenderness, No Wrist Deformity, No Snuffbox Tenderness, No Pain with Axial Thumb Compression CMS Exam: No Broken Skin, No Normal Distal Pulses, No Normal Capillary Refill, No Normal Distal Sensation ED Course Vital Signs 05/30/19 11:08 Temperature 98.7 F Pulse Rate 113 H Respiratory 20 Rate Blood Pressure 140/92 O2 Sat by Pulse 100 Oximetry ED Medical Decision Making - Radiology Data Radiology results: report reviewed Patient Name: HAILE REGALADO Gender: Male Date of : 1950 Referring Provider: LISA MARTINEZ Organization: [facility] Accession Number: [id number] Requested Date: May 30, 2019 11:40 Report Status: Final Requested Procedure: 1 Procedure Description: XR shoulder 2+V LT Modality: XR Findings Reporting MD: Renzo Frost Dictation Time: May 30, 2019 11:16 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 COMPARISON: None available. FINDINGS: BONES/JOINT(S): No acute fracture or subluxation. Mild DJD in the AC joint. No focal bone lesion. SOFT TISSUES: Vascular graft projects over the left axillary region. ADDITIONAL FINDINGS: None. Signer Name: Renzo Frost MD Signed: 05/30/2019 11:16 AM Workstation Name: [id number] - Medical Decision Making 68-year-old -Irish male comes in complaining of left shoulder pain x1 day. Patient denies any chest pain shortness of breath or injuries. Patient reports he completed dialysis today. Patient reports he goes to dialysis Wednesday and Saturdays. Patient has not taken any medications for pain or chronic disease as he reports he does not take medications before he goes to dialysis. Critical care attestation.: If time is entered above; I have spent that time in minutes in the direct care of this critically ill patient, excluding procedure time. ED Disposition Clinical Impression: Shoulder pain, left Qualifiers: Chronicity: acute Qualified Code(s): M25.512 - Pain in left shoulder Degenerative joint disease, shoulder, left Qualifiers: Osteoarthritis type: primary Qualified Code(s): M19.012 - Primary osteoarthritis, left shoulder Disposition: DC-01 TO HOME OR SELFCARE Is pt being admited?: No Does the pt Need Aspirin: No Condition: Stable Instructions: Osteoarthritis (ED) Additional Instructions: X-ray is negative for any acute findings. Does show moderate degenerative joint disease which is osteoarthritis. I recommend to take your Percocet as prescribed at your last ER visit. And to follow-up with a orthopedic provider I have listed 1 below for your convenience Referrals: FUNMI TODD MD [Primary Care Provider] - 3-5 Days
--- NOTE | 2019-05-30 12:20 | XRay Report ---
XR shoulder 2+V LT INDICATION / CLINICAL INFORMATION: MAIN: left shoulder pain x 1 day. COMPARISON: None available. FINDINGS: BONES/JOINT(S): No acute fracture or subluxation. Mild DJD in the AC joint. No focal bone lesion. SOFT TISSUES: Vascular graft projects over the left axillary region. ADDITIONAL FINDINGS: None. Signer Name: Renzo Frost MD Signed: 05/30/2019 12:16 PM Workstation Name: [id number]
== END 2019-05-30 12:35 | disposition home or self-care (01) ==
LOC: ED 11:02
DX: M19.012 Primary osteoarthritis, left shoulder (principal); I13.2 Hypertensive heart and chronic kidney disease with heart failure and with stage 5 chronic kidney disease, or end stage renal disease; N18.6 End stage renal disease; I50.9 Heart failure, unspecified; Z99.2 Dependence on renal dialysis; F17.200 Nicotine dependence, unspecified, uncomplicated; J45.909 Unspecified asthma, uncomplicated
CPT/HCPCS: 99283

== ENCOUNTER 2019-12-11 13:35 | Outpatient (CLI) | payer MEDICARE ==
[2019-12-11] MEDS ORDERED: LIDOCAINE (4%) 40 MG/ML TOPICAL SOLN 50 ML BOTTLE TP ONE (14:12)
== END 2019-12-11 13:36 | disposition home or self-care (01) ==
LOC: WOUND 13:35
PROVIDERS: ATTEND Surgery
DX: S71.102A Unspecified open wound, left thigh, initial encounter (principal); L02.416 Cutaneous abscess of left lower limb; I13.2 Hypertensive heart and chronic kidney disease with heart failure and with stage 5 chronic kidney disease, or end stage renal disease; N18.6 End stage renal disease; I50.9 Heart failure, unspecified; I25.2 Old myocardial infarction; I73.9 Peripheral vascular disease, unspecified; F17.210 Nicotine dependence, cigarettes, uncomplicated; Z86.73 Personal history of transient ischemic attack (TIA), and cerebral infarction without residual deficits; Z90.49 Acquired absence of other specified parts of digestive tract; Z99.2 Dependence on renal dialysis; X58.XXXA Exposure to other specified factors, initial encounter; Y93.89 Activity, other specified; Y92.89 Other specified places as the place of occurrence of the external cause; Y99.8 Other external cause status
CPT/HCPCS: 99205; 99215; G0463

== ENCOUNTER 2020-01-01 09:23 | Outpatient (CLI) | payer MEDICARE ==
[2020-01-01] MEDS ORDERED: LIDOCAINE (4%) 40 MG/ML TOPICAL SOLN 50 ML BOTTLE TP SCH (09:30)
== END 2020-01-01 09:24 | disposition home or self-care (01) ==
LOC: WOUND 09:23
PROVIDERS: ATTEND Surgery
DX: L02.416 Cutaneous abscess of left lower limb (principal); I13.2 Hypertensive heart and chronic kidney disease with heart failure and with stage 5 chronic kidney disease, or end stage renal disease; N18.6 End stage renal disease; I50.9 Heart failure, unspecified; I25.2 Old myocardial infarction; I73.9 Peripheral vascular disease, unspecified; F17.210 Nicotine dependence, cigarettes, uncomplicated; Z86.73 Personal history of transient ischemic attack (TIA), and cerebral infarction without residual deficits; Z90.49 Acquired absence of other specified parts of digestive tract; Z99.2 Dependence on renal dialysis
CPT/HCPCS: 99213; G0463

== ENCOUNTER 2020-09-13 18:47 | Emergency (ER) | payer MEDICARE ==
--- NOTE | 2020-09-14 02:07 | Emergency Department Report ---
ED Shortness of Breath HPI - General Chief Complaint: Dyspnea/Respdistress Stated Complaint: HEADCOLD Time Seen by Provider: 09/14/20 01:54 Source: patient Mode of arrival: Ambulatory Limitations: No Limitations - History of Present Illness Initial Comments: Patient is a 70-year-old male that presents emergency room with complaints of shortness of breath. Patient dates short of breath about 3 days. Patient dates he has had a head cold for 3 days. Patient states he feels like he has chest congestion. Patient states he has a cough. Patient denies fever and chills. Patient states he has COVID-19 vaccine earlier this summer. Patient states he h ad both doses. Patient states he was so congested that he did not go to dialysis on . Patient states he normally goes Wednesday, and Wednesday. Patient denies chest pain. Patient states that he tried Mucinex, Flonase and Robitussin. Patient denies recent travel. Patient denies recent international travel. Patient denies exposure to the novel coronavirus. Patient denies sick contacts. Patient denies fever and chills. Patient denies loss of smell. Patient denies diarrhea. Patient denies coming in contact with anybody with symptoms of the novel coronavirus. Complaint: shortness of breath -: Sudden, days(s) Consistency: constant Improves With: rest Worsens With: exertion Known History Of: congestive heart failure Context: recent URI Associated Symptoms: cough, sputum production Treatments Prior to Arrival: other - Related Data Home Oxygen Therapy: No Home Medications Medication Instructions Recorded Confirmed Last Taken Aspirin [Adult Aspirin] 81 mg PO DAILY 06/23/19 10/29/19 Unknown Lasix TAB 81 mg PO DAILY 06/23/19 10/29/19 Unknown Omeprazole 40 mg PO BID 06/23/19 10/29/19 Unknown Phoslo 667 mg PO TID 06/23/19 10/29/19 Unknown carvediloL [Coreg] 6.25 mg PO BID 06/23/19 10/29/19 Unknown Previous Rx's Medication Instructions Recorded Last Taken Type Aspirin EC [Halfprin EC] 81 mg PO QDAY tablet 07/01/19 Unknown Rx AtorvaSTATin [Lipitor] 40 mg PO QHS #30 tablet 07/01/19 Unknown Rx Cholecalciferol (Vitamin D3) 5,000 unit PO DAILY #30 tablet 07/01/19 Unknown Rx [Vitamin D3] Clopidogrel [Plavix] 75 mg PO QDAY #30 tablet 07/01/19 Unknown Rx Epoetin Andrez 10,000 Unit [Procrit] 20,000 unit IV NAHOMI PRN 30 Days 07/01/19 Unknown Rx vial Ferric Citrate (Nf) [Auryxia] 2 tab PO TID #30 07/01/19 Unknown Rx Gabapentin 1 cap PO QHS #30 cap 07/01/19 Unknown Rx Gabapentin 100 mg PO QHS #30 capsule 07/01/19 Unknown Rx Pantoprazole [Protonix TAB] 40 mg PO BID #60 tablet 07/01/19 Unknown Rx allopurinoL [Zyloprim] 100 mg PO DAILY #30 07/01/19 Unknown Rx oxyCODONE /ACETAMINOPHEN [Percocet 1 tab PO Q4H PRN #12 tablet 07/01/19 Unknown Rx 5/325 mg] oxyCODONE ER [oxyCONTIN ER] 20 mg PO Q12HR #8 tablet 07/01/19 Unknown Rx DOXYCYCLINE Hyclate [Vibramycin 100 mg PO Q12HR #20 capsule 10/29/19 Unknown Rx CAP] cephALEXin [Keflex] 500 mg PO Q12HR #20 cap 10/29/19 Unknown Rx Azithromycin [Zithromax Tri-Robert] 500 mg PO DAILY 3 Days #3 tablet 09/14/20 Unknown Rx Allergies Allergy/AdvReac Type Severity Reaction Status Date / Time No Known Allergies Allergy Verified 09/05/19 17:27 ED Review of Systems ROS: Stated complaint: HEADCOLD Other details as noted in HPI Constitutional: denies: chills, fever Eyes: denies: eye pain, eye discharge, vision change ENT: denies: ear pain, throat pain Respiratory: cough, shortness of breath. denies: wheezing Cardiovascular: denies: chest pain, palpitations Endocrine: no symptoms reported Gastrointestinal: denies: abdominal pain, nausea, diarrhea Genitourinary: denies: urgency, dysuria Musculoskeletal: denies: back pain, joint swelling, arthralgia Skin: denies: rash, lesions Neurological: denies: headache, weakness, paresthesias Psychiatric: denies: anxiety, depression Hematological/Lymphatic: denies: easy bleeding, easy bruising ED Past Medical Hx - Past Medical History Previous Medical History?: Yes Hx Hypertension: Yes Hx CVA: Yes Hx Heart Attack/AMI: Yes Hx Congestive Heart Failure: Yes Hx GERD: Yes Hx Renal Disease: Yes (ESRD T-Th-S) Hx Arthritis: Yes Hx Asthma: Yes Additional medical history: cholesterol, gout - Surgical History Past Surgical History?: Yes Additional Surgical History: Exploratory laparotomy for his pancreas, AV graft placement right upper extremity April 2018 - Family History Family history: no significant - Social History Smoking Status: Current Every Day Smoker Substance Use Type: None - Medications Home Medications: Home Medications Medication Instructions Recorded Confirmed Last Taken Type Aspirin [Adult Aspirin] 81 mg PO DAILY 06/23/19 10/29/19 Unknown History Lasix TAB 81 mg PO DAILY 06/23/19 10/29/19 Unknown History Omeprazole 40 mg PO BID 06/23/19 10/29/19 Unknown History Phoslo 667 mg PO TID 06/23/19 10/29/19 Unknown History carvediloL [Coreg] 6.25 mg PO BID 06/23/19 10/29/19 Unknown History Aspirin EC [Halfprin EC] 81 mg PO QDAY tablet 07/01/19 10/29/19 Unknown Rx AtorvaSTATin [Lipitor] 40 mg PO QHS #30 tablet 07/01/19 10/29/19 Unknown Rx Cholecalciferol (Vitamin D3) 5,000 unit PO DAILY #30 tablet 07/01/19 10/29/19 Unknown Rx [Vitamin D3] Clopidogrel [Plavix] 75 mg PO QDAY #30 tablet 07/01/19 10/29/19 Unknown Rx Epoetin Andrez 10,000 Unit [Procrit] 20,000 unit IV NAHOMI PRN 30 Days 07/01/19 10/29/19 Unknown Rx vial Ferric Citrate (Nf) [Auryxia] 2 tab PO TID #30 07/01/19 10/29/19 Unknown Rx Gabapentin 1 cap PO QHS #30 cap 07/01/19 10/29/19 Unknown Rx Gabapentin 100 mg PO QHS #30 capsule 07/01/19 10/29/19 Unknown Rx Pantoprazole [Protonix TAB] 40 mg PO BID #60 tablet 07/01/19 10/29/19 Unknown Rx allopurinoL [Zyloprim] 100 mg PO DAILY #30 07/01/19 10/29/19 Unknown Rx oxyCODONE /ACETAMINOPHEN [Percocet 1 tab PO Q4H PRN #12 tablet 07/01/19 10/29/19 Unknown Rx 5/325 mg] oxyCODONE ER [oxyCONTIN ER] 20 mg PO Q12HR #8 tablet 07/01/19 10/29/19 Unknown Rx DOXYCYCLINE Hyclate [Vibramycin 100 mg PO Q12HR #20 capsule 10/29/19 Unknown Rx CAP] cephALEXin [Keflex] 500 mg PO Q12HR #20 cap 10/29/19 Unknown Rx Azithromycin [Zithromax Tri-Robert] 500 mg PO DAILY 3 Days #3 tablet 09/14/20 Unknown Rx ED Physical Exam - General Limitations: No Limitations General appearance: alert, in no apparent distress - Head Head exam: Present: atraumatic, normocephalic - Eye Eye exam: Present: normal appearance - ENT ENT exam: Present: mucous membranes moist, other (Enlarged nasal turbinates and tenderness palpation over the maxillary sinus.) - Neck Neck exam: Present: normal inspection - Respiratory Respiratory exam: Present: normal lung sounds bilaterally. Absent: respiratory distress - Cardiovascular Cardiovascular Exam: Present: regular rate, normal rhythm. Absent: systolic murmur, diastolic murmur, rubs, gallop - GI/Abdominal GI/Abdominal exam: Present: soft, normal bowel sounds - Rectal Rectal exam: Present: deferred - Extremities Exam Extremities exam: Present: normal inspection - Back Exam Back exam: Present: normal inspection - Neurological Exam Neurological exam: Present: alert, oriented X3 - Psychiatric Psychiatric exam: Present: normal affect, normal mood - Skin Skin exam: Present: warm, dry, intact, normal color. Absent: rash ED Course Vital Signs 09/13/20 18:52 Temperature 98.4 F Pulse Rate 80 Respiratory 20 Rate Blood Pressure 174/90 [Left] O2 Sat by Pulse 96 Oximetry - Reevaluation(s) Reevaluation #1: I discussed the results with patient. Discussed possibly being admitted for inpatient dialysis and the patient states that he has an appointment already with his dialysis clinic and he would rather go there and does not want to be admitted to the hospital. I discussed all results and clinical findings with patient. I discussed plan of care with patient. Patient agrees with plan of care. Patient is stable for discharge. Patient will be discharged home. Patient given discharge instructions. Patient voiced understanding of discharge instructions. 09/14/20 04:32 ED Medical Decision Making - Lab Data Result diagrams: 09/14/20 02:51 09/14/20 01:58 - Radiology Data Radiology results: report reviewed interpreted by me: Chest x-ray: No pneumonia, no pneumothorax, no foreign body, no osseous findings, no acute findings CHEST 1 VIEW 09/14/2020 1:28 AM INDICATION / CLINICAL INFORMATION: Dyspnea. COMPARISON: 09/05/19 FINDINGS: SUPPORT DEVICES: None. HEART / MEDIASTINUM: No significant abnormality. LUNGS / PLEURA: No significant pulmonary or pleural abnormality. No pneumothorax. ADDITIONAL FINDINGS: No significant additional findings. IMPRESSION: 1. No acute findings. - Medical Decision Making Patient is a 70-year-old male that presents emergency room with complaints of shortness of breath, cough, upper respiratory infection and missed dialysis. Patient states he missed dialysis because he was having so much nasal congestion. Patient had labs done which were essentially unremarkable except for finding consistent with end-stage renal disease. Patient was found to have a hyperkalemia 5.7. I discussed inpatient dialysis patient patient states he would rather not be admitted to the hospital and rather go to his outpatient clinic and have dialysis there. Patient is stable for discharge. Patient will be treated for sinus infection. Patient patient require further inpatient s ervice. Patient does not require further emergency medical services. Patient stable for discharge. Patient discharged home. Patient will be discharged home with antibiotic for the sinus infection. Patient also instructed to continue his Flonase. While in the ER the patient had an EKG and a chest x-ray. I personally reviewed the EKG and chest x-ray. Patient's EKG shows a normal sinus rhythm. Patient's chest x-ray shows no acute findings. - Differential Diagnosis Sinusitis, URI, shortness of breath, missed dialysis Critical care attestation.: If time is entered above; I have spent that time in minutes in the direct care of this critically ill patient, excluding procedure time. ED Disposition Clinical Impression: ESRD (end stage renal disease) on dialysis, Acute hyperkalemia, SOB (shortness of breath), Missed dialysis URI (upper respiratory infection) Qualifiers: URI type: unspecified URI Qualified Code(s): J06.9 - Acute upper respiratory infection, unspecified Sinusitis Qualifiers: Sinusitis location: frontal Chronicity: acute Recurrence: non-recurrent Qualified Code(s): J01.10 - Acute frontal sinusitis, unspecified Disposition: - TO HOME OR SELFCARE Is pt being admited?: No Does the pt Need Aspirin: No Condition: Stable Instructions: Upper Respiratory Infection, Adult, [id number], Shortness of Breath, Adult, Oxal-[id number], Sinusitis, Adult, [id number]-[id number], Hyperkalemia, [id number] Additional Instructions: Patient to follow-up with primary care in 2 to 3 days. Patient to follow-up with continuity writer in 2 to 3 days. Patient to leave the ER and go directly to dialysis now. Patient to rest. Patient to increase water. Patient to take Tylenol as needed for pain. Patient to continue htcp-[id number] medications for upper respiratory infection. Patient to continue Flonase. Patient to take meds as directed. Patient to return to the ER if condition worsens, changes or new symptoms arise. Prescriptions: Azithromycin [Zithromax Tri-Robert] 500 mg PO DAILY 3 Days #3 tablet Referrals: PRIMARY CARE, [Primary Care Provider] - 2-3 Days Time of Disposition: 04:38
--- NOTE | 2020-09-14 02:42 | XRay Report ---
CHEST 1 VIEW 09/14/2020 1:28 AM INDICATION / CLINICAL INFORMATION: Dyspnea. COMPARISON: 09/05/19 FINDINGS: SUPPORT DEVICES: None. HEART / MEDIASTINUM: No significant abnormality. LUNGS / PLEURA: No significant pulmonary or pleural abnormality. No pneumothorax. ADDITIONAL FINDINGS: No significant additional findings. IMPRESSION: 1. No acute findings. Signer Name: Maximiliano Torres MD Signed: 09/14/2020 2:38 AM Workstation Name: [id number]
[2020-09-14 02:43] LABS: Albumin 3.9 g/dL (3.9-5); Calcium 9.3 mg/dL (8.4-10.2)
[2020-09-14 03:17] LABS: Basophils % (Auto) 0.6 % (0.0-1.8); Eosinophils # (Auto) 0.4 K/mm3 (0.0-0.4); Hematocrit 39.7 % (35.5-45.6); Hemoglobin 12.9 gm/dl (11.8-15.2); Lymphocytes # (Auto) 1.9 K/mm3 (1.2-5.4); Lymphocytes % (Auto) 26.6 % (13.4-35.0); Mean Corpuscular HGB Conc 33 % (32-34); Mean Corpuscular Volume 96 fl (84-94); Monocytes # (Auto) 0.8 K/mm3 (0.0-0.8); Monocytes % (Auto) 11.2 % (0.0-7.3); Platelet Count 211 K/mm3 (140-440); Red Blood Count 4.16 M/mm3 (3.65-5.03); Red Cell Distribution Width 15.4 % (13.2-15.2)
[2020-09-14 04:33] LABS: Chol/HDL Ratio 3.26 %
[2020-09-14 06:28] VITALS: BP 186/90
--- NOTE | 2020-09-17 09:10 | Electrocardiograph Report ---
[facility] Test Date: 2020-09-14 Test Time: 02:17:48 Pat Name: HAILE REGALADO Department: Room: Gender: M Mri Technician: tram : 1950 Requested By: SRINI CLARK III Order Number: [id number] Reading MD: Konstantin King Measurements Intervals [place] Rate: 74 P: 63 DC: 165 QRS: -48 QRSD: 87 T: 14 QT: 439 QTc: 488 Interpretive Statements Sinus rhythm nonspecific st-t No previous ECG available for comparison Electronically Signed On 09-17-2020 9:09:48 EDT by Konstnatin King
== END 2020-09-14 05:15 | disposition home or self-care (01) ==
LOC: ED 18:47
DX: J06.9 Acute upper respiratory infection, unspecified (principal); J32.9 Chronic sinusitis, unspecified; E87.5 Hyperkalemia; R06.02 Shortness of breath; I50.9 Heart failure, unspecified; I13.2 Hypertensive heart and chronic kidney disease with heart failure and with stage 5 chronic kidney disease, or end stage renal disease; N18.6 End stage renal disease; E11.22 Type 2 diabetes mellitus with diabetic chronic kidney disease; M19.90 Unspecified osteoarthritis, unspecified site; J45.909 Unspecified asthma, uncomplicated; E78.00 Pure hypercholesterolemia, unspecified; F17.200 Nicotine dependence, unspecified, uncomplicated; Z91.15 Patient's noncompliance with renal dialysis; Z79.899 Other long term (current) drug therapy; Z86.73 Personal history of transient ischemic attack (TIA), and cerebral infarction without residual deficits; Z98.890 Other specified postprocedural states; Z99.2 Dependence on renal dialysis
CPT/HCPCS: 36415; 71045; 80053; 80061; 82140; 84484; 85025; 93005